=== PATIENT | male | born 1940 | race Caucasian/White ===

== ENCOUNTER → 2017-10-08 09:50 | Outpatient (CLI) | payer MEDICARE, BC ==
[2015-10-31 09:19] VITALS: BMI 30.5
[~2017-10-08 09:50] MED LIST: CHLORTHALIDONE50 MG PO; FLAGYL500 MG PO; GLUCOPHAGE1000 MG PO; HUMULIN R100 U/ML; HYDROCODONE-APA1 TAB PO; KLOR-CON M2020 MEQ PO; LEVAQUIN500 MG PO; LOTREL 10-40 M1 EACH PO; MULTIPLE VITAMI1 TA1 PO; PROSCAR5 MG PO; PROTONIX40 MG PO; TENORMIN100 MG PO; ZYLOPRIM300 MG PO; [UNRECOGNIZED DRUG - CODE] INJ
[2017-10-08 10:23] LABS: ANION GAP 13.6 mmol/L (8-16); CALCIUM 9.1 mg/dL (8.5-10.1); CARBON DIOXIDE 28.3 mmol/L (21.0-32.0); CREATININE - SERUM 1.2 mg/dL (0.6-1.3); POTASSIUM - SERUM 3.9 mmol/L (3.5-5.1)
== END | disposition home or self-care (01) ==
LOC: D.LAB 10-07 10:15 → D.MRI 10-07 10:30 → D.LAB 09:50
PROVIDERS: Family Medicine
DX: R42 Dizziness and giddiness (principal)

== ENCOUNTER → 2018-02-17 11:00 | Outpatient (CLI) | payer MEDICARE, BC ==
[2015-10-31 09:19] VITALS: BMI 30.5
--- NOTE | ~2018-02-17 | EC ---
PATIENT:WILEY KOWALSKI DATE OF SERVICE: 02/17/18 SEX: M MEDICAL RECORD: [id number] DATE OF : 38 LOCATION:D[facility] AGE OF PATIENT: 77 ADMISSION DATE: 02/17/18 REFERRING PHYSICIAN: INTERPRETING PHYSICIAN: DIAMANTE CARLOS MD ECHOCARDIOGRAM REPORT ECHO CHARGES 4 ECHO COMPLETE Date: 02/17 CLINICAL DIAGNOSIS: FATIGUE,AORTIC STENOSIS,ANGINA ECHOCARDIOGRAPHIC MEASUREMENTS (adult normal given) AC root (d.<3.7cm) 3.7 cm LV Septum d (<1.2 cm> 1.9 cm Valve Excursion 1.3 cm LV Septum (systole) 2.1 cm Left Atria (s.<4.0cm> 4.8 cm LVPW d(<1.2cm) 1.7 cm RV (d.<2.3cm) 3.7 cm LVPW (sytole) 2.2 cm LV diastole(<5.6CM) 4.9 cm MV E-F(>70mm/sec) cm LV systole 3.1 cm LVOT Diameter 1.4 cm MV exc.(>10mm) 2.1 cm Est.ejection fraction (50-75%) % DOPPLER: LVIT cm/sec A 76.0 cm/sec E 150 cm/sec LA cm/sec RVSP 56 mmHg LVOT 137 cm/sec AOP1/2T m/s Asc. Ao 284 cm/sec RVOT 103 cm/sec RA cm/sec PA 126 cm/sec AV Gradient Peak 32.19mmHg AV Mean 17.02mmHg AV Area 0.7 cm MV Gradient Peak 8.73 mmHg MV Mean 2.65 mmHg MV Area cm COMMENTS: MARYLU TRACED 1.6CM Flight Controls Engineer: Mirza BABB Stage Manager: Rahul Carlos TAPE# PACS Pericardial Effusion N DATE OF SERVICE: 02/17/2018 PROCEDURE: Transthoracic echocardiogram. FINDINGS: 1. Left ventricle shows evidence of left ventricular hypertrophy. Inflow characteristics, however, normal. Ejection fraction is 60% without any regional wall motion abnormalities. 2. The left atrium is moderate to severely dilated. 3. The mitral valve has mild mitral regurgitation. ECHOCARDIOGRAM REPORT [id number] WILEY KOWALSKI 4. The aortic valve is thickened. There is evidence of mild aortic stenosis with a peak gradient of 30 mmHg. It is a trileaflet structure and has good leaflet motility at the tips. 5. The tricuspid valve has mild tricuspid regurgitation, RVSP of 50 mmHg. 6. The pericardium is normal. 7. The right ventricle and right atrium are mildly dilated. CONCLUSION: The patient has evidence of mild hypertensive heart disease, dilatation of the left atrium, and evidence of mild aortic stenosis. TRANSINT:[id number] Voice Confirmation ID: [id number] DOCUMENT ID: [id number] DIAMANTE CARLOS MD at 0819 CC: [id number] DICTATION DATE: 02/18/18 0859 SUPERVISOR POULTRY HATCHERY: 02/18/18 [address] [facility] CLI 02/17/18 [facility] [address] [place] [address]
== END | disposition home or self-care (01) ==
LOC: D.ECHO 11:00
DX: R06.00 Dyspnea, unspecified (principal); R53.83 Other fatigue; I35.0 Nonrheumatic aortic (valve) stenosis; I20.9 Angina pectoris, unspecified; R06.09 Other forms of dyspnea; I73.9 Peripheral vascular disease, unspecified; I25.10 Atherosclerotic heart disease of native coronary artery without angina pectoris; R09.89 Other specified symptoms and signs involving the circulatory and respiratory systems

== ENCOUNTER → 2018-03-16 19:14 | Outpatient (CLI) | payer MEDICARE, BC ==
[2015-10-31 09:19] VITALS: BMI 30.5
[~2018-03-16 19:14] MED LIST changes: +BAYER CHEWABLE81 MG PO; +COLACE100 MG PO; +CORDARONE200 MG PO; +GLUCOTROL 5 MG T5 MG PO; +HEMOCYTE PLUS C1 CAP PO; +K-DUR20 MEQ PO; +LOTENSIN5 MG PO; +MECLIZINE HCL25 MG PO; +NORVASC5 MG PO; +NOVOLIN N100 U/ML SQ; +NOVOLIN R100 U/ML SQ; +PACERONE200 MG PO; +PERCOCET 5-3251 TAB PO; +TENORMIN50 MG PO
[2018-03-16 21:15] LABS: CHOL - HDL RATIO 5.5 ratio (2.3-4.9); LDL-HDL RATIO 3.4 ratio (1.5-3.5)
== END | disposition home or self-care (01) ==
LOC: D.LAB 19:14
PROVIDERS: Internal Medicine Cardiovascular Disease
DX: E78.5 Hyperlipidemia, unspecified (principal)

== ENCOUNTER 2018-03-26 06:27 | Outpatient (CLI) | payer MEDICARE, BC ==
[~2018-03-26] VITALS: Ht 175.3 cm; Wt 94.5 kg
--- NOTE | ~2018-03-26 | HEMODYNAMI ---
PATIENT:WILEY KOWALSKI MEDICAL RECORD: [id number] : 38 LOCATION:D.[facility] ADMISSION DATE: 03/26/18 Generatedon:03/26/20189:52 Patient name: WILEY KOWALSKI Patient #: [id number] SSN: : 1940 Date of study: 03/26/2018 Page: Of Hemodynamic Procedure Report Patient Data Patient Demographics Procedure consent was obtained First Name: WILEY Gender: Male Last Name: DEX : 1940 [facility] Initial: FRANK Age: 77 year(s) Patient #: [id number] Race: Unknown Additional ID: [id number] Contact details Address: [address] [place] [address] State: [place] City: [facility] Zip code: [address] Past Medical History Allergies Allergen Reaction Date Comments Reported Other allergy 03/26/2018 FLOMAX,TERAZOSIN Admission Admission Data Admission Date: 03/26/2018 Admission Time: 6:27 Admit Source: Other Lab Results Lab Result Date: 03/26/2018 Lab Result Time: 7:12 Biochemistry Name Units Result Min Max BUN mg/dl 18 --(---*)-- 7 18 Creatinine mg/dl 1.3 --(---*)-- 0.6 1.3 CBC Name Units Result Min Max Hematocrit % 35.9 *-(----)-- 42 54 Hemoglobin g/dl 10.6 *-(----)-- 13.5 17.5 Procedure Procedure Types Cath Procedure Diagnostic Procedure Right Heart RHC and LHC w/Coronaries Sedation Charges Moderate Sedation up to 30 minutes Procedure Description Procedure Date Procedure Date: 03/26/2018 Procedure Start Time: 9:13 Procedure End Time: 9:51 Procedure Staff Name Function Christofer Levi MD Performing Physician Dario Rene RT Monitor Katherin Lemon RT Scrub Amaury Faust RN Nurse Procedure Data Cath Procedure Fluoroscopy Diagnostic fluoroscopy Total fluoroscopy Time: 8.3 time: 8.3 min min Diagnostic fluoroscopy Total fluoroscopy dose: dose: 1339 mGy 1339 mGy Contrast Material Contrast Material Type Amount (ml) Isovue 370 57 Entry Location Entry Primary Successful Side Size Upsize Upsize Entry Closure Haider ccessful Closure Location (Fr) 1 (Fr) 2 (Fr) Remarks Device Remarks Radial Right 6 Fr Mechanical artery Short Compression Femoral Right 7 Fr Manual artery Short Compression Estimated blood loss: 5 ml Diagnostic catheters Device Type Used For End Catheter Placement SWAN 7Fr Thermodilution Procedure cather (131F7P) DIAGNOSTIC [place] 110cm 5 Procedure Fr catheter ([id number]) Procedure Complications No complications Procedure Medications Medication Administration Route Dosage Oxygen etCO2 Nasal cannula 2 l/min 0.9% NaCl I.V. 100 ml/hr Heparin Flush Bag added to field 2 bags (1000units/500ml NS) Radial Cocktail added to field 1 syringe (Verapomil 2mg/Nitro 400mcg/Heparin 1500units) Fentanyl I.V. 25 mcg Versed I.V. 1 mg Radial Cocktail I.A. 1 syringe (Verapomil 2mg/Nitro 400mcg/Heparin 1500units) Fentanyl I.V. 25 mcg Versed I.V. 0.5 mg Hemodynamics Rest HGB: 10.6 (g/dl) Heart Rate: 71 (bpm) Oxygen Saturations Time Location Saturations Hgb (g/dl) O2 Content Use (%) (ml/L) 9:18 PCW 79.4 9:19 AO 96.5 9:20 PA 68.5 9:24 RV 70.4 9:25 RA 72.2 Pressure Samples Time Site Value (mmHg) Purpose Heart Use Rate(bpm) 9:19 PCW 23/28(23) Snapshot 65 9:20 PA 49/23(34) Snapshot 66 9:24 RV 56/12,20 Snapshot 65 9:25 RA 21/19(18) Snapshot 65 9:25 RA 20/20(18) Snapshot 74 9:37 LV 171/3,28 EDP 67 9:38 LV 176/2,26 Snapshot 67 9:39 AO 146/65(98) Pullback 70 9:39 LV 175/5,25 Pullback 70 Gradients Valve Time Site 1 Site 2 Mean SEP/DFP Peak To Heart Use (mmHg) (sec/min) Peak Rate (mmHg) (bpm) Aortic 9:39 LV AO 20 16 29 70 175/5,25 146/65(98) Thermodilution Cardiac Output Time Cardiac Output (l/min) Use 9:22 7.05 l/m 9:23 6.65 l/m Calculations Vascular Value Indexed CO SV CO CI Resistance (dyne) values (ml/beat) (l/min) (l/(min*m)) TSVR 1142.34 Thermal 103.79 6.85 SVR 930.66 TPVR 401.09 PVR 134.31 PVR/SVR 0.14 Systolic Diastolic Ejection Regurgitation SW SW I TPVR/TSVR 0.35 Vol. Vol. (%) (%) Source Thermal Left 10 0.05 Right 22.69 Source Thermal Content (ml/l) O2 Difference (ml/l) O2 SA 139.11 SA-MV(AV) 35.03 O2 MV 104.08 PV-PA(VA) O2 PA 98.75 PV-MV(VV) Valve P-P Mean Valve Index Valve Source Name Gradient Area Flow (cm2) Aortic 29 20 2.21 437.98 Thermal 29 20 Snapshots Thermal Samples Pre Cath Intra NCS Post Cath Vital Signs Time Heart Resp SPO2 etCO2 NIBP (mmHg) Rhythm Pain Sedation Rate (ipm) (%) (mmHg) Status Level (bpm) 8:56:42 72 19 99 0 160/82(130) NSR 0 (11) 10(A) , No pain 9:01:01 70 17 99 0 163/79(135) NSR 0 (11) 10(A) , No pain 9:05:19 71 17 100 0 165/85(134) NSR 0 (11) 10(A) , No pain 9:09:41 70 19 99 26.1 156/79(128) NSR 0 (11) 10(A) , No pain 9:14:05 70 18 98 28.3 156/80(126) NSR 0 (11) 10(A) , No pain 9:18:25 65 17 97 26.1 140/74(113) NSR 0 (11) 10(A) , No pain 9:22:39 65 16 97 28.3 144/72(120) NSR 0 (11) 10(A) , No pain 9:26:55 66 17 97 31.3 145/76(119) NSR 0 (11) 10(A) , No pain 9:31:13 65 17 96 32 133/66(117) NSR 0 (11) 10(A) , No pain 9:35:25 66 17 96 31.3 137/71(115) NSR 0 (11) 10(A) , No pain 9:39:05 65 16 96 11.1 137/70(117) NSR 0 (11) 10(A) , No pain 9:43:18 67 16 97 30.5 138/71(117) NSR 0 (11) 10(A) , No pain 9:47:32 63 16 97 31.2 148/72(117) NSR 0 (11) 10(A) , No pain Medications Time Medication Route Dose Verified Delivered Reason Notes Effectiveness by by 8:55:50 Oxygen etCO2 2 l/min Christofer Amaury Per Nasal Amita Faust RN physician cannula 8:55:59 0.9% NaCl I.V. 100 Christofer Amaury Per ml/hr Amita Faust RN physician 8:56:06 Heparin Flush added 2 bags Christofer Amaury used for Bag to Amita Faust RN procedure (1000units/500ml field LINDSEY NS) 8:58:15 Radial Cocktail added 1 Christofer Amaury used for (Verapomil to syringe Amita Faust RN procedure 2mg/Nitro field LINDSEY 400mcg/Heparin 1500units) 9:08:09 Fentanyl I.V. 25 mcg Christofer Amaury for sedation Amita Faust RN, MD 9:08:17 Versed I.V. 1 mg Christofer Amaury for sedation Amita Faust RN, MD 9:12:23 Radial Cocktail I.A. 1 Christofer Christofer for (Verapomil syringe Amita Levi MD vasodilation 2mg/Liam LINDSEY 400mcg/Heparin 1500units) 9:29:43 Fentanyl I.V. 25 mcg Christofer Christofer for sedation Amita Levi MD, MD 9:29:49 Versed I.V. 0.5 mg Christofer Christofer for sedation Amita Levi MD, MD Procedure Log Time Note 8:30:26 Katherin Lemon RT(R) sent for patient. Start room use. 8:37:50 Informed consent obtained and on chart 8:37:53 Admit Source: Other 8:38:24 Diagnostic Cath status Elective 8:38:27 Time tracking: Regular hours (M-F 7:00 - 5:00) 8:38:38 Plan of Care:Hemodynamics will remain stable., Cardiac rhythm will remain stable., Comfort level will be maintained., Respiratory function will remain adequate., Patient/ family verbilizes understanding of procedure., Procedure tolerated without complication., Recovers from procedure without complications.. 8:38:59 H&P Date Dictated: 03/24/2018 Within 30 days and on chart., H&P Addendum completed by physician on day of procedure. (MUST COMPLETE FOR ALL OUTPATIENTS). 8:40:17 Lab Result : Creatinine 1.3 mg/dl 8:40:17 Lab Result : BUN 18 mg/dl 8:40:17 Lab Result : Hematocrit 35.9 % 8:40:17 Lab Result : Hemoglobin 10.6 g/dl 8:45:29 Patient received from Pre/Post Procedure Room to [facility] 2 Alert and oriented. Tansferred to table in Supine position. 8:45:29 Warm blankets applied, and abhinav hugger turned on for patient comfort. 8:45:30 Correct patient and procedure confirmed by team. 8:45:31 ECG and BP/O2 sat monitors applied to patient. 8:45:33 Pre-procedure instructions explained to patient. 8:45:33 Pre-op teaching completed and patient verbalized understanding. 8:55:31 Vital chart was started 8:55:50 Oxygen 2 l/min etCO2 Nasal cannula was administered by Amaury Faust RN; Per physician; 8:55:59 0.9% NaCl 100 ml/hr I.V. was administered by Amaury Faust RN; Per physician; 8:56:06 Heparin Flush Bag (1000units/500ml NS) 2 bags added to field was administered by Amaury Faust RN; used for procedure; 8:58:15 Radial Cocktail (Verapomil 2mg/Nitro 400mcg/Heparin 1500units) 1 syringe added to field was administered by Amaury Faust RN; used for procedure; 9:04:19 Family in waiting room. 9:04:21 Patient NPO since Midnight. 9:04:36 Patient allergic to Other allergyFLOMAX,TERAZOSIN 9:04:37 Is patient on blood thinner?Yes 9:04:40 ACC The patient was administered the following blood thiners within the last 24 hours: ACCPlavix 9:04:41 Patient diabetic? Yes. 9:04:41 If diabetic: On Metformin? Yes 9:05:08 If on Metformin: Last Dose? 03/25/2018 9:05:45 Previous problem with sedation/anesthesia? No ? 9:05:46 Snore? Yes 9:05:46 Sleep apnea? No 9:05:47 Deviated septum? No 9:05:48 Opens mouth fully? Yes 9:05:49 Sticks out tongue? Yes 9:05:51 Airway obstruction? No ? 9:05:53 Dentures? Yes IN TIGHT 9:06:27 Pre procedure: right dorsailis pedis pulse 2+ Normal; easily identifiable; not easily obliterated 9:06:49 Modified Adama's test Ulnar < 7 seconds 9:06:51 Patient pain scale 0/10 ?. 9:06:57 IV patent on arrival in left forearm with 0.9% NaCl at O. 9:06:58 Lab results completed and on chart. 9:07:00 Right Radial & Right Groin area was prepped with chlora-prep and draped in sterile fashion 9:07:01 Alarms reviewed by R. N. 9:07:01 Sharps counted by scrub and verified by R.N. 9:07:04 Use device set Radial Dx or PCI 9:07:05 ACIST Syringe (70248) opened to sterile field. 9:07:05 Medline Cath Pack ([id number]) opened to sterile field. 9:07:06 Bag Decanter (2002S) opened to sterile field. 9:07:07 ACIST Manifold (99667) opened to sterile field. 9:07:08 ACIST Hand Control (40046) opened to sterile field. 9:07:10 SHEATH 6Fr Prelude Radial ([id number]) opened to sterile field. 9:07:10 DIAGNOSTIC WIRE .035 260cm J wire (315024) opened to sterile field. 9:07:11 Tegaderm 4 x 4 (1626W) opened to sterile field. 9:07:11 MBrace Wrist Support ([id number]) opened to sterile field. 9:07:17 SHEATH 7FR Thicket (XLS170) opened to sterile field. 9:07:54 Physician arrived 9:07:54 --------ALL STOP TIME OUT------ 9:07:55 Final Timeout: patient, procedure, and site verified with staff and physician. All members of the team are in agreement. 9:07:57 Right Radial & Right Groin site verified by team. 9:07:59 Physical assessment completed. ASA score P 2 - A patient with mild systemic disease as per Christofer Levi MD. 9:08:01 Sedation plan: IV Moderate Sedation Medication:Versed, Fentanyl 9:08:05 MICROPUNCTURE 4FR Cook (R87388) opened to sterile field. 9:08:09 Fentanyl 25 mcg I.V. was administered by Amaury Faust RN; for sedation; 9:: Versed 1 mg I.V. was administered by Amaury Faust RN; for sedation; 9:08:17 Baseline sample Acquired. 9:08:20 Rhythm: sinus rhythm 9:12:23 Radial Cocktail (Verapomil 2mg/Nitro 400mcg/Heparin 1500units) 1 syringe I.A. was administered by Christofer Levi MD; for vasodilation; 9:12:58 Procedure started. 9:12:58 Full Disclosure recording started 9:13:05 Local anesthetic to right radial artery with Lidocaine 2% by Christofer Levi MD.INITIAL ACCESS ONLY 9:13:11 A 6 Fr Short sheath was inserted into the Right Radial artery 9:13:14 Zero performed for pressure channel P1 9:14:17 Local anesthetic to right femoral artery with Lidocaine 2% by Christofer Levi MD.ADDITIONAL ACCESS 9:14:18 Access obtained with 4Fr micropunture. 9:14:28 A 7 Fr Short sheath was inserted into the Right Femoral artery 9:17:14 A SWAN 7Fr Thermodilution cather (131F7P) was advanced over the wire and used for Procedure. 9:18:08 PCW saturation: 79.4% 9:19:30 AO saturation: 96.5% 9:20:35 PA saturation: 68.5% 9:22:41 Thermodilution performed using a Kovacs 131F7 7.0 Fr 19-22C 10.00 mL. Injectate temperature was 16.64 C, CO: 7.05 L/min, average CO: 6.85 L/min 9:23:22 Thermodilution performed using a Kovacs 131F7 7.0 Fr 19-22C 10.00 mL. Injectate temperature was 16.62 C, CO: 6.65 L/min, average CO: 6.85 L/min 9:24:16 RV saturation: 70.4% 9:25:50 RA saturation: 72.2% 9:26:28 Catheter removed. 9:26:36 A DIAGNOSTIC [place] 110cm 5 Fr catheter (133520) was advanced over the wire and used for Procedure. 9:28:52 LCA angiography performed. 9:29:43 Fentanyl 25 mcg I.V. was administered by Christofer Levi MD; for sedation; 9::49 Versed 0.5 mg I.V. was administered by Christofer Levi MD; for sedation; 9:31:11 RCA angiography performed. 9:32:08 GLIDE WIRE ANGLE 260cm (EO2063) opened to sterile field. 9:32:24 GLIDE WIRE ADVANCED TO ACCESS LV 9:36:33 Catheter exchanged over wire. 9:36:58 GUIDE 6FR MB 2 catheter (LA6MB2) opened to sterile field. 9:37:58 LV gram done using BONE 9:38:03 Injector settings: Ml/sec: 12, Volume: 8, 9:39:14 LV hemodynamics recorded. 9:40:12 EF : 65 % 9:40:17 Catheter removed. 9:40:21 TR BAND Standard (BWQ83IUM) opened to sterile field. 9:41:25 Sheath removed intact; hemostasis achieved with Mechanical Compression to the Right Radial artery. 9:41:32 Sheath removed intact; hemostasis achieved with Manual Compression to the Right Femoral artery. 9:41:36 Procedure ended.(Physican Out) 9:42:09 Fluoroscopy time 08.30 minutes. 9:42:12 Fluoroscopy dose: 1339 mGy 9:42:12 Flurop Dose total: 1339 9:42:17 Contrast amount:Isovue 370 57ml. 9:42:19 Sharps counted by scrub and verified by R.N. 9:42:29 TR band inflated with 12cc of air. 9:42:31 Insertion/operative site no bleeding no hematoma. 9:43:03 Post-op/insertion site Right Femoral vein dressed using a 4 x 4 and Tegaderm. 9:43:35 Post right radial artery:stable, soft, clean and dry 9:43:41 Post left femoral vein:stable, soft, clean and dry 9:43:43 Post Procedure Pulses reassessed and unchanged 9:45:10 Post-procedure physical assessment completed. ASA score P 2 - A patient with mild systemic disease as per Christofer Levi MD. 9:46:32 Post procedure rhythm: sinus rhythm 9:46:36 Estimated blood loss: 5 ml 9:46:38 Post procedure instruction explained to patient.Patient verbalizes understanding. 9:46:38 Patient needs reinforcement of post procedure teaching. 9:48:21 Procedure type changed to Cath procedure, Diagnostic procedure, Right Heart, RHC and LHC w/Coronaries, Sedation Charges, Moderate Sedation up to 30 minutes 9:50:37 Procedure and supply charges have been captured, reviewed, submitted and are correct. 9:50:40 Procedure Complication : No complications 9:50:43 Vital chart was stopped 9:50:44 See physician's report for complete and final results. 9:50:53 Report given to Pre/Post Procedure Room. 9:50:56 Patient transfered to Pre/Post Procedure Room with Stretcher. 9:50:59 Procedure ended. 9:50:59 Full Disclosure recording stopped 9:51:05 End room use (Document Last) Device Usage Item Name Manufacture Quantity Catalog Number Hospital Part Current M inimal Lot# / Charge Number Stock Stock Serial# Code ACIST Syringe Acist 1 23173 907523 028288 424365 2 0 (06052) Medical Systems Inc Medline Cath Cardinal 1 [id number] 237193 64101 991046 5 [facility] ([id number]) Bag Decanter Microtek 1 190046 12311 548488 5 () Medical Inc. ACIST Manifold Acist 1 11041 797330 522126 833566 5 (24611) Medical Systems Inc ACIST Hand Acist 1 96070 416698 589923 662684 5 Control (18341) Medical Systems Inc SHEATH 6Fr Merit 1 [id number] 518429 115574 642827 5 Prelude Radial Medical ([id number]) DIAGNOSTIC WIRE [place] 1 224731 324769 184345 043730 3 0 .035 260cm J wire (004753) Tegaderm 4 x 4 3M 1 1626W 099982 506459 013734 5 (1626W) MBrace Wrist Advanced 1 140-0250-00 022718 45005 822011 5 Support Vascular ([id number]) Dynamics SHEATH 7FR Terumo 1 FZW378 882509 026434 892695 5 Thicket (PEF169) MICROPUNCTURE Cook Medical 1 S21420 619789 790054 508943 5 4FR Cook (E05665) SWAN 7Fr Kovacs 1 131F7P 514014 58719 431130 3 Thermodilution Lifesciences cather (131F7P) DIAGNOSTIC Terumo 1 40-1093 281574 810382 348641 5 [place] 110cm 5 Fr catheter (625300) GLIDE WIRE Terumo 1 YU7573 095902 913716 686717 5 ANGLE 260cm (LG9024) GUIDE 6FR MB 2 Medtronic 1 LA6MB2 885647 74876 404362 1 catheter (LA6MB2) TR BAND Terumo 1 [id number] 048748 894511 785796 4 0 Standard ([id number]) Signature Audit [place] Stage Time Signature Unsigned Intra-Procedure 03/26/2018 Dario Rene 9:52:21 AM RT(R) Signatures Monitor : Dario Rene RT Signature : Date : Time : [facility] [address] [address]
[~2018-03-26 06:27] MED LIST changes: -BAYER CHEWABLE81 MG PO; -COLACE100 MG PO; -CORDARONE200 MG PO; -GLUCOTROL 5 MG T5 MG PO; -HEMOCYTE PLUS C1 CAP PO; -K-DUR20 MEQ PO; -LOTENSIN5 MG PO; -MECLIZINE HCL25 MG PO; -NORVASC5 MG PO; -NOVOLIN N100 U/ML SQ; -NOVOLIN R100 U/ML SQ; -PACERONE200 MG PO; -PERCOCET 5-3251 TAB PO; -TENORMIN50 MG PO
[2018-03-26] MEDS ORDERED: CHLORTHALIDONE50 MG PO (06:44)
[2018-03-26] MEDS ORDERED: NOVOLIN R100 U/ML SQ (06:46)
[2018-03-26] MEDS ORDERED: NOVOLIN N100 U/ML SQ (06:46)
[2018-03-26] MEDS ORDERED: GLUCOTROL 5 MG T5 MG PO (06:47)
[2018-03-26] MEDS ORDERED: MECLIZINE HCL25 MG PO (06:47)
[2018-03-26] MEDS ORDERED: BAYER CHEWABLE81 MG PO (06:48)
[2018-03-26 06:56] VITALS: BP 169/70; Ht 175.3 cm; Wt 94.5 kg
[2018-03-26 07:17] LABS: BASOPHILS 0.5 % (0-2); HEMATOCRIT 35.9 % (42.0-54.0); HEMOGLOBIN 10.6 g/dL (13.5-17.5); IMMATURE GRANULOCYTES 0.2 % (0-5); LYMPHOCYTES 12.3 % (15-50); MCH 20.8 pg (26.0-34.0); MCHC 29.5 g/dL (31.0-37.0); MCV 70.4 fL (80.0-100.0); MEAN PLATELET VOLUME 9.8 fL (7.4-10.4); MONOCYTES 9.4 % (2-11); NEUTROPHILS 73.6 % (40-80); PLATELET COUNT 260 10x3/uL (130-400); RDW 17.5 % (11.5-14.5); WBC 8.2 10x3/uL (4.8-10.8)
[2018-03-26 07:40] LABS: ANION GAP 12.9 mmol/L (8-16); CALCIUM 9.3 mg/dL (8.5-10.1); CARBON DIOXIDE 28.6 mmol/L (21.0-32.0); CREATININE - SERUM 1.3 mg/dL (0.6-1.3); POTASSIUM - SERUM 3.5 mmol/L (3.5-5.1)
== END 2018-03-26 12:15 | disposition home or self-care (01) ==
LOC: D.CATH 06:27
PROVIDERS: Internal Medicine Cardiovascular Disease
DX: I25.10 Atherosclerotic heart disease of native coronary artery without angina pectoris (principal); I35.0 Nonrheumatic aortic (valve) stenosis; I27.20 Pulmonary hypertension, unspecified; Z01.812 Encounter for preprocedural laboratory examination

== ENCOUNTER 2018-04-15 08:00 | Inpatient (IN) | payer MEDICARE, BC ==
[~2018-04-15] VITALS: Ht 175.3 cm; Wt 94.5 kg
--- NOTE | ~2018-04-15 | TEE ---
PATIENT:WILEY KOWALSKI MEDICAL RECORD: [id number] LOCATION:[place] [address] AGE OF PATIENT: 77 ADMISSION DATE: 04/16/18 SEX: M REFERRING PHYSICIAN: INTERPRETING PHYSICIAN: DIAMANTE CARLOS MD TRANSESOPHAGEAL ECHOCARDIOGRAM Date: 04/16/18 GINNY CHARGE Y INDICATIONS: CABG/AVR PREMEDICATIONS: PATIENT'S RESPONSE PROCEDURE DOPPLER MEASUREMENTS: LVIT LA PA RA LVOT RVOT Asc. Ao AV Gradient Peak AV Mean AV Area MV Gradient Peak MV Mean MV Area INTERPRETATION: Doppler: 2-D: EF 60%,AORTIC STENOSIS COLOR FLOW DOPPLER TRACE MR NORMAL SALINE STUDY: MISCELLANOUS: DIAGNOSIS: PLAN: Astro Technician:4 Dr. Carlos School Photographs Detailer: Mirza BABB COMMENTS: SHANNON PATIENT DATE OF SERVICE: PROCEDURE: Intraoperative transesophageal echocardiogram. FINDINGS: 1. The left ventricle appears to be normal structure and function. 2. The mitral valve appears to be structurally normal with no mitral regurgitation pre-CABG. 3. The aortic valve is thickened preaortic valve replacement. TRANSESOPHAGEAL ECHOCARDIOGRAM REPORT [id number] WILEY KOWALSKI 4. The right atrium appears to be normal with a catheter or pacer artifact. 5. Post-coronary artery bypass grafting, the left ventricular function still appears to be very normal. There is mild mitral regurgitation. The aortic valve itself appears to be replaced with normal function. There appears to be a trace aortic valve leakage, otherwise prosthetic valvular function. TRANSINT:[id number] Voice Confirmation ID: [id number] DOCUMENT ID: [id number] at 1702 CC: [id number] DICTATION DATE: 05/04/18812 PROGRAM SPECIALIST: 05/04/18 1158 DIS IN 04/23/18 [facility] [address] [place] [id number]
--- NOTE | ~2018-04-15 | OP ---
PATIENT NAME: WILEY KOWALSKI MEDICAL RECORD: [id number] :38 LOCATION:D.CVI D.CV03 ADMISSION DATE:04/16/18 SURGEON: SABA SHANNON MD DATE OF OPERATION: 04/16/2018 SURGEON: Saba Shannon MD CAPACITY PLANNING ENGINEER: JOSE ALFREDO Bingham OPERATION PERFORMED: 1. Aortic valve replacement (23 mm pericardial aortic bioprosthesis). 2. Coronary artery bypass graft times 1 (left internal mammary artery to LAD). 3. Pulmonary vein radiofrequency ablation. 4. Left atrial appendage occlusion. ANESTHESIA: General endotracheal anesthesia. ESTIMATED BLOOD LOSS: Total cardiopulmonary bypass. SPECIMENS: Aortic valve leaflets. COMPLICATIONS: None. CONDITION: Stable. DISPOSITION: CV ICU. OPERATIVE FINDINGS: 1. Calcified valve leaflets as seen on the transesophageal echo with estimated aortic valve 0.5 cm-squared and postoperatively no perivalvular leak. 2. Good quality left internal mammary artery, LAD 1.75 mm with intramyocardial and moderate to severe disease. 3. Bilateral pulmonary vein isolation. 4. Broad-based left atrial appendage, 45 mm occlusion device placed. INDICATION: Aortic stenosis, coronary artery disease. PROCEDURE IN DETAIL: This is a redictation of a previously dictated operative note #[id number]. The patient was brought to the operative suite. General anesthesia was obtained, the patient was prepped and draped. Median sternotomy incision was made. Subcutaneous tissue was divided with electrocautery. Sternum was divided with a saw. The left hemisternum was elevated. The left pleural cavity was entered. Left internal mammary vein was taken as a pedicle graft. Sternal retractor was placed. Pericardium was opened. Heparin was given. The patient was cannulated, placed on cardiopulmonary bypass. The pulmonary veins were dissected out and pulmonary vein radiofrequency ablation was performed. Left atrial appendage occlusion device was placed after crossclamp and cardioplegia, which was antegrade and retrograde. The aortic valve replacement was performed first, transverse aortotomy. Valve leaflets removed, valve debrided, valve sized to 23 mm. The valve was carefully lowered in place. Suture was tied. Aortotomy was closed. The coronary artery bypass graft was performed in standard technique. The patient was placed in steep Trendelenburg position. The left ventricular apex was de-aired. The aortic root vent and cardioplegia site was used for deairing and the transesophageal echocardiography confirmed no air. The patient's crossclamp was removed and OPERATIVE REPORT [id number] WILEY KOWALSKI weaned from cardiopulmonary bypass and was stable. The vent site was closed. Protamine was given. The patient was decannulated. The cannula sites were oversewn. With the patient stable and the graft lying appropriately, the atrial and ventricular pacing wires were placed. Drains were placed. Pericardial fat was loosely reapproximated. Left chest was evacuated and irrigated. The internal mammary artery harvest site was made hemostatic. Sternal wires were placed. Fascia was closed. Subcutaneous tissue was closed. Skin was closed. Dermabond was placed. The needle and sponge counts were reported as correct and the patient was taken to ICU in stable condition. TRANSINT:[id number] Voice Confirmation ID: [id number] DOCUMENT ID: [id number] SABA SHANNON MD at 1000 CC: [id number] DICTATION DATE: 04/17/18 165 CLERICAL STOCK INSPECTOR: 04/17/18 1825 ADM IN [facility] [address] [place] [address]
--- NOTE | ~2018-04-15 | HP ---
PATIENT: WILEY KOWALSKI MEDICAL RECORD: [id number] ACCOUNT: [id number] LOCATION:[facility] : 39 ADMISSION DATE: 04/15/18 HISTORY AND PHYSICAL EXAMINATION NameWILEY KOWALSKI (77yo, M) ID# [id number]. Date/Time03/31/2018 10:10LQIHY35/194[facility] Dept.NP_[facility] ClinicProviderSABA SHANNON MDInsuranceMed Primary: [place] ([place] Insurance # : [id number] Referring Provider Name : KAITLIN LINTON Employer Name : RETIRED Med Secondary: [place] Insurance # : [id number] Policy/Group # : [id number] Referring Provider Name : KAITLIN LINTON Employer Name : RETIRED Prescription: DSTPSDIR - Member is eligible. Chief Complaint Coronary artery disease, Aortic insufficiency Patient's Care Team Referring Provider (): KAITLIN LINTON: [address] [place] [phone], , Patient's Pharmacies [facility] (ERX): [address] [place] [address] [place] [address], , [facility]33 (ERX): [address] [place] [address], , Vitals BP:162/64 sitting L arm 03/31/2018 11:22 am 160/66 sitting R arm 03/31/2018 11:23 amBP Cuff Size:adult 03/31/2018 11:22 am adult 03/31/2018 11:23 amHR:60,reg 03/31/2018 11:23 amHt:5 ft 9 in 03/31/2018 11:22 amWt:208 lbs 03/31/2018 11:23 amNotes:had rheumatic fever at age [age]. Has recently had left chest pressure while walking up hill, had to stop and rest because of fatigue. 03/31/2018 11:25 amBMI:30.7 03/31/2018 11:23 amAllergies Reviewed Allergies FLOMAX: - swellingLAC-HYDRINMedications Reviewed Medications allopurinol 300 mg ejdoiq97/13/[facility] JumpStart Wirelessamlodipine 10 mg-benazepril 40 mg zhpxcmi07/30/18 [facility] JumpStart Wirelessatenolol 100 mg aelpbr74/25/18 [facility] JumpStart Wirelesschlorthalidone 50 mg huzebv03/13/18 [facility] Nex[employer] Technology SystemsDOK 100 mg njygvfm46/15/18 [facility] JumpStart WirelessglipiZIDE 5 mg srdaml12/14/18 [facility] JumpStart WirelessHYDROcodone 7.5 mg-acetaminophen 325 mg zqhotr55/27/17 [facility] JumpStart WirelessKlor-Con M20 mEq tablet,extended vaydctl07/11/18 [facility] JumpStart Wirelessmeclizine 25 mg /03/17 [facility] JumpStart WirelessmetFORMIN 1,000 mg /27/18 [facility] JumpStart WirelessNovoLIN N NPH U-100 Insulin isophane 100 unit/mL subcutaneous susp03/30/18 [facility] JumpStart WirelessNovoLIN R Regular U-100 Insulin 100 unit/mL injection hijvqkky50/20/17 [facility] JumpStart Wirelesspantoprazole 40 mg tablet,delayed gvabfrn06/21/18 [facility] JumpStart WirelesstraMADol 50 mg tablet start filledKathy WilsonProblems Reviewed Problems Coronary arteriosclerosis - Onset: 03/27/2018 Aortic valve stenosis - Onset: 03/27/2018 Umbilical hernia HISTORY AND PHYSICAL [id number] WILEY KOWALSKI Benign prostatic hypertrophy with outflow obstruction Acquired trigger finger Family History Reviewed Family History Father- Diabetes mellitus - Malignant neoplastic diseaseMother- Heart diseaseSocial History Reviewed Social History Cardiology Family history of heart disease?: Y Smoking Status: Former smoker (Notes: quit 1967) High Cholesterol: N High blood pressure: Y Exercise level: Occasional Diabetes: Y Alcohol intake: None Occupation: Other Marital status: Is blood transfusion acceptable in an emergency?: Y Surgical History Reviewed Surgical History Other - RT SHOULDER SCOPE Umbilical hernia repair (surg) - 06/23/2015 Other - 2010 - LT KNEE SCOPE Other - 2003 - RT TKA prostate Past Medical History Reviewed Past Medical History Diabetes: Y - INSULIN High Blood Pressure: Y Shortness of Breath: Y Notes: ARTHRITIS, GOUT, fatigue Documents for Discussion N/A Screening None recorded. HPI Fatigue Reported by patient. Quality: continuous Severity: change in sleep patterns Duration: symptoms lasting over 2 weeks Timing: sudden Context: more trouble since diagnosis of heart issues Modifying Factors: new stressors in life Associated Symptoms: no drug/alcohol withdrawal; no depression; no anxiety; no snoring; periods of not breathing (apnea) have not been observed; no recent change in weight; suddenly falling asleep during the day 77-year-old male with significant exertional angina and dyspnea, early fatigue, denies palpitations syncope or near syncope. Negative stress test, moderate aortic stenosis, severe proximal LAD stenosis. Good left ventricular function. left atrium 4.8 cm. EKG sinus bradycardia 59 History of rheumatic fever 9 years old, history of murmur when he entered the [place]. HISTORY AND PHYSICAL [id number] WILEY KOWALSKI No previous history of aortic stenosis. Denies previous echocardiogram. Bilateral calf claudication, stops walking due to dyspnea before the legs stop him ROS Additionally reports: as reviewed in the chart with the patient ROS as noted in the HPI Physical Exam Patient is a 77-year-old male. Constitutional: General Appearance well nourished and developed and healthy-appearing. Level of Distress NAD. Ambulation ambulating normally. Cardiovascular: Apical Impulse not displaced. Heart Auscultation RRR and murmur. Neck Vessels no JVD. Arterial Pulses femoral 2+ bilateral. Edema no edema or varicosities. Lungs: Repiratory Effort no dyspnea. Percussion no hyperresonance or dullness or flatness. Auscultation no wheezing, rhonchi, or rales / crackles and breathing sounds normal, good air movement, and CTA except as noted. Abdomen: Bowl Sounds normal. Inspection and Palpation no tenderness, guarding, masses, or rebound tenderness and soft and non-distended. Liver non-tender and no hepatomegaly. Spleen non-tender and no splenomegaly. Ears, Nose, Throat: Hearing grossly normal hearing. Lips, Teeth, and Gums normal dentition. Oropharynx: moist mucous membranes. Musculoskeletal System: Gait And Stance normal gait and stance. Digits and Nails normal nails and no cyanosis. Joints, Bones, and Muscles normal strength and movement of all extremities. Neurologic: Cranial Nerves grossly intact. Sensation grossly intact. Lymph Nodes: Lymph Nodes no cervical LAD or supraclavicular LAD. Eyes: Lids and Conjunctivae no discharge or pallor and non-injected. Pupils PERRLA. Cornea grossly intact. EOM EOMI. Lens clear. Sclerae non-icteric. Neck: Neck no masses, enlarged lymph nodes, or carotid bruits and supple and trachea midline. Thyroid no enlargement or nodules and non-tender. Skin: Inspection and Palpation no rash, lesions, or ulcers. Assessment / Plan 1. Coronary arteriosclerosis I25.10: Atherosclerotic heart disease of [place] coronary artery without angina pectoris 2. Aortic valve stenosis I35.0: Nonrheumatic aortic (valve) stenosis AORTIC VALVE STENOSIS: CARE INSTRUCTIONS 3. Aortic stenosis, non-rheumatic I35.0: Nonrheumatic aortic (valve) stenosis Discussion Notes we discussed the rationale for surgery, risks, benefits, and alternatives, for HISTORY AND PHYSICAL [id number] WILEY KOWALSKI aortic valve replacement and coronary artery bypass graft. Discussed expected recovery. He gives consent. SABA SHANNON MD at 1006 CC: [id number] DICTATION DATE: 03/31/18 1055 BOAT CANVAS MAKER AND INSTALLER: MANNY 04/03/18 1146 PRE IN [facility] [address] [place] [address]
--- NOTE | ~2018-04-15 | TEE ---
PATIENT:WILEY KOWALSKI MEDICAL RECORD: [id number] LOCATION:[place] [address] AGE OF PATIENT: 77 ADMISSION DATE: 04/16/18 SEX: M REFERRING PHYSICIAN: INTERPRETING PHYSICIAN: DIAMANTE CARLOS MD TRANSESOPHAGEAL ECHOCARDIOGRAM Date: 04/16/18 GINNY CHARGE Y INDICATIONS: CABG/AVR PREMEDICATIONS: PATIENT'S RESPONSE PROCEDURE DOPPLER MEASUREMENTS: LVIT LA PA RA LVOT RVOT Asc. Ao AV Gradient Peak AV Mean AV Area MV Gradient Peak MV Mean MV Area INTERPRETATION: Doppler: 2-D: EF 60%,AORTIC STENOSIS COLOR FLOW DOPPLER TRACE MR NORMAL SALINE STUDY: MISCELLANOUS: DIAGNOSIS: PLAN: Manager Of School:4 Dr. Carlos Insurance Marketing Rep: 2 ROYAL BABB COMMENTS: SHANNON PATIENT DATE OF SERVICE: PROCEDURE: Intraoperative transesophageal echocardiogram. FINDINGS: The patient had ejection fraction of 60%. Left atrium is mildly dilated. Mitral valve looks normal. The patient has severe aortic valve stenosis, status post replacement. The aortic valve appears to be functioning properly. There is no evidence of valvular dysfunction. There is trace paravalvular leak. TRANSESOPHAGEAL ECHOCARDIOGRAM REPORT [id number] WILEY KOWALSKI AILIN TRANSINT:[id number] Voice Confirmation ID: [id number] DOCUMENT ID: [id number] at 1435 CC: [id number] DICTATION DATE: 04/22/18927 TERRAZZO INSTALLER: 04/22/18 1400 DIS IN 04/23/18 [address] [place] [id number]
[~2018-04-15 08:00] MED LIST changes: +BAYER CHEWABLE81 MG PO; +GLUCOTROL 5 MG T5 MG PO; +MECLIZINE HCL25 MG PO; +NOVOLIN N100 U/ML SQ; +NOVOLIN R100 U/ML SQ
[2018-04-15 09:11] LABS: BASOPHILS 0.9 % (0-2); EOSINOPHILS 4.4 % (0-7); HEMATOCRIT 34.6 % (42.0-54.0); HEMOGLOBIN 10.3 g/dL (13.5-17.5); IMMATURE GRANULOCYTES 0.4 % (0-5); LYMPHOCYTES 10.9 % (15-50); MCH 20.9 pg (26.0-34.0); MCHC 29.8 g/dL (31.0-37.0); MEAN PLATELET VOLUME 9.1 fL (7.4-10.4); MONOCYTES 9.3 % (2-11); NEUTROPHILS 74.1 % (40-80); PLATELET COUNT 240 10x3/uL (130-400); RBC 4.94 10x6/uL (4.20-6.10); RDW 17.7 % (11.5-14.5); WBC 8.1 10x3/uL (4.8-10.8)
[2018-04-15 09:34] LABS: ALBUMIN 3.4 g/dL (3.4-5.0); ANION GAP 10.1 mmol/L (8-16); BILIRUBIN - TOTAL 0.49 mg/dL (0.2-1.3); CALCIUM 8.7 mg/dL (8.5-10.1); CARBON DIOXIDE 28.6 mmol/L (21.0-32.0); CREATININE - SERUM 1.4 mg/dL (0.6-1.3); PHOSPHOROUS 3.7 mg/dL (2.5-4.9); POTASSIUM - SERUM 3.7 mmol/L (3.5-5.1); PROTEIN - SERUM 7.3 g/dL (6.4-8.2); T4 THYROXIN - FREE 1.03 ng/dL (0.76-1.46); THYROID STIMULATING HORMONE 3.79 uIU/mL (0.36-3.74); URIC ACID 6.8 mg/dL (2.6-7.2)
[2018-04-15 09:40] LABS: APPEARANCE CLEAR (CLEAR); BILIRUBIN NEGATIVE (NEGATIVE); COLOR YELLOW (YELLOW); GLUCOSE NEGATIVE (NEGATIVE); KETONE NEGATIVE (NEGATIVE); NITRITE NEGATIVE (NEGATIVE); PROTEIN NEGATIVE (NEGATIVE); UROBILINOGEN NORMAL (NORMAL)
[2018-04-15 10:06] LABS: APTT 30.3 SECONDS (22.8-39.4); INR 1.02 (0.85-1.17)
[2018-04-16] VITALS (43 sets, daily range): BP systolic 113–163; BP diastolic 5–75; BMI 31.9
[2018-04-16 13:00] LABS: HEMATOCRIT 31.7 % (42.0-54.0); HEMOGLOBIN 9.7 g/dL (13.5-17.5); MCH 22.7 pg (26.0-34.0); MCHC 30.6 g/dL (31.0-37.0); MCV 74.1 fL (80.0-100.0); MEAN PLATELET VOLUME 9.2 fL (7.4-10.4); RBC 4.28 10x6/uL (4.20-6.10); RDW 20.6 % (11.5-14.5)
[2018-04-16 13:12] LABS: ANION GAP 13.6 mmol/L (8-16); CALCIUM 7.4 mg/dL (8.5-10.1); CARBON DIOXIDE 24.3 mmol/L (21.0-32.0); CREATININE - SERUM 1.4 mg/dL (0.6-1.3); POTASSIUM - SERUM 3.9 mmol/L (3.5-5.1)
[2018-04-16 13:18] LABS: APTT 36.9 SECONDS (22.8-39.4); INR 1.62 (0.85-1.17); PROTIME 18.7 SECONDS (11.6-15.0)
[2018-04-17] VITALS (55 sets, daily range): BP systolic 118–149; BP diastolic 48–70; Ht 175.3 cm; Wt 94.5 kg
[2018-04-17 06:19] LABS: HEMATOCRIT 28.5 % (42.0-54.0); HEMOGLOBIN 8.6 g/dL (13.5-17.5); MCH 22.1 pg (26.0-34.0); MCHC 30.2 g/dL (31.0-37.0); MCV 73.3 fL (80.0-100.0); MEAN PLATELET VOLUME 9.6 fL (7.4-10.4); RBC 3.89 10x6/uL (4.20-6.10); RDW 19.8 % (11.5-14.5); WBC 15.9 10x3/uL (4.8-10.8)
[2018-04-17 07:01] LABS: ANION GAP 12.4 mmol/L (8-16); BILIRUBIN - TOTAL 1.05 mg/dL (0.2-1.3); CALCIUM 7.7 mg/dL (8.5-10.1); CARBON DIOXIDE 26.4 mmol/L (21.0-32.0); POTASSIUM - SERUM 3.8 mmol/L (3.5-5.1)
[2018-04-17 07:04] LABS: ALBUMIN 2.5 g/dL (3.4-5.0); CREATININE - SERUM 1.9 mg/dL (0.6-1.3); PROTEIN - SERUM 5.3 g/dL (6.4-8.2)
[2018-04-17 07:37] LABS: INR 1.35 (0.85-1.17); PROTIME 16.2 SECONDS (11.6-15.0)
[2018-04-18] VITALS (24 sets, daily range): BP systolic 134–174; BP diastolic 52–70
[2018-04-18 06:16] LABS: HEMATOCRIT 29.2 % (42.0-54.0); HEMOGLOBIN 8.9 g/dL (13.5-17.5); MCH 22.4 pg (26.0-34.0); MCHC 30.5 g/dL (31.0-37.0); MCV 73.4 fL (80.0-100.0); MEAN PLATELET VOLUME 9.5 fL (7.4-10.4); RBC 3.98 10x6/uL (4.20-6.10); RDW 20.4 % (11.5-14.5); WBC 19.5 10x3/uL (4.8-10.8)
[2018-04-18 06:38] LABS: ALBUMIN 2.5 g/dL (3.4-5.0); BILIRUBIN - TOTAL 0.81 mg/dL (0.2-1.3); CALCIUM 7.9 mg/dL (8.5-10.1); CREATININE - SERUM 1.5 mg/dL (0.6-1.3); PROTEIN - SERUM 5.7 g/dL (6.4-8.2)
[2018-04-18 12:31] LABS: APPEARANCE CLEAR (CLEAR); BILIRUBIN NEGATIVE (NEGATIVE); COLOR YELLOW (YELLOW); GLUCOSE NEGATIVE (NEGATIVE); KETONE NEGATIVE (NEGATIVE); NITRITE NEGATIVE (NEGATIVE); PROTEIN 1+ mg/dL (NEGATIVE); UROBILINOGEN NORMAL (NORMAL)
[2018-04-18 12:32] LABS: BACTERIA FEW /hpf (NONE SEEN); EPITHELIAL CELLS 0-5 /hpf (0-5); RED CELLS - URINE 0-5 /hpf (0-5); WHITE CELLS - URINE 0-5 /hpf (0-5)
[2018-04-19] VITALS (23 sets, daily range): BP systolic 125–159; BP diastolic 48–65
[2018-04-19 05:54] LABS: HEMATOCRIT 28.3 % (42.0-54.0); HEMOGLOBIN 8.7 g/dL (13.5-17.5); MCH 22.7 pg (26.0-34.0); MCHC 30.7 g/dL (31.0-37.0); MCV 73.9 fL (80.0-100.0); MEAN PLATELET VOLUME 10.1 fL (7.4-10.4); RBC 3.83 10x6/uL (4.20-6.10); RDW 21.3 % (11.5-14.5); WBC 17.3 10x3/uL (4.8-10.8)
[2018-04-19 06:28] LABS: ALBUMIN 2.3 g/dL (3.4-5.0); ANION GAP 12.2 mmol/L (8-16); BILIRUBIN - TOTAL 0.95 mg/dL (0.2-1.3); CALCIUM 7.8 mg/dL (8.5-10.1); CARBON DIOXIDE 27.1 mmol/L (21.0-32.0); CREATININE - SERUM 1.4 mg/dL (0.6-1.3); POTASSIUM - SERUM 3.3 mmol/L (3.5-5.1); PROTEIN - SERUM 5.8 g/dL (6.4-8.2)
[2018-04-20] VITALS (23 sets, daily range): BP systolic 125–155; BP diastolic 42–92
[2018-04-20 06:35] LABS: HEMATOCRIT 28.4 % (42.0-54.0); HEMOGLOBIN 8.5 g/dL (13.5-17.5); MCH 22.4 pg (26.0-34.0); MCHC 29.9 g/dL (31.0-37.0); MCV 74.9 fL (80.0-100.0); MEAN PLATELET VOLUME 10.3 fL (7.4-10.4); RBC 3.79 10x6/uL (4.20-6.10); RDW 21.7 % (11.5-14.5)
[2018-04-20 06:39] LABS: WBC 12.3 10x3/uL (4.8-10.8)
[2018-04-20 07:22] LABS: ALBUMIN 2.1 g/dL (3.4-5.0); ANION GAP 10.5 mmol/L (8-16); BILIRUBIN - TOTAL 0.83 mg/dL (0.2-1.3); CALCIUM 7.9 mg/dL (8.5-10.1); CARBON DIOXIDE 28.6 mmol/L (21.0-32.0); CREATININE - SERUM 1.4 mg/dL (0.6-1.3); POTASSIUM - SERUM 3.1 mmol/L (3.5-5.1); PROTEIN - SERUM 5.7 g/dL (6.4-8.2)
[2018-04-21] VITALS (24 sets, daily range): BP systolic 130–155; BP diastolic 40–66
[2018-04-21 06:31] LABS: HEMATOCRIT 30.8 % (42.0-54.0); HEMOGLOBIN 9.1 g/dL (13.5-17.5); MCH 22.3 pg (26.0-34.0); MCHC 29.5 g/dL (31.0-37.0); MCV 75.5 fL (80.0-100.0); MEAN PLATELET VOLUME 10.4 fL (7.4-10.4); RBC 4.08 10x6/uL (4.20-6.10); RDW 22.3 % (11.5-14.5)
[2018-04-21 06:57] LABS: ALBUMIN 2.1 g/dL (3.4-5.0); ANION GAP 11.6 mmol/L (8-16); BILIRUBIN - TOTAL 0.85 mg/dL (0.2-1.3); CALCIUM 8.1 mg/dL (8.5-10.1); CARBON DIOXIDE 28.8 mmol/L (21.0-32.0); CREATININE - SERUM 1.3 mg/dL (0.6-1.3); POTASSIUM - SERUM 3.4 mmol/L (3.5-5.1); PROTEIN - SERUM 5.9 g/dL (6.4-8.2)
[2018-04-22] VITALS (24 sets, daily range): BP systolic 107–159; BP diastolic 41–67
[2018-04-22 08:31] LABS: BASOPHILS 0.2 % (0-2); EOSINOPHILS 1.7 % (0-7); HEMATOCRIT 32.1 % (42.0-54.0); HEMOGLOBIN 9.6 g/dL (13.5-17.5); IMMATURE GRANULOCYTES 0.7 % (0-5); LYMPHOCYTES 4.7 % (15-50); MCH 22.6 pg (26.0-34.0); MCHC 29.9 g/dL (31.0-37.0); MCV 75.7 fL (80.0-100.0); MEAN PLATELET VOLUME 9.9 fL (7.4-10.4); MONOCYTES 8.5 % (2-11); NEUTROPHILS 84.2 % (40-80); PLATELET COUNT 204 10x3/uL (130-400); RBC 4.24 10x6/uL (4.20-6.10); RDW 22.5 % (11.5-14.5); WBC 11.2 10x3/uL (4.8-10.8)
[2018-04-23] VITALS (16 sets, daily range): BP systolic 122–157; BP diastolic 36–59
[2018-04-23 06:24] LABS: HEMATOCRIT 30.7 % (42.0-54.0); HEMOGLOBIN 9.1 g/dL (13.5-17.5); MCH 22.4 pg (26.0-34.0); MCHC 29.6 g/dL (31.0-37.0); MCV 75.6 fL (80.0-100.0); MEAN PLATELET VOLUME 10.1 fL (7.4-10.4); RBC 4.06 10x6/uL (4.20-6.10); RDW 22.5 % (11.5-14.5)
[2018-04-23 06:27] LABS: WBC 14.1 10x3/uL (4.8-10.8)
[2018-04-23 06:43] LABS: ANION GAP 12.2 mmol/L (8-16); CALCIUM 8.1 mg/dL (8.5-10.1); CARBON DIOXIDE 28.6 mmol/L (21.0-32.0); CREATININE - SERUM 1.2 mg/dL (0.6-1.3); POTASSIUM - SERUM 3.8 mmol/L (3.5-5.1)
[2018-04-23] MEDS ORDERED: HEMOCYTE PLUS C1 CAP PO (14:10)
[2018-04-23] MEDS ORDERED: CORDARONE200 MG PO (14:11)
[2018-04-23] MEDS ORDERED: NORVASC5 MG PO (14:11)
[2018-04-23] MEDS ORDERED: TENORMIN50 MG PO (14:15)
[2018-04-23] MEDS ORDERED: LOTENSIN5 MG PO (14:15)
[2018-04-23] MEDS ORDERED: K-DUR20 MEQ PO (14:24)
[2018-04-23] MEDS ORDERED: COLACE100 MG PO (14:26)
[2018-04-23] MEDS ORDERED: PERCOCET 5-3251 TAB PO (14:31)
== END 2018-04-23 17:03 | disposition home or self-care (01) | DRG 221 ==
LOC: D.SDCHOLD 08:00 → D.CVICU 04-16 05:26 → D.SDCHOLD 04-16 05:26 → D.CVICU 04-16 11:24
PROVIDERS: Family Medicine; Internal Medicine Cardiovascular Disease; Thoracic Surgery (Cardiothoracic Vascular Surgery)
PROC: B24BZZ4 Ultrasonography of Heart with Aorta, Transesophageal (ICD-10-PCS; 2018-04-16)
PROC: 5A1221Z Performance of Cardiac Output, Continuous (ICD-10-PCS; 2018-04-16)
PROC: 02RF0KZ Replacement of Aortic Valve with Nonautologous Tissue Substitute, Open Approach (ICD-10-PCS; principal; 2018-04-16 07:30)
PROC: 02100Z9 Bypass Coronary Artery, One Artery from Left Internal Mammary, Open Approach (ICD-10-PCS; 2018-04-16 07:30)
DX: I25.10 Atherosclerotic heart disease of native coronary artery without angina pectoris (principal); E11.9 Type 2 diabetes mellitus without complications; I10 Essential (primary) hypertension; I35.0 Nonrheumatic aortic (valve) stenosis; R09.02 Hypoxemia; R06.82 Tachypnea, not elsewhere classified; R50.82 Postprocedural fever; R41.0 Disorientation, unspecified

== ENCOUNTER → 2018-05-04 11:23 | Outpatient (CLI) | payer MEDICARE, BC ==
[2018-04-17 08:22] VITALS: BMI 32.7
[~2018-05-04 11:23] MED LIST changes: +AUGMENTIN 875-11 TAB PO; +COLACE100 MG PO; +CORDARONE200 MG PO; +COUMADIN5 MG PO; +FUROSEMIDE40 MG PO; +HEMOCYTE PLUS C1 CAP PO; +K-DUR20 MEQ PO; +LASIX40 MG PO; +LOTENSIN5 MG PO; +NORVASC5 MG PO; +PACERONE200 MG PO; +PERCOCET 5-3251 TAB PO; +TENORMIN50 MG PO; +TESSALON PERLE100 MG PO
[2018-05-04 12:14] LABS: HEMATOCRIT 32.4 % (42.0-54.0); HEMOGLOBIN 9.5 g/dL (13.5-17.5); MCH 22.2 pg (26.0-34.0); MCHC 29.3 g/dL (31.0-37.0); MCV 75.9 fL (80.0-100.0); MEAN PLATELET VOLUME 9.2 fL (7.4-10.4); RBC 4.27 10x6/uL (4.20-6.10); RDW 20.9 % (11.5-14.5); WBC 9.7 10x3/uL (4.8-10.8)
[2018-05-04 12:29] LABS: ALBUMIN 2.7 g/dL (3.4-5.0); ANION GAP 8.3 mmol/L (8-16); BILIRUBIN - TOTAL 1.08 mg/dL (0.2-1.3); CALCIUM 8.4 mg/dL (8.5-10.1); CARBON DIOXIDE 28.8 mmol/L (21.0-32.0); CREATININE - SERUM 1.5 mg/dL (0.6-1.3); POTASSIUM - SERUM 4.1 mmol/L (3.5-5.1); PROTEIN - SERUM 5.6 g/dL (6.4-8.2)
== END | disposition home or self-care (01) ==
LOC: D.LAB 11:23
PROVIDERS: Thoracic Surgery (Cardiothoracic Vascular Surgery)
DX: J91.8 Pleural effusion in other conditions classified elsewhere (principal); D64.9 Anemia, unspecified

== ENCOUNTER 2018-05-07 04:49 | Inpatient (IN) | payer MEDICARE, BC ==
[~2018-05-07] VITALS: Ht 175.3 cm; Wt 92.8 kg
[2018-05-07] VITALS (23 sets, daily range): BP systolic 102–141; BP diastolic 36–89; BMI 28.5
--- NOTE | ~2018-05-07 | HEMODYNAMI ---
PATIENT:WILEY KOWALSKI MEDICAL RECORD: [id number] : 38 LOCATION:[facility] D.231 ADMISSION DATE: 05/07/18 Generatedon:05/08/201811:34 Patient name: WILEY KOWALSKI Patient #: [id number] SSN: : 1940 Date of study: 05/08/2018 Page: Of Hemodynamic Procedure Report Patient Data Patient Demographics Procedure consent was obtained First Name: WILEY Gender: Male Last Name: DEX : 1940 [facility] Initial: FRANK Age: 77 year(s) Patient #: [id number] Race: Unknown Additional ID: [id number] Contact details Address: [address] [place] [address] State: [place] City: [facility] Zip code: [address] Past Medical History Allergies Allergen Reaction Date Comments Reported Other allergy 03/26/2018 FLOMAX,TERAZOSIN Admission Admission Data Admission Date: 05/07/2018 Admission Time: 6:13 Room #: D.2311 Height (in.): 69 BSA: 2.08 (m2) Height (cm.): 175.26 BMI: 29.98 (kg/m2) Weight (lbs.): 203 Weight (kg.): 92.08 Procedure Procedure Types Cath Procedure Peripheral Cath Diagnostic Procedure Cath Peripheral Abd/Extremity Visceral/Mesenteric Mesenteric Arteriogram (Abd Artery) Procedure Description Procedure Date Procedure Date: 05/08/2018 Procedure Start Time: 10:45 Procedure Staff Name Function Dragan Silvestre RT Brewery Worker Faiza Ha RT Brewery Worker Melissa Collado RN Nurse Angélica Joya RT Scrub Farooq Martinez MD Performing Physician Procedure Data Cath Procedure Fluoroscopy Diagnostic fluoroscopy Total fluoroscopy Time: 7 time: 7 min min Diagnostic fluoroscopy Total fluoroscopy dose: dose: 1038 mGy 1038 mGy Contrast Material Contrast Material Type Amount (ml) Isovue 300 80 Entry Location Entry Primary Successful Side Size Upsize Upsize Entry Closure Succes sful Closure Location (Fr) 1 (Fr) 2 (Fr) Remarks Device Remarks Femoral Right 5 Fr artery Diagnostic catheters Device Type Used For End Catheter Placement LSAT Freedom CHG-B 5FR 65CM catheter ([id number]) Procedure Medications Medication Administration Route Dosage Heparin Flush Bag added to field 3 bags (1000units/500ml NS) Lidocaine 1% added to field 20 Oxygen etCO2 Nasal cannula 3 l/min Fentanyl I.V. 50 mcg Versed I.V. 1 mg Hemodynamics Rest BSA: 2.08 (m2) O2 Consumption: Estimated: 239.8 (ml/min) O2 Consumption indexed: Estimated:115.29 (ml/min/m) Heart Rate: 72 (bpm) Snapshots Pre Cath Intra NCS Post Cath Vital Signs Time Heart Resp SPO2 etCO2 NIBP (mmHg) Rhythm Pain Sedation Rate (ipm) (%) (mmHg) Status Level (bpm) 10:03:21 21 20.3 145/56(108) NSR 0 (11) 10(A) , No pain 10:07:51 74 13 16.5 151/59(63) NSR 0 (11) 10(A) , No pain 10:12:14 80 12 97 18.1 151/59(106) NSR 0 (11) 10(A) , No pain 10:16:40 70 20 97 23.3 146/60(104) NSR 0 (11) 10(A) , No pain 10:21:06 70 24 97 19.5 146/56(109) NSR 0 (11) 10(A) , No pain 10:25:32 71 19 97 16.5 142/56(106) NSR 0 (11) 10(A) , No pain 10:29:56 72 22 98 26.3 143/58(111) NSR 0 (11) 10(A) , No pain 10:34:21 73 19 98 23.3 146/57(106) NSR 0 (11) 10(A) , No pain 10:38:43 74 49 97 13.5 143/59(105) NSR 0 (11) 10(A) , No pain 10:43:07 74 37 98 11.3 150/59(115) NSR 0 (11) 10(A) , No pain 10:47:29 74 29 97 10.5 135/59(102) NSR 0 (11) 10(A) , No pain 10:51:51 72 15 97 20.3 130/51(99) NSR 0 (11) 10(A) , No pain 10:56:12 75 15 98 0 132/52(100) NSR 0 (11) 10(A) , No pain 11:00:34 74 22 97 12 131/53(91) NSR 0 (11) 10(A) , No pain 11:04:54 74 27 97 15 127/56(98) NSR 0 (11) 10(A) , No pain 11:09:14 74 19 98 16.5 137/55(101) NSR 0 (11) 10(A) , No pain 11:13:36 73 18 98 15.8 133/55(96) NSR 0 (11) 10(A) , No pain 11:17:56 74 22 97 20.3 136/58(105) NSR 0 (11) 10(A) , No pain 11:22:19 74 26 97 27.8 143/62(108) NSR 0 (11) 10(A) , No pain 11:26:45 74 20 96 28.6 141/55(107) NSR 0 (11) 10(A) , No pain 11:31:05 72 20 97 21 142/61(102) NSR 0 (11) 10(A) , No pain Medications Time Medication Route Dose Verified Delivered Reason Notes Effe ctiveness by by 10:17:37 Heparin Flush added 3 Farooq Trivedi used for Bag to bags Martinez Martinez procedure (1000units/500ml field MD [place] NS) 10:17:53 Lidocaine 1% added 20ml Farooq Trivedi used for to vial Martinez Martinez procedure field MD LIND[place] 10:21:57 Oxygen etCO2 3 Farooq Torres used for Nasal l/min Martinezkenny Collado district service manager cannula 10:42:26 Fentanyl I.V. 50 Farooq Torres for mcg Martinez Tobias PALMA sedation 10:42:42 Versed I.V. 1 mg Farooq Torres for Martinez Tobias PALMA sedation Procedure Log Time Note 9:04:26 Patient Height : 69 inches 9:04:29 Patient Weight : 203 lbs 9:05:04 Use device set IR Diagnostic 9:58:27 Melissa Collado RN sent for patient. Start room use. 9:58:34 Time tracking: Regular hours (M-F 7:00 - 5:00) 9:58:39 Plan of Care:Hemodynamics will remain stable., Cardiac rhythm will remain stable., Comfort level will be maintained., Respiratory function will remain adequate., Patient/ family verbilizes understanding of procedure., Procedure tolerated without complication., Recovers from procedure without complications.. 9:58:49 Patient received from ICU to IR Alert and oriented. Tansferred to table in Supine position. 9:58:53 Correct patient and procedure confirmed by team. 9:58:55 Signed procedure consent form obtained from patient. 9:58:56 ECG and BP/O2 sat monitors applied to patient. 9:58:57 Full Disclosure recording started 9:58:58 - 9:58:58 - 9:59:01 H&P Date Dictated: 05/08/2018 Within 30 days and on chart.. 9:59:02 Pre-procedure instructions explained to patient. 9:59:02 Pre-op teaching completed and patient verbalized understanding. 9:59:10 Family unavailable. 9:59:12 Patient NPO since Midnight. 9:59:24 Is the patient allergic to Iodine/contrast media? No. 9:59:26 Is patient on blood thinner?No 9:59:28 Patient diabetic? Yes. 9:59:30 If diabetic: On Metformin? Yes 9:59:37 If on Metformin: Last Dose? 05/06/2018 9:59:38 - 9:59:39 ----Pre-sedation anethsthesia assessment.---- 9:59:43 Previous problem with sedation/anesthesia? No ? 9:59:49 Snore? Yes 9:59:50 Sleep apnea? No 9:59:52 Deviated septum? No 9:59:53 Opens mouth fully? Yes 9:59:55 Sticks out tongue? Yes 9:59:57 Airway obstruction? No ? 10:00:01 Dentures? No ? 10:00:06 Sharps counted by scrub and verified by RSesarN. 10:00:06 Alarms reviewed by Nickolas Rodriguez. 10:00:10 Right groin area was prepped with chlora-prep and draped in sterile fashion 10:00:27 IV patent on arrival in right antecubital with 0.9% NaCl at [facility]. 10:01:56 Pre procedure: right dorsailis pedis pulse Doppler 10:02:00 Pre procedure: right posterior tibial pulse Doppler 10:02:04 Vital chart was started 10::53 Baseline sample Acquired. 10:17:37 Heparin Flush Bag (1000units/500ml NS) 3 bags added to field was administered by Farooq Martinez MD; used for procedure; ::53 Lidocaine 1% 20ml vial added to field was administered by Farooq Martinez MD; used for procedure; 10::57 Oxygen 3 l/min etCO2 Nasal cannula was administered by Melissa Collado RN ; used for procedure; :: Fentanyl 50 mcg I.V. was administered by Melissa Collado RN; for sedation ; :42: Physician arrived 10::27 --------ALL STOP TIME OUT------ :: Final Timeout: patient, procedure, and site verified with staff and physician. All members of the team are in agreement. 10:42:33 Right groin site verified by team. 10:42:37 Sedation plan: IV Moderate Sedation Medication:Versed, Fentanyl 10::42 Versed 1 mg I.V. was administered by Melissa Collado RN; for sedation; 10:42:51 ACIST Syringe (98708) opened to sterile field. 10:42:51 ACIST Hand Control (35152) opened to sterile field. 10:42:52 ACIST Manifold (43741) opened to sterile field. 10:42:52 Bag Decanter (2002S) opened to sterile field. 10:42:52 Sterile Angiographic Pack opened to sterile field. 10:42:53 Tegaderm 4 x 4 (1626W) opened to sterile field. 10:42:54 TUBING Contrast Injection High Pressure (WPZ724X) opened to sterile field. 10:45:08 Procedure started. 10:45:13 Local anesthetic to right femoral artery with Lidocaine 1% by Farooq Martinez MD.INITIAL ACCESS ONLY 10:45:17 TRANSEND STEERABLE wire ([id number]) opened to sterile field. 10:45:19 SHEATH 5FR [place] (SML960) opened to sterile field. 10:45:23 PERCUTANEOUS ENTRY 19GA needle opened to sterile field. 10:45:26 A LSAT Freedom CHG-B 5FR 65CM catheter (V52776) was advanced over the wire and used for . 10:45:28 DOC .035 wire (W93610) opened to sterile field. 10:45:45 A 5 Fr sheath was inserted into the Right Femoral artery 10:48:15 TORQUE DEVICE PLASTIC .038 ( TD01) opened to sterile field. 10:48:56 GLIDE WIRE .038 180cm ANGLED (DG6819) opened to sterile field. 10:49:37 GLIDE CATHETER 5FR COBRA 65cm (CG502) opened to sterile field. 10:54:18 RENEGADE HI-FAREED microcatheter ([id number]) opened to sterile field. 11:04:26 COIL Micronester 4mm (E30915) opened to sterile field. 11:06:12 COIL Micronester 4mm (N80624) opened to sterile field. 11:07:28 COIL Micronester 4mm (H71422) opened to sterile field. 11:08:30 COIL Micronester 4mm (O53017) opened to sterile field. 11:09:49 COIL Micronester 4mm (Z44383) opened to sterile field. 11:10:25 COIL Micronester 4mm (V67458) opened to sterile field. 11:15:52 COIL Micronester 4mm (I36932) opened to sterile field. 11:19:27 EXOSEAL 5Fr (EX500) opened to sterile field. 11:19:37 Procedure ended.(Physican Out) 11:23:45 Fluoroscopy time 07.00 minutes. 11:23:50 Fluoroscopy dose: 1038 mGy 11:23:50 Flurop Dose total: 1038 11:23:56 Sharps counted by scrub and verified by R.N. 11:23:57 Insertion/operative site no bleeding no hematoma. 11:24:01 Post-op/insertion site Right Femoral artery dressed using a 4 x 4 and Tegaderm. 11:24:04 Post right femoral artery:stable 11:24:09 Post Procedure Pulses reassessed and unchanged 11:24:11 Post procedure instruction explained to patient.Patient verbalizes understanding. 11:24:12 Procedure and supply charges have been captured, reviewed, submitted an d are correct. 11:29:05 Contrast amount:Isovue 300 80ml. 11:34:28 Report given to ICU. 11:34:33 Patient transfered to ICU with Bed. 11:34:54 Vital chart was stopped Device Usage Item Name Manufacture Quantity Catalog Hospital Part Current Minima l Lot# / Number Charge Number Stock Stock Serial# Code ACIST Syringe Acist 1 54613 331778 655039 042482 20 (89726) Medical Systems Inc ACIST Hand Acist 1 92088 029667 537060 392759 5 Control Medical (48884) Systems Inc ACIST Acist 1 78088 846558 271663 743358 5 Manifold Medical (61533) Systems Inc Bag Decanter Microtek 1 2001S 874020 02717 496547 5 (2001S) Medical Inc. Sterile Cardinal 1 [id number] 933238 598428 5 Angiographic Health Pack Tegaderm 4 x 3M 1 1626W 153915 287353 924524 5 4 (1626W) TUBING Merit 1 [id number] 694318 221728 580776 5 Contrast Medical Injection High Pressure (DJX563F) TRANSEND [place] 1 [id number] 134051 582218 5 [id number] STEERABLE Scientific wire ([id number]) SHEATH 5FR Terumo 1 KDN979 151209 581814 164002 40 [place] (RMS101) PERCUTANEOUS Cook Medical 1 Q23804 504810 687182 5 2287698 ENTRY 19GA needle Cook CHG-B Cook Medical 1 J20857 911225 815564 918193 5 5FR 65CM catheter (L10767) DOC .035 wire Cook Medical 1 H27174 808934 669819 5 (Y52640) TORQUE DEVICE [place] 1 TD01 270524 049825 195378 5 PLASTIC .038 Scientific ( TD01) GLIDE WIRE Terumo 1 OF5667 280849 325328 5 .038 180cm ANGLED (CM6658) GLIDE Terumo 1 CG502 643256 204587 5 CATHETER 5FR COBRA 65cm (CG502) RENEGADE [place] 1 [id number] 004067 188284 5 [id number] HI-FAREED Scientific microcatheter ([id number]) COIL Cook [facility] 7 H64910 203056 729118 1 [id number] Micronester 4024030 4mm (P40795) 1312236 9337116 3802155 2967865 8545776 EXOSEAL 5Fr Cardinal 1 EX500 625863 726097 895255 10 5642579 (EX500) Health Signature Audit [place] Stage Time Signature Unsigned Intra-Procedure 05/08/2018 Dragan 11:34:49 AM [place] RT (R) (CV) [place] [address] [place] [address]
--- NOTE | ~2018-05-07 | MORECARE ---
CASE MANAGEMENT DISCHARGE SUMMARY PATIENT: WILEY KOWALSKI UNIT: [id number] ADM DATE: 05/07/18 AGE: 77 : 39 SEX: M ROOM/BED: D.2311 AUTHOR: CASE, STORE KEEPER PHYSICIAN: REFERRING PHYSICIAN: KAITLIN LINTON DO DATE OF SERVICE: 05/07/18 Discharge Plan Patient Name: WILEY KOWALSKI [facility] [facility] 1940 Planned Disposition: Home Anticipated Discharge Date: Discharge Date: Expected LOS: Initial Reviewer: [email or web address] Initial Review Date: 05/11/2018 Generated: 05/11/18 11:51 am DCPIA - Discharge Planning Initial Assessment Updated by [email or web address]: Meche Momin on 05/11/18 10:49 am * Is the patient Alert and Oriented? Yes * How many steps to enterexit or inside your home? * PCP Dr. Linton * Pharmacy [facility] * Preadmission Environment Home with Family * ADLs Independent * Equipment Walker * List name and contact numbers for known caregivers / representatives who currently or will assist patient after discharge: TIFFANIE KENT [phone] * Verbal permission to speak to the caregivers and representatives has been obtained from the patient. Yes * Community resources currently utilized None * Additional services required to return to the preadmission environment? No * Can the patient safely return to the preadmission environment? Yes * Has this patient been hospitalized within the prior 30 days at any hospital? Yes Patient Name: WILEY KOWALSKI Page [phone] All edits/amendments must be made on the electronic document DICTATION DATE: 05/11/18 1051 [place]ION[place] COORDINATOR: 05/11/18 1051 RPT#: [id number] DC DATE: STATUS: ADM IN [facility] [address] [place] [address] END OF REPORT
[~2018-05-07 04:49] MED LIST changes: -AUGMENTIN 875-11 TAB PO; -COUMADIN5 MG PO; -FUROSEMIDE40 MG PO; -LASIX40 MG PO; -PACERONE200 MG PO; -TESSALON PERLE100 MG PO
[2018-05-07] MEDS ORDERED: TENORMIN100 MG PO (04:56)
[2018-05-07 05:27] LABS: BASOPHILS 0.2 % (0-2); EOSINOPHILS 1.2 % (0-7); HEMATOCRIT 20.5 % (42.0-54.0); IMMATURE GRANULOCYTES 0.6 % (0-5); LYMPHOCYTES 6.6 % (15-50); MCH 21.9 pg (26.0-34.0); MCHC 28.8 g/dL (31.0-37.0); MCV 76.2 fL (80.0-100.0); MEAN PLATELET VOLUME 9.2 fL (7.4-10.4); MONOCYTES 6.9 % (2-11); NEUTROPHILS 84.5 % (40-80); RBC 2.69 10x6/uL (4.20-6.10); RDW 21.1 % (11.5-14.5); WBC 12.1 10x3/uL (4.8-10.8)
[2018-05-07 05:34] LABS: HEMOGLOBIN 6.1 g/dL (13.5-17.5); PLATELET COUNT 303 10x3/uL (130-400)
[2018-05-07 05:37] LABS: APTT 24.6 SECONDS (22.8-39.4); INR 1.5 (0.85-1.17); PROTIME 17.6 SECONDS (11.6-15.0)
[2018-05-07 05:44] LABS: ALBUMIN 1.9 g/dL (3.4-5.0); ANION GAP 11.6 mmol/L (8-16); BILIRUBIN - TOTAL 0.58 mg/dL (0.2-1.3); CALCIUM 7.4 mg/dL (8.5-10.1); CARBON DIOXIDE 25.7 mmol/L (21.0-32.0); CREATININE - SERUM 1.7 mg/dL (0.6-1.3); POTASSIUM - SERUM 4.3 mmol/L (3.5-5.1); PROTEIN - SERUM 4.1 g/dL (6.4-8.2)
[2018-05-07] MEDS ORDERED: PACERONE200 MG PO (10:23)
[2018-05-07] MEDS ORDERED: NORVASC5 MG PO (10:24)
[2018-05-07 12:56] LABS: BASOPHILS 0.4 % (0-2); EOSINOPHILS 0.2 % (0-7); IMMATURE GRANULOCYTES 0.6 % (0-5); LYMPHOCYTES 7.6 % (15-50); MCH 24.8 pg (26.0-34.0); MCHC 31.3 g/dL (31.0-37.0); MEAN PLATELET VOLUME 9.2 fL (7.4-10.4); MONOCYTES 6.8 % (2-11); NEUTROPHILS 84.4 % (40-80); PLATELET COUNT 255 10x3/uL (130-400); RDW 18.9 % (11.5-14.5); WBC 13.9 10x3/uL (4.8-10.8)
[2018-05-07 13:12] LABS: HEMATOCRIT 27.5 % (42.0-54.0); HEMOGLOBIN 8.6 g/dL (13.5-17.5); MCV 79.3 fL (80.0-100.0); RBC 3.47 10x6/uL (4.20-6.10)
[2018-05-07 13:58] LABS: % SATURATION 8 % (15-55); IRON 15 ug/dl (35-150); TOTAL IRON BIND CAPACITY 173 ug/dl (260-445); UNSAT IRON BIND CAPACITY 158 ug/dl (150-375)
[2018-05-07 19:06] LABS: BASOPHILS 0.2 % (0-2); EOSINOPHILS 0.5 % (0-7); IMMATURE GRANULOCYTES 0.5 % (0-5); LYMPHOCYTES 9.9 % (15-50); MCV 78.2 fL (80.0-100.0); MEAN PLATELET VOLUME 9.2 fL (7.4-10.4); MONOCYTES 7.3 % (2-11); NEUTROPHILS 81.6 % (40-80); PLATELET COUNT 222 10x3/uL (130-400); RDW 18.9 % (11.5-14.5)
[2018-05-07 19:11] LABS: RBC 2.52 10x6/uL (4.20-6.10)
[2018-05-07 19:14] LABS: HEMATOCRIT 19.7 % (42.0-54.0); HEMOGLOBIN 6.3 g/dL (13.5-17.5)
[2018-05-08] VITALS (25 sets, daily range): BP systolic 102–157; BP diastolic 42–61; Ht 175.3 cm; Wt 92.8 kg
[2018-05-08 03:57] LABS: INR 1.44 (0.85-1.17); PROTIME 17.1 SECONDS (11.6-15.0)
[2018-05-08 04:15] LABS: ALBUMIN 1.5 g/dL (3.4-5.0); BILIRUBIN - TOTAL 0.98 mg/dL (0.2-1.3); CARBON DIOXIDE 25.7 mmol/L (21.0-32.0); CREATININE - SERUM 1.7 mg/dL (0.6-1.3); PROTEIN - SERUM 3.5 g/dL (6.4-8.2)
[2018-05-08 04:16] LABS: ANION GAP 10.3 mmol/L (8-16)
[2018-05-08 04:17] LABS: CALCIUM 6.9 mg/dL (8.5-10.1)
[2018-05-08 05:29] LABS: BASOPHILS 0.3 % (0-2); EOSINOPHILS 0.6 % (0-7); HEMATOCRIT 21.1 % (42.0-54.0); IMMATURE GRANULOCYTES 2.2 % (0-5); LYMPHOCYTES 8.4 % (15-50); MCH 26.9 pg (26.0-34.0); MCHC 33.2 g/dL (31.0-37.0); MONOCYTES 7.3 % (2-11); NEUTROPHILS 81.2 % (40-80); RDW 17.6 % (11.5-14.5)
[2018-05-08 05:30] LABS: MCV 81.2 fL (80.0-100.0); PLATELET COUNT 164 10x3/uL (130-400); WBC 13.8 10x3/uL (4.8-10.8)
[2018-05-08 19:19] LABS: HEMATOCRIT 26.8 % (42.0-54.0)
[2018-05-09] VITALS (20 sets, daily range): BP systolic 143–173; BP diastolic 53–80
[2018-05-09 04:39] LABS: BASOPHILS 0.1 % (0-2); EOSINOPHILS 1.5 % (0-7); HEMATOCRIT 26.6 % (42.0-54.0); HEMOGLOBIN 8.8 g/dL (13.5-17.5); IMMATURE GRANULOCYTES 0.3 % (0-5); LYMPHOCYTES 3.2 % (15-50); MCH 28.1 pg (26.0-34.0); MCHC 33.1 g/dL (31.0-37.0); MEAN PLATELET VOLUME 9.3 fL (7.4-10.4); MONOCYTES 7.5 % (2-11); NEUTROPHILS 87.4 % (40-80); PLATELET COUNT 144 10x3/uL (130-400); RDW 16.3 % (11.5-14.5); WBC 17.1 10x3/uL (4.8-10.8)
[2018-05-09 05:02] LABS: RBC 3.13 10x6/uL (4.20-6.10)
[2018-05-09 05:10] LABS: BILIRUBIN - TOTAL 1.42 mg/dL (0.2-1.3); CALCIUM 7.5 mg/dL (8.5-10.1); CARBON DIOXIDE 26.2 mmol/L (21.0-32.0); CREATININE - SERUM 1.4 mg/dL (0.6-1.3)
[2018-05-09 05:18] LABS: POTASSIUM - SERUM 4.2 mmol/L (3.5-5.1); PROTEIN - SERUM 4.4 g/dL (6.4-8.2)
[2018-05-09 11:10] LABS: CEA 2.7 ng/mL (0.0-4.7)
[2018-05-09 12:04] LABS: HEMOGLOBIN 8.1 g/dL (13.5-17.5)
[2018-05-09 21:03] LABS: HEMATOCRIT 24.8 % (42.0-54.0); HEMOGLOBIN 8.1 g/dL (13.5-17.5)
[2018-05-10] VITALS (23 sets, daily range): BP systolic 127–167; BP diastolic 56–84
[2018-05-10 04:33] LABS: BASOPHILS 0.2 % (0-2); HEMATOCRIT 28.3 % (42.0-54.0); HEMOGLOBIN 9.2 g/dL (13.5-17.5); IMMATURE GRANULOCYTES 0.5 % (0-5); MCH 28.8 pg (26.0-34.0); MCHC 32.5 g/dL (31.0-37.0); MEAN PLATELET VOLUME 9.4 fL (7.4-10.4); MONOCYTES 14.6 % (2-11); NEUTROPHILS 71.7 % (40-80); RDW 16.3 % (11.5-14.5)
[2018-05-10 04:35] LABS: MCV 88.4 fL (80.0-100.0); PLATELET COUNT 101 10x3/uL (130-400); WBC 5.8 10x3/uL (4.8-10.8)
[2018-05-10 04:48] LABS: ALBUMIN 1.9 g/dL (3.4-5.0); ALKALINE PHOSPHATASE 74 U/L (46-116); ALT (SGPT) 15 U/L (10-68); CALCIUM 7.4 mg/dL (8.5-10.1); CARBON DIOXIDE 27.9 mmol/L (21.0-32.0); CHLORIDE - SERUM 112 mmol/L (98-107); GLUCOSE 210 mg/dL (74-106); PROTEIN - SERUM 4.3 g/dL (6.4-8.2); SODIUM 144 mmol/L (136-145)
[2018-05-10 04:49] LABS: CALC OSMOLALITY 296 mosm/kg (275-300); POTASSIUM - SERUM 3.5 mmol/L (3.5-5.1); UREA NITROGEN 23 mg/dL (7-18); eGFR NON AFRICAN AMERICAN 77 mL/min (90-120)
[2018-05-10 12:51] LABS: BASOPHILS 0.2 % (0-2); EOSINOPHILS 7.1 % (0-7); HEMATOCRIT 30.6 % (42.0-54.0); HEMOGLOBIN 9.7 g/dL (13.5-17.5); IMMATURE GRANULOCYTES 0.2 % (0-5); LYMPHOCYTES 5.9 % (15-50); MCH 28.5 pg (26.0-34.0); MCHC 31.7 g/dL (31.0-37.0); MEAN PLATELET VOLUME 9.9 fL (7.4-10.4); MONOCYTES 14.6 % (2-11); PLATELET COUNT 106 10x3/uL (130-400); RDW 16.9 % (11.5-14.5); WBC 5.2 10x3/uL (4.8-10.8)
[2018-05-10 13:10] LABS: ALBUMIN 2.1 g/dL (3.4-5.0); ALKALINE PHOSPHATASE 78 U/L (46-116); ALT (SGPT) 16 U/L (10-68); BILIRUBIN - TOTAL 1.11 mg/dL (0.2-1.3); CALC OSMOLALITY 297 mosm/kg (275-300); CALCIUM 7.4 mg/dL (8.5-10.1); CARBON DIOXIDE 27.2 mmol/L (21.0-32.0); CHLORIDE - SERUM 111 mmol/L (98-107); GLUCOSE 218 mg/dL (74-106); POTASSIUM - SERUM 3.3 mmol/L (3.5-5.1); PROTEIN - SERUM 4.7 g/dL (6.4-8.2); SODIUM 145 mmol/L (136-145); UREA NITROGEN 19 mg/dL (7-18); eGFR NON AFRICAN AMERICAN 77 mL/min (90-120)
[2018-05-10 21:17] LABS: BASOPHILS 0.2 % (0-2); EOSINOPHILS 7.8 % (0-7); HEMATOCRIT 27.9 % (42.0-54.0); IMMATURE GRANULOCYTES 0.5 % (0-5); LYMPHOCYTES 10.1 % (15-50); MCHC 32.3 g/dL (31.0-37.0); MONOCYTES 7.8 % (2-11); NEUTROPHILS 73.6 % (40-80); PLATELET COUNT 106 10x3/uL (130-400); RDW 17.5 % (11.5-14.5); WBC 6.1 10x3/uL (4.8-10.8)
[2018-05-10 21:24] LABS: ALKALINE PHOSPHATASE 67 U/L (46-116); ALT (SGPT) 17 U/L (10-68); BILIRUBIN - TOTAL 0.92 mg/dL (0.2-1.3); CALC OSMOLALITY 290 mosm/kg (275-300); CALCIUM 7.3 mg/dL (8.5-10.1); CARBON DIOXIDE 29.4 mmol/L (21.0-32.0); CHLORIDE - SERUM 111 mmol/L (98-107); POTASSIUM - SERUM 3.2 mmol/L (3.5-5.1); PROTEIN - SERUM 4.4 g/dL (6.4-8.2); SODIUM 143 mmol/L (136-145); UREA NITROGEN 17 mg/dL (7-18); eGFR NON AFRICAN AMERICAN 77 mL/min (90-120)
[2018-05-10 21:28] LABS: GLUCOSE 162 mg/dL (74-106)
[2018-05-11] VITALS (22 sets, daily range): BP systolic 140–177; BP diastolic 58–81
[2018-05-11 05:32] LABS: BASOPHILS 0.2 % (0-2); EOSINOPHILS 9.3 % (0-7); HEMATOCRIT 25.6 % (42.0-54.0); HEMOGLOBIN 8.2 g/dL (13.5-17.5); IMMATURE GRANULOCYTES 0.6 % (0-5); MCH 28.9 pg (26.0-34.0); MCV 90.1 fL (80.0-100.0); NEUTROPHILS 67.9 % (40-80); PLATELET COUNT 98 10x3/uL (130-400); RBC 2.84 10x6/uL (4.20-6.10); RDW 17.3 % (11.5-14.5); WBC 5.2 10x3/uL (4.8-10.8)
[2018-05-11 06:07] LABS: ALBUMIN 1.8 g/dL (3.4-5.0); ALKALINE PHOSPHATASE 63 U/L (46-116); ALT (SGPT) 15 U/L (10-68); CARBON DIOXIDE 27.1 mmol/L (21.0-32.0); CHLORIDE - SERUM 114 mmol/L (98-107); CREATININE - SERUM 0.8 mg/dL (0.6-1.3); PROTEIN - SERUM 3.9 g/dL (6.4-8.2); SODIUM 147 mmol/L (136-145); UREA NITROGEN 14 mg/dL (7-18); eGFR NON AFRICAN AMERICAN > 90 mL/min (90-120)
[2018-05-11 06:27] LABS: CALC OSMOLALITY 292 mosm/kg (275-300); GLUCOSE 94 mg/dL (74-106)
[2018-05-11 06:29] LABS: CALCIUM 6.9 mg/dL (8.5-10.1); POTASSIUM - SERUM 2.8 mmol/L (3.5-5.1)
[2018-05-11 12:50] LABS: MAGNESIUM - SERUM 1.8 mg/dL (1.8-2.4); PHOSPHOROUS 2.3 mg/dL (2.5-4.9)
[2018-05-11 20:58] LABS: BASOPHILS 0.1 % (0-2); EOSINOPHILS 5.8 % (0-7); HEMATOCRIT 30.4 % (42.0-54.0); IMMATURE GRANULOCYTES 0.5 % (0-5); LYMPHOCYTES 6.8 % (15-50); MCH 28.9 pg (26.0-34.0); MCHC 32.6 g/dL (31.0-37.0); MCV 88.9 fL (80.0-100.0); MEAN PLATELET VOLUME 9.7 fL (7.4-10.4); MONOCYTES 12.6 % (2-11); NEUTROPHILS 74.2 % (40-80); PLATELET COUNT 87 10x3/uL (130-400); RDW 17.5 % (11.5-14.5)
[2018-05-11 21:00] LABS: HEMOGLOBIN 9.9 g/dL (13.5-17.5); RBC 3.42 10x6/uL (4.20-6.10); WBC 7.5 10x3/uL (4.8-10.8)
[2018-05-11 21:28] LABS: ALKALINE PHOSPHATASE 71 U/L (46-116); ALT (SGPT) 16 U/L (10-68); BILIRUBIN - TOTAL 0.97 mg/dL (0.2-1.3); CALCIUM 7.8 mg/dL (8.5-10.1); CARBON DIOXIDE 27.2 mmol/L (21.0-32.0); CHLORIDE - SERUM 111 mmol/L (98-107); CREATININE - SERUM 0.9 mg/dL (0.6-1.3); PROTEIN - SERUM 4.4 g/dL (6.4-8.2); SODIUM 144 mmol/L (136-145); UREA NITROGEN 11 mg/dL (7-18); eGFR NON AFRICAN AMERICAN 87 mL/min (90-120)
[2018-05-11 21:30] LABS: CALC OSMOLALITY 282 mosm/kg (275-300); GLUCOSE 53 mg/dL (74-106); POTASSIUM - SERUM 3.4 mmol/L (3.5-5.1)
[2018-05-12] VITALS (15 sets, daily range): BP systolic 122–181; BP diastolic 58–84
[2018-05-12 06:21] LABS: BASOPHILS 0.3 % (0-2); EOSINOPHILS 6.7 % (0-7); HEMOGLOBIN 10.3 g/dL (13.5-17.5); IMMATURE GRANULOCYTES 0.9 % (0-5); LYMPHOCYTES 9.5 % (15-50); MCH 28.8 pg (26.0-34.0); MCHC 32.2 g/dL (31.0-37.0); MCV 89.4 fL (80.0-100.0); MEAN PLATELET VOLUME 10.1 fL (7.4-10.4); MONOCYTES 10.4 % (2-11); NEUTROPHILS 72.2 % (40-80); PLATELET COUNT 88 10x3/uL (130-400); RBC 3.58 10x6/uL (4.20-6.10); RDW 18.1 % (11.5-14.5); WBC 7.1 10x3/uL (4.8-10.8)
[2018-05-12 06:44] LABS: ALBUMIN 2.1 g/dL (3.4-5.0); ALKALINE PHOSPHATASE 70 U/L (46-116); ALT (SGPT) 17 U/L (10-68); BILIRUBIN - TOTAL 1.18 mg/dL (0.2-1.3); CALC OSMOLALITY 286 mosm/kg (275-300); CALCIUM 7.8 mg/dL (8.5-10.1); CARBON DIOXIDE 26.2 mmol/L (21.0-32.0); CHLORIDE - SERUM 111 mmol/L (98-107); CREATININE - SERUM 0.9 mg/dL (0.6-1.3); GLUCOSE 75 mg/dL (74-106); POTASSIUM - SERUM 3.3 mmol/L (3.5-5.1); PROTEIN - SERUM 4.6 g/dL (6.4-8.2); SODIUM 145 mmol/L (136-145); UREA NITROGEN 10 mg/dL (7-18); eGFR NON AFRICAN AMERICAN 87 mL/min (90-120)
[2018-05-12 07:37] LABS: PLATELET ESTIMATE DECREASED
[2018-05-12 18:41] LABS: HEMATOCRIT 33.2 % (42.0-54.0); HEMOGLOBIN 10.8 g/dL (13.5-17.5)
[2018-05-13 04:00] VITALS: BP 159/59
[2018-05-13 05:20] LABS: BASOPHILS 0.1 % (0-2); EOSINOPHILS 6.1 % (0-7); HEMATOCRIT 32.3 % (42.0-54.0); HEMOGLOBIN 10.4 g/dL (13.5-17.5); IMMATURE GRANULOCYTES 1.2 % (0-5); LYMPHOCYTES 7.9 % (15-50); MCH 28.9 pg (26.0-34.0); MCHC 32.2 g/dL (31.0-37.0); MCV 89.7 fL (80.0-100.0); MEAN PLATELET VOLUME 9.8 fL (7.4-10.4); NEUTROPHILS 74.7 % (40-80); PLATELET COUNT 103 10x3/uL (130-400); RDW 17.9 % (11.5-14.5); WBC 8.1 10x3/uL (4.8-10.8)
[2018-05-13 05:56] LABS: ALBUMIN 2.1 g/dL (3.4-5.0); ALKALINE PHOSPHATASE 72 U/L (46-116); ALT (SGPT) 19 U/L (10-68); BILIRUBIN - TOTAL 1.24 mg/dL (0.2-1.3); CALC OSMOLALITY 281 mosm/kg (275-300); CALCIUM 7.5 mg/dL (8.5-10.1); CHLORIDE - SERUM 108 mmol/L (98-107); POTASSIUM - SERUM 3.3 mmol/L (3.5-5.1); PROTEIN - SERUM 4.6 g/dL (6.4-8.2); SODIUM 143 mmol/L (136-145); UREA NITROGEN 9 mg/dL (7-18); eGFR NON AFRICAN AMERICAN 77 mL/min (90-120)
[2018-05-13 06:03] LABS: GLUCOSE 69 mg/dL (74-106)
[2018-05-13 09:16] VITALS: BP 157/67
[2018-05-13 12:22] VITALS: BP 155/73
[2018-05-13 16:30] VITALS: BP 154/58
[2018-05-13 20:00] VITALS: BP 172/69
[2018-05-14 06:11] VITALS: BP 167/69
[2018-05-14 08:52] VITALS: BP 163/69
[2018-05-14 12:00] VITALS: BP 155/63
[2018-05-14 16:47] VITALS: BP 155/66
== END 2018-05-14 20:29 | disposition home or self-care (01) | DRG 981 ==
LOC: D.ER 04:49 → D.ICU 06:13 → D.EDHOLD 06:13 → D.ICU 08:43 → D.M2 05-12 17:56
PROVIDERS: Family Medicine; Internal Medicine Gastroenterology; Internal Medicine Hematology & Oncology; Surgery
PROC: 0DB98ZX Excision of Duodenum, Via Natural or Artificial Opening Endoscopic, Diagnostic (ICD-10-PCS; principal; 2018-05-07 16:00)
PROC: 04V33DZ Restriction of Hepatic Artery with Intraluminal Device, Percutaneous Approach (ICD-10-PCS; 2018-05-08)
PROC: 05HY33Z Insertion of Infusion Device into Upper Vein, Percutaneous Approach (ICD-10-PCS; 2018-05-08)
DX: C17.0 Malignant neoplasm of duodenum (principal); K26.4 Chronic or unspecified duodenal ulcer with hemorrhage; D62 Acute posthemorrhagic anemia; I25.10 Atherosclerotic heart disease of native coronary artery without angina pectoris; E11.9 Type 2 diabetes mellitus without complications; I10 Essential (primary) hypertension; I48.0 Paroxysmal atrial fibrillation; I35.0 Nonrheumatic aortic (valve) stenosis; D49.0 Neoplasm of unspecified behavior of digestive system; R59.0 Localized enlarged lymph nodes

== ENCOUNTER 2018-05-15 22:23 | Inpatient (IN) | payer MEDICARE, BC ==
[~2018-05-15] VITALS: Ht 175.3 cm; Wt 91.6 kg
--- NOTE | ~2018-05-15 | CN ---
PATIENT NAME:WILEY KOWALSKI MEDICAL RECORD: [id number] : 38 LOCATION:D.MS Ochoa2215 ADMIT DATE: 05/16/18 ACCOUNT: [id number] CONSULTING PHYSICIAN: CHANG HAM REFERRING PHYSICIAN: MAYRA NUÑEZ DO DATE OF CONSULTATION: 05/16/2018 HISTORY OF PRESENT ILLNESS: This is a 77-year-old man who had a coronary artery bypass surgery for 1 vessel. The patient has been noted to have a left pleural effusion. Lasix was given without significant improvement. The patient presented to the Emergency Room with increasing shortness of breath and lower extremity edema. CT scan of the lung showed pulmonary edema to the right lower lobe, distal and proximal artery. The patient was hemodynamically stable. The patient has also duodenal ulcer with adenocarcinoma. The patient has also had duodenal ulcer bleed due to adenocarcinoma last week. He has been scheduled to see a dentist before surgery. The patient has orthopnea. There is no fever or chills. There is no chest pain. No syncope. PAST MEDICAL HISTORY: Remarkable for diabetes, peripheral neuropathy, hypertension, coronary artery disease. He has had gastrointestinal bleed and duodenal mass with adenocarcinoma. Has a benign prostatic hypertrophy and also had nasal congestion. Paroxysmal atrial fibrillation. ALLERGIES: INCLUDE FLOMAX WELL HYTRIN. MEDICATIONS: On admission include Protonix 40 mg b.i.d., potassium chloride 20 mEq t.i.d., Colace 100 mg b.i.d., oxycodone/Percocet 5 mg q. 6 hours as needed, Humulin insulin and Novolin N 14 units b.i.d., atenolol 50 mg daily, amiodarone 200 mg b.i.d., amlodipine 5 mg daily, Zyloprim 200 mg daily. FAMILY HISTORY: Remarkable for cardiovascular disease, diabetes, and cancer. SOCIAL HISTORY: The patient is with children. Does not smoke, use alcohol or recreational drugs. REVIEW OF SYSTEMS: CONSTITUTIONAL: The patient denies any fever or chills. No weight loss. SHEENT: The patient complained of nasal drainage. CENTRAL NERVOUS SYSTEM: There is no headache. There is no sore throat. CARDIOPULMONARY: The patient has orthopnea. There is no chest pain. GASTROINTESTINAL: There is no nausea, vomiting, and abdominal pain. GENITOURINARY: There is no frequency or dysuria. PHYSICAL EXAMINATION: GENERAL: Physical exam reveals an elderly man, sitting up in chair because of shortness of breath. VITAL SIGNS: Temperature 99.7, heart rate of 70, respiratory rate of 16, blood pressure 136/63, and saturation 93%. SHEENT: Unremarkable. There is mild redness in the nares. NECK: Supple, no adenopathy. Trachea is midline. PULMONARY: Clear. There are no rales, wheezes or crackles. CARDIAC: Exam shows no jugular venous distention, no murmur or gallops. ABDOMEN: Benign, without any tenderness. EXTREMITIES: No clubbing or cyanosis. There is 3+ pitting edema bilaterally. CONSULT REPORT [id number] WILEY KOWALSKI LABORATORY DATA: Showed arterial blood gases, pH 7.45, pCO2 of 39, pO2 of 74 on 3 liters. White count 8.2, hemoglobin is 10.8. INR is 1.14. D-dimer is 2.56. Chemistry is unremarkable. BNP is 3726, troponin I is 0.019. CT angiogram showed a moderate right lower lobe pulmonary embolus in the proximal and distal right lower lobe and right main stem. Chest x-ray showed persisting moderate left pleural effusion with adjacent atelectasis and infiltrate. The patient is hemodynamically medically stable. There is no need for thrombolysis because of a gastrointestinal bleed and gastrointestinal mass, anticoagulation cannot be done at this time. The patient has no DVT and therefore further testing would be helpful. It is unclear whether the blood clot came from. ASSESSMENT AND PLAN: 1. Coronary artery disease. 2. Congestive heart failure. The patient is also on Lasix. Increase Lasix to 60 mg t.i.d. 3. Rhinitis. We used saline nasal spray. 4. Left pleural effusion. The patient may need a thoracentesis with CT. 5. Dyspnea, improved patient's respiratory status, but the timing is not an emergency, this could be done in the next couple of days. 6. Diabetes mellitus, controlled with a sliding scale. 7. Paroxysmal atrial fibrillation, no anticoagulation at this time because of bleeding. PLAN: 1. Thoracentesis in the next 48-72 hours and not urgent. 2. Lasix 60 mg t.i.d. 3. Bronchodilators. 4. Controlled atrial fibrillation and no anticoagulation at this time because of bleeding. 5. SCD for DVT prophylaxis. Thanks for Dr. Segovia for the consultation. Time spent 60 minutes. TRANSINT:[id number] Voice Confirmation ID: [id number] DOCUMENT ID: [id number] CONSULT REPORT [id number] WILEY KOWALSKI AUGUSTINE K at 2009 CC: [id number] DICTATION DATE: 05/16/181834 TEXTILE SCREEN MAKER: 05/17/18 0547 ADM IN [place] [id number] [place] [address]
--- NOTE | ~2018-05-15 | PN ---
PATIENT:WILEY KOWALSKI MEDICAL RECORD: [id number] LOCATION:D.MS Rodriguez ADMISSION DATE: 05/16/18 PROGRESS NOTE DATE OF SERVICE: 05/17/2018 This is a 77-year-old man who had a coronary artery bypass surgery about a month ago. The patient developed left pleural effusion two weeks prior to admission and Lasix was given. The patient was noted swelling of both feet. Also, had increasing shortness of breath since Emergency Room. CT angiogram showed right lower lobe pulmonary embolism. The patient had a gastrointestinal bleed, possible adenocarcinoma of the duodenum because of the anticoagulation, it was ruled out. The patient had thoracentesis today and had an inferior vena cava placement. The patient feels much better than yesterday. He still has swollen feet and is more comfortable sitting up without orthopnea, there is no fever or chills. PHYSICAL EXAMINATION: GENERAL: A well-developed, well-nourished elderly man who is in no acute distress. VITAL SIGNS: Temperature 97.5, heart rate of 68, respiratory rate of 15, blood pressure 174/63. SHEENT: Unremarkable. NECK: There is no adenopathy. There is no tenderness. CHEST: Exam shows some mild rales at the bases. CARDIAC: Exam shows mild jugular venous distention. There are no murmurs or gallops. ABDOMEN: Benign, without any tenderness. There is no mass. There is no distention. EXTREMITIES: Show 3+ pitting edema bilaterally. There is no cyanosis, no clubbing. LABORATORY DATA: White count 6.7, hemoglobin 10.6, platelet count is 160. Chemistry is remarkable for potassium of 3.7, sodium is 145, creatinine is 1.1. Chest x-ray showed improved aeration at the lung base, status post thoracentesis, evidence of pneumothorax. Central venous vasculature is unchanged. ASSESSMENT: 1. Acute pulmonary embolism, status post inferior vena cava placement, it is retrievable. 2. Left pleural effusion, post coronary artery bypass graft improved with thoracentesis. 3. Congestive heart failure. 4. Hypertension. PLAN: 1. Potassium supplement. 2. Continue Lasix. 3. Bronchodilators. 4. Restrict fluids. TRANSINT:[id number] Voice Confirmation ID: [id number] DOCUMENT ID: [id number] PROGRESS NOTE [id number] WILEY KOWALSKI CHANG PHILIP at 1307 CC: [id number] DICTATION DATE: 05/17/182005 UPHOLSTERER APPRENTICE: 05/18/18 0823 DIS IN 05/24/18 [place] [id number] [place] [id number]
--- NOTE | ~2018-05-15 | OP ---
PATIENT NAME: WILEY KOWALSKI MEDICAL RECORD: [id number] :39 LOCATION:D.MS Ochoa2215 ADMISSION DATE:05/16/18 SURGEON: GUNNER PLAZA MD DATE OF OPERATION: 05/21/2018 PREOPERATIVE DIAGNOSES: 1. Duodenal adenocarcinoma. 2. Pulmonary embolus. 3. Paroxysmal atrial fibrillation. 4. Coronary artery disease. 5. Diabetes mellitus. 6. Hypertension. POSTOPERATIVE DIAGNOSES: 1. Duodenal adenocarcinoma. 2. Pulmonary embolus. 3. Paroxysmal atrial fibrillation. 4. Coronary artery disease. 5. Diabetes mellitus. 6. Hypertension. PROCEDURE: Left subclavian vein port placement with fluoroscopic interpretation. SURGEON: Gunner Plaza MD REPORT OF PROCEDURE: The patient's left chest was prepped and draped in sterile fashion and needle was used to cannulate the left subclavian vein and a guidewire was advanced with ease. Fluoro was used to note that the wire was in good position in the venous system. A skin incision was then made in the left superior lateral chest and a subcutaneous pouch was made over the pectoral fascia. The catheter was tunneled between this pouch and the wire exit site. The port was then sutured to the pectoral fascia using interrupted 2-0 Prolenes times 2. The catheter was cut with a beveled tip at 23-cm. The dilator trocar device was placed over the wire and the wire and dilator were removed. The catheter tip was advanced through the trocar and the trocar was removed. The catheter tip was noted to be resting in good position at the right atrial superior vena caval junction. The catheter aspirated nonpulsatile dark blood and flushed easily with heparinized saline. The subcutaneous tissues were reapproximated with interrupted 3-0 Vicryl and the skin was closed with running subcutaneous 5-0 Monocryl. We then accessed the port and flushed it one last time with heparinized saline. COMPLICATIONS: None. CONDITION: Stable. ANESTHESIA: General endotracheal. BLOOD LOSS: Minimal. TRANSINT:[id number] Voice Confirmation ID: [id number] DOCUMENT ID: [id number] OPERATIVE REPORT [id number] KOWALSKI,PAUL GUNNER FABIAN MD at 1110 CC: MINI HALL [id number] DICTATION DATE: 05/21/18 1312 DIGITAL MEASUREMENT ADVISOR: 05/21/18 1331 DIS IN 05/24/18 [facility] [address] [address]
--- NOTE | ~2018-05-15 | HEMODYNAMI ---
PATIENT:WILEY KOWALSKI MEDICAL RECORD: [id number] : 39 LOCATION:GabrielaAZ Raymond.2215 ADMISSION DATE: 05/16/18 Generatedon:05/17/201812:39 Patient name: WILEY KOWALSKI Patient #: [id number] SSN: : 1940 Date of study: 05/17/2018 Page: Of Hemodynamic Procedure Report Patient Data Patient Demographics Procedure consent was obtained First Name: WILEY Gender: Male Last Name: DEX : 1940 [facility] Initial: FRANK Age: 77 year(s) Patient #: [id number] Race: Unknown Additional ID: [id number] Contact details Address: [address] [place] [address] State: [place] City: [facility] Zip code: [address] Past Medical History Allergies Allergen Reaction Date Comments Reported Other allergy 03/26/2018 FLOMAX,TERAZOSIN Admission Admission Data Admission Date: 05/16/2018 Admission Time: 5:01 Room #: D.2215 Height (in.): 69 BSA: 2.07 (m2) Height (cm.): 175.26 BMI: 29.83 (kg/m2) Weight (lbs.): 202 Weight (kg.): 91.63 Procedure Procedure Types Cath Procedure Peripheral Cath Diagnostic Procedure Cath Peripheral Venography IVC/SVC Inferior Venacava Filter Procedure Description Procedure Date Procedure Date: 05/17/2018 Procedure Start Time: 12:18 Procedure Staff Name Function Sher Srivastava MD Performing Physician Faiza Ha RT Sales Agent Protective Service Kaye Metzger RN Nurse Dragan Silvestre RT Scrub Procedure Data Cath Procedure Fluoroscopy Diagnostic fluoroscopy Total fluoroscopy Time: 1.3 time: 1.3 min min Diagnostic fluoroscopy Total fluoroscopy dose: 190 dose: 190 mGy mGy Contrast Material Contrast Material Type Amount (ml) Isovue 300 35 Diagnostic catheters Device Type Used For End Catheter Placement Cook PIGTAIL CALIBRATED 5FR 100CM catheter ([id number]) Procedure Medications Medication Administration Route Dosage Oxygen etCO2 Nasal cannula 3 l/min Lidocaine 1% added to field 20 Heparin Flush Bag added to field 3 bags (1000units/500ml NS) Fentanyl I.V. 50 mcg Versed I.V. 2 mg Hemodynamics Rest BSA: 2.07 (m2) O2 Consumption: Estimated: 281.52 (ml/min) O2 Consumption indexed : Estimated:136 (ml/min/m) Pre Cath Intra NCS Post Cath Vital Signs Time Heart Resp SPO2 etCO2 NIBP (mmHg) Rhythm Pain Sedation Rate (ipm) (%) (mmHg) Status Level (bpm) 12:03:40 65 5 93 27.8 159/54(127) NSR 0 (11) 9(A) , No pain 12:08:16 65 21 91 29.3 160/66(132) NSR 0 (11) 9(A) , No pain 12:12:55 65 20 92 33.1 157/60(132) NSR 0 (11) 9(A) , No pain 12:17:23 62 18 92 31.6 151/62(120) NSR 0 (11) 9(A) , No pain 12:21:54 61 17 93 29.3 155/62(126) NSR 0 (11) 8(A) , No pain 12:26:26 63 18 91 32.3 154/62(119) NSR 0 (11) 8(A) , No pain 12:30:56 62 17 94 21 145/58(117) NSR 0 (11) 8(A) , No pain 12:35:25 64 21 93 31.6 155/63(118) NSR 0 (11) 8(A) , No pain Medications Time Medication Route Dose Verified Delivered Reason Notes Effec tiveness by by 12:09:00 Oxygen etCO2 3 Sher Restrepo Per Nasal l/min Yassine Srivastava RN protocol cannula 12:09:18 Lidocaine 1% added 20ml Sher Olivarez Per to vial Carola Srivastava MD protocol field 12:09:34 Heparin Flush added 3 Sher Olivarez Per Bag to bags Carola Srivastava MD protocol (1000units/500ml field LINDSEY NS) 12:17:50 Fentanyl I.V. 50 Sher Restrepo for Sedat ed @ mcg Yassine Srivastava RN sedation 12:21:47 12:18:04 Versed I.V. 2 mg Sher Restrepo for Sedat ed @ Yassine Srivastava RN sedation 12:21:50 Procedure Log Time Note 11:49:14 Patient Height : 69 inches 11:49:17 Patient Weight : 202 lbs 11:49:43 Use device set IR Diagnostic 11:49:45 Tegaderm 4 x 4 (1626W) opened to sterile field. 11:49:46 Sterile Angiographic Pack opened to sterile field. 11:49:47 Bag Decanter (2002S) opened to sterile field. 11:49:47 ACIST Manifold (32653) opened to sterile field. 11:49:48 ACIST Hand Control (26038) opened to sterile field. 11:49:50 ACIST Syringe (89485) opened to sterile field. 11:52:33 Time tracking: Call back (After hours or weekends) 11:52:41 Plan of Care:Hemodynamics will remain stable., Cardiac rhythm will remain stable., Comfort level will be maintained., Respiratory function will remain adequate., Patient/ family verbilizes understanding of procedure., Procedure tolerated without complication., Recovers from procedure without complications.. 11:52:51 Patient received from Med/Surg to IR Alert and oriented. Tansferred to table in Supine position. 11:52:54 Correct patient and procedure confirmed by team. 11:52:56 Signed procedure consent form obtained from patient. 11:53:03 H&P Date Dictated: 05/17/2018 Within 30 days and on chart.. 11:53:10 - 11:53:11 Pre-procedure instructions explained to patient. 11:53:12 Pre-op teaching completed and patient verbalized understanding. 11:53:16 Family unavailable. 11:53:19 Patient NPO since Midnight. 11:53:48 - 11:53:57 DOC .035 wire (V78723) opened to sterile field. 11:54:05 TUBING Contrast Injection High Pressure (HIN757H) opened to sterile field. 11:54:48 Micropuncture VSI 4FR kit opened to sterile field. 12:02:02 ECG and BP/O2 sat monitors applied to patient. 12:02:02 Vital chart was started 12:03:07 Full Disclosure recording started 12:03:18 Is patient on blood thinner?No 12:03:21 Patient diabetic? Yes. 12:03:23 If diabetic: On Metformin? Yes 12:03:28 - 12:03:31 ----Pre-sedation anethsthesia assessment.---- 12:03:36 Previous problem with sedation/anesthesia? No ? 12:03:43 Snore? No 12:03:59 Sleep apnea? No 12:04:03 Deviated septum? No 12:04:05 Opens mouth fully? Yes 12:04:07 Sticks out tongue? Yes 12:04:15 Airway obstruction? No but has cad 12:04:21 Dentures? No ? 12:04:23 - 12:04:34 IV patent on arrival in right hand with D5/.45%NaCl at O. 12:04:50 Right neck area was prepped with chlora-prep and draped in sterile fashion 12:04:56 - 12:05:12 allergies, hytrin and flomax 12:09:00 Oxygen 3 l/min etCO2 Nasal cannula was administered by Kaye Metzger RN; Per protocol; 12::18 Lidocaine 1% 20ml vial added to field was administered by Sher Srivastava MD; Per protocol; 12:09:34 Heparin Flush Bag (1000units/500ml NS) 3 bags added to field was administered by Sher Srivastava MD; Per protocol; 12:17:06 A TVShow Time PIGTAIL CALIBRATED 5FR 100CM catheter ([id number]) was advanced over the wire and used for . 12:17:12 Physician arrived 12:17:13 --------ALL STOP TIME OUT------ 12:17:15 Final Timeout: patient, procedure, and site verified with staff and physician. All members of the team are in agreement. 12:17:50 Fentanyl 50 mcg I.V. was administered by Kaye Metzger RN; for sedation; 12:18:04 Versed 2 mg I.V. was administered by Kaye Metzger RN; for sedation; 12:18:05 Procedure started. 12:18:14 Local anesthetic to right IJ vein with Lidocaine 1% by Sher Srivastava MD.INITIAL ACCESS ONLY 12:18:57 Venous access obtained using ultrasound guidance. 12:21:11 FILTER Towns Jugular Vena Cava (SC944R) opened to sterile field. 12:21:47 Effectiveness of Fentanyl delivered @ 12:17:50 is: Sedated 12:21:50 Effectiveness of Versed delivered @ 12:18:04 is: Sedated 12:22:20 SHEATH 5FR Cameron (XKP673) opened to sterile field. 12:24:48 AMPLATZ Super stiff 180cm wire ([id number]) opened to sterile field. 12:37:00 Contrast amount:Isovue 300 35ml. 12:37:02 Procedure ended.(Physican Out) 12:37:36 Fluoroscopy time 01.30 minutes. 12:37:41 Fluoroscopy dose: 190 mGy 12:37:41 Flurop Dose total: 190 12:37:47 Procedure and supply charges have been captured, reviewed, submitted an d are correct. 12:39:05 Vital chart was stopped Device Usage Item Name Manufacture Quantity Catalog Hospital Part Current Minima l Lot# / Number Charge Number Stock Stock Serial# Code Tegaderm 4 x 3M 1 1626W 288143 177191 [id number] 5 4 (1626W) Sterile Cardinal 1 [id number] 058469 889212 5 Angiographic Health Pack Bag Decanter Microtek 1 2001S 385530 67790 220361 5 (2001S) Medical Inc. ACIST Acist 1 16176 821576 340845 256668 5 Manifold Medical (48672) Systems Inc ACIST Hand Acist 1 84180 071346 802014 959534 5 Control Medical (68930) Systems Inc ACIST Syringe Acist 1 68247 643737 211494 471563 20 (60320) Medical Systems Inc DOC .035 wire Cook Medical 1 I41957 366579 955002 5 (I19846) TUBING Merit 1 RTU056A 878120 736943 531516 5 Contrast Medical Injection High Pressure (WBV610G) Micropuncture VSI VASCULAR 1 7266V 861537 933621 5 VSI 4FR kit SOLUTIONS Cook PIGTAIL Cook Medical 1 X29500 499501 294972 485748 5 CALIBRATED 5FR 100CM catheter (B05157) FILTER Geovanna Bard 1 ZO234X 863405 366703 327717 5 [id number] Jugular Vena Cava (OY810J) SHEATH 5FR Terumo 1 ZZB723 660659 393272 053785 40 Cameron (NZB747) AMPLATZ Super [place] 1 [id number] 704606 473584 5 stiff 180cm Scientific wire ([id number]) Signature Audit [place]rens Stage Time Signature Unsigned Intra-Procedure 05/17/2018 Faiza Ha 12:39:01 PM RT(R) [facility] [address] [place] [address]
[~2018-05-15 22:23] MED LIST changes: +PACERONE200 MG PO
[2018-05-15 23:05] LABS: BASOPHILS 0.1 % (0-2); EOSINOPHILS 3.6 % (0-7); HEMATOCRIT 34.2 % (42.0-54.0); HEMOGLOBIN 10.8 g/dL (13.5-17.5); IMMATURE GRANULOCYTES 1.8 % (0-5); LYMPHOCYTES 6.6 % (15-50); MCHC 31.6 g/dL (31.0-37.0); MCV 91.7 fL (80.0-100.0); MONOCYTES 11.8 % (2-11); NEUTROPHILS 76.1 % (40-80); RBC 3.73 10x6/uL (4.20-6.10); WBC 8.2 10x3/uL (4.8-10.8)
[2018-05-15 23:06] LABS: PLATELET COUNT 142 10x3/uL (130-400)
[2018-05-15 23:21] LABS: APTT 31.4 SECONDS (22.8-39.4); INR 1.14 (0.85-1.17); PROTIME 14.1 SECONDS (11.6-15.0)
[2018-05-15 23:22] LABS: ALBUMIN 2.4 g/dL (3.4-5.0); ALKALINE PHOSPHATASE 101 U/L (46-116); ALT (SGPT) 19 U/L (10-68); BILIRUBIN - TOTAL 1.24 mg/dL (0.2-1.3); CALC OSMOLALITY 286 mosm/kg (275-300); CALCIUM 7.8 mg/dL (8.5-10.1); CARBON DIOXIDE 31.6 mmol/L (21.0-32.0); CHLORIDE - SERUM 106 mmol/L (98-107); POTASSIUM - SERUM 3.8 mmol/L (3.5-5.1); PROTEIN - SERUM 5.3 g/dL (6.4-8.2); SODIUM 142 mmol/L (136-145); UREA NITROGEN 11 mg/dL (7-18); eGFR NON AFRICAN AMERICAN 77 mL/min (90-120)
[2018-05-15 23:23] LABS: D-DIMER-QUANTITATIVE 2.56 ug/mLFEU (0.20-0.54); GLUCOSE 186 mg/dL (74-106)
[2018-05-15 23:33] LABS: CKMB 2.8 U/L (0.0-3.6); CREATINE KINASE 67 UL (21-232); PRO BNP 3726 pg/mL (0-450); TROPONIN-I 0.019 ng/mL (0.000-0.060)
[2018-05-16 02:57] VITALS: BP 159/62
[2018-05-16 05:30] VITALS: BP 167/71
[2018-05-16 09:19] VITALS: BP 171/63
[2018-05-16 09:35] VITALS: BMI 29.8
[2018-05-16 10:44] VITALS: Ht 175.3 cm; Wt 91.6 kg
[2018-05-16 12:16] VITALS: BP 173/70
[2018-05-16 16:16] VITALS: BP 166/63
[2018-05-16 20:00] VITALS: BP 166/60
[2018-05-17] VITALS (11 sets, daily range): BP systolic 105–174; BP diastolic 54–92
[2018-05-17 05:10] LABS: BASOPHILS 0.3 % (0-2); EOSINOPHILS 4.2 % (0-7); HEMATOCRIT 33.9 % (42.0-54.0); HEMOGLOBIN 10.6 g/dL (13.5-17.5); IMMATURE GRANULOCYTES 1.5 % (0-5); LYMPHOCYTES 7.4 % (15-50); MCH 28.8 pg (26.0-34.0); MCHC 31.3 g/dL (31.0-37.0); MCV 92.1 fL (80.0-100.0); MEAN PLATELET VOLUME 10.2 fL (7.4-10.4); MONOCYTES 11.4 % (2-11); NEUTROPHILS 75.2 % (40-80); PLATELET COUNT 160 10x3/uL (130-400); RBC 3.68 10x6/uL (4.20-6.10); RDW 16.8 % (11.5-14.5); WBC 6.7 10x3/uL (4.8-10.8)
[2018-05-17 07:00] LABS: ALBUMIN 2.2 g/dL (3.4-5.0); ANION GAP 7.1 mmol/L (8-16); BILIRUBIN - TOTAL 1.06 mg/dL (0.2-1.3); CALCIUM 7.7 mg/dL (8.5-10.1); CARBON DIOXIDE 34.6 mmol/L (21.0-32.0); CREATININE - SERUM 1.1 mg/dL (0.6-1.3); MAGNESIUM - SERUM 1.6 mg/dL (1.8-2.4); PHOSPHOROUS 3.1 mg/dL (2.5-4.9); POTASSIUM - SERUM 3.7 mmol/L (3.5-5.1); PROTEIN - SERUM 4.7 g/dL (6.4-8.2); THYROID STIMULATING HORMONE 5.65 uIU/mL (0.36-3.74)
[2018-05-17 10:10] LABS: INR 1.14 (0.85-1.17); PROTIME 14.2 SECONDS (11.6-15.0)
[2018-05-18 04:32] VITALS: BP 130/85
[2018-05-18 04:35] LABS: BASOPHILS 0.3 % (0-2); HEMATOCRIT 35.5 % (42.0-54.0); HEMOGLOBIN 11.2 g/dL (13.5-17.5); IMMATURE GRANULOCYTES 1.1 % (0-5); LYMPHOCYTES 9.1 % (15-50); MCH 29.2 pg (26.0-34.0); MCHC 31.5 g/dL (31.0-37.0); MCV 92.7 fL (80.0-100.0); MEAN PLATELET VOLUME 10.6 fL (7.4-10.4); MONOCYTES 8.8 % (2-11); NEUTROPHILS 77.7 % (40-80); PLATELET COUNT 185 10x3/uL (130-400); RBC 3.83 10x6/uL (4.20-6.10); RDW 16.9 % (11.5-14.5); WBC 7.4 10x3/uL (4.8-10.8)
[2018-05-18 05:08] LABS: ALBUMIN 2.2 g/dL (3.4-5.0); ANION GAP 6.3 mmol/L (8-16); BILIRUBIN - TOTAL 0.99 mg/dL (0.2-1.3); CALCIUM 8.1 mg/dL (8.5-10.1); CARBON DIOXIDE 35.6 mmol/L (21.0-32.0); CREATININE - SERUM 1.1 mg/dL (0.6-1.3); MAGNESIUM - SERUM 1.6 mg/dL (1.8-2.4); PHOSPHOROUS 3.5 mg/dL (2.5-4.9); POTASSIUM - SERUM 3.9 mmol/L (3.5-5.1); PROTEIN - SERUM 5.2 g/dL (6.4-8.2)
[2018-05-18 08:43] VITALS: BP 145/50
[2018-05-18 12:33] LABS: HEMATOCRIT 35.2 % (42.0-54.0); HEMOGLOBIN 11.2 g/dL (13.5-17.5); MCH 29.3 pg (26.0-34.0); MCHC 31.8 g/dL (31.0-37.0); MCV 92.1 fL (80.0-100.0); RBC 3.82 10x6/uL (4.20-6.10); RDW 16.7 % (11.5-14.5)
[2018-05-18 13:09] LABS: INR 1.11 (0.85-1.17); PROTIME 13.9 SECONDS (11.6-15.0)
[2018-05-18 13:16] VITALS: BP 113/70; BP 140/56
[2018-05-18 18:06] VITALS: BP 151/56
[2018-05-18 20:00] VITALS: BP 147/52
[2018-05-18 21:24] LABS: HEMATOCRIT 35.2 % (42.0-54.0)
[2018-05-19 05:03] LABS: BASOPHILS 0.1 % (0-2); HEMATOCRIT 37.3 % (42.0-54.0); HEMOGLOBIN 11.6 g/dL (13.5-17.5); IMMATURE GRANULOCYTES 1.1 % (0-5); LYMPHOCYTES 8.7 % (15-50); MCH 28.9 pg (26.0-34.0); MCHC 31.1 g/dL (31.0-37.0); MONOCYTES 8.8 % (2-11); NEUTROPHILS 78.3 % (40-80); PLATELET COUNT 215 10x3/uL (130-400); RBC 4.01 10x6/uL (4.20-6.10); RDW 16.3 % (11.5-14.5); WBC 7.3 10x3/uL (4.8-10.8)
[2018-05-19 05:51] LABS: ALBUMIN 2.4 g/dL (3.4-5.0); ANION GAP 9.5 mmol/L (8-16); BILIRUBIN - TOTAL 1.09 mg/dL (0.2-1.3); CALCIUM 8.1 mg/dL (8.5-10.1); CARBON DIOXIDE 36.2 mmol/L (21.0-32.0); CREATININE - SERUM 1.3 mg/dL (0.6-1.3); POTASSIUM - SERUM 3.7 mmol/L (3.5-5.1); PROTEIN - SERUM 5.7 g/dL (6.4-8.2)
[2018-05-19 06:59] VITALS: BP 160/48
[2018-05-19 09:24] VITALS: BP 144/53
[2018-05-19 12:27] VITALS: BP 152/95
[2018-05-19 15:22] LABS: PROTEIN - BODY FLUID 1.5 G/DL
[2018-05-19 16:58] VITALS: BP 142/46
[2018-05-19 17:47] LABS: EOS BF 1 %; MACROPHAGES BF 35 %; MESOTHELIALS BF 3 %; NEUT - BF 12 %
[2018-05-19 21:36] VITALS: BP 140/53
[2018-05-19 22:15] LABS: ACID FAST SMEAR Negative (()); AFB SPECIMEN PROCESSING Concentration (())
[2018-05-20 04:53] LABS: HEMATOCRIT 37.4 % (42.0-54.0); HEMOGLOBIN 11.7 g/dL (13.5-17.5); MCH 28.9 pg (26.0-34.0); MCHC 31.3 g/dL (31.0-37.0); MCV 92.3 fL (80.0-100.0); MEAN PLATELET VOLUME 10.5 fL (7.4-10.4); RBC 4.05 10x6/uL (4.20-6.10); RDW 16.2 % (11.5-14.5); WBC 10.6 10x3/uL (4.8-10.8)
[2018-05-20 05:10] LABS: INR 1.13 (0.85-1.17); PROTIME 14.1 SECONDS (11.6-15.0)
[2018-05-20 05:13] LABS: APTT 50.4 SECONDS (22.8-39.4)
[2018-05-20 05:15] LABS: ANION GAP 8.8 mmol/L (8-16); CALCIUM 8.2 mg/dL (8.5-10.1); CARBON DIOXIDE 34.9 mmol/L (21.0-32.0); CREATININE - SERUM 1.3 mg/dL (0.6-1.3); MAGNESIUM - SERUM 1.5 mg/dL (1.8-2.4); PHOSPHOROUS 3.4 mg/dL (2.5-4.9); POTASSIUM - SERUM 3.7 mmol/L (3.5-5.1)
[2018-05-20 08:40] VITALS: BP 152/54
[2018-05-20 12:19] VITALS: BP 154/52
[2018-05-20 14:30] LABS: FUNGUS STAIN Final report (())
[2018-05-20 14:30] LABS: ACID FAST SMEAR Negative (()); AFB SPECIMEN PROCESSING Not Indicated (()); FUNGUS STAIN Final report (())
[2018-05-20 16:37] VITALS: BP 133/47
[2018-05-20 21:12] VITALS: BP 144/62
[2018-05-21] VITALS (10 sets, daily range): BP systolic 108–162; BP diastolic 44–88
[2018-05-21 04:55] LABS: HEMATOCRIT 36.5 % (42.0-54.0); HEMOGLOBIN 11.5 g/dL (13.5-17.5); MCH 28.9 pg (26.0-34.0); MCHC 31.5 g/dL (31.0-37.0); MCV 91.7 fL (80.0-100.0); RBC 3.98 10x6/uL (4.20-6.10); RDW 16.1 % (11.5-14.5); WBC 8.9 10x3/uL (4.8-10.8)
[2018-05-21 06:16] LABS: ALBUMIN 2.5 g/dL (3.4-5.0); ANION GAP 9.8 mmol/L (8-16); BILIRUBIN - TOTAL 0.94 mg/dL (0.2-1.3); CALCIUM 8.3 mg/dL (8.5-10.1); CARBON DIOXIDE 35.2 mmol/L (21.0-32.0); CREATININE - SERUM 1.3 mg/dL (0.6-1.3); PROTEIN - SERUM 5.4 g/dL (6.4-8.2)
[2018-05-21 14:55] LABS: BASOPHILS 0.2 % (0-2); HEMATOCRIT 36.8 % (42.0-54.0); HEMOGLOBIN 11.4 g/dL (13.5-17.5); IMMATURE GRANULOCYTES 0.7 % (0-5); LYMPHOCYTES 6.6 % (15-50); MCH 28.7 pg (26.0-34.0); MCV 92.7 fL (80.0-100.0); MEAN PLATELET VOLUME 10.5 fL (7.4-10.4); MONOCYTES 6.7 % (2-11); NEUTROPHILS 84.8 % (40-80); PLATELET COUNT 217 10x3/uL (130-400); RBC 3.97 10x6/uL (4.20-6.10); RDW 16.1 % (11.5-14.5); WBC 9.4 10x3/uL (4.8-10.8)
[2018-05-21 15:11] LABS: INR 1.33 (0.85-1.17)
[2018-05-21 15:13] LABS: APTT 32.4 SECONDS (22.8-39.4)
[2018-05-21 15:22] LABS: ANION GAP 9.3 mmol/L (8-16); CALCIUM 8.4 mg/dL (8.5-10.1); CARBON DIOXIDE 33.7 mmol/L (21.0-32.0); CREATININE - SERUM 1.5 mg/dL (0.6-1.3)
[2018-05-22] VITALS: BP 146/46
[2018-05-22 04:00] VITALS: BP 157/55
[2018-05-22 04:22] LABS: HEMATOCRIT 35.6 % (42.0-54.0); HEMOGLOBIN 11.1 g/dL (13.5-17.5); MCH 28.7 pg (26.0-34.0); MCHC 31.2 g/dL (31.0-37.0); MEAN PLATELET VOLUME 10.1 fL (7.4-10.4); RBC 3.87 10x6/uL (4.20-6.10); WBC 8.3 10x3/uL (4.8-10.8)
[2018-05-22 08:30] VITALS: BP 149/40
[2018-05-22 16:32] VITALS: BP 151/53
[2018-05-22 20:00] VITALS: BP 128/59
[2018-05-23] VITALS: BP 141/47
[2018-05-23 00:05] LABS: INR 2.13 (0.85-1.17); PROTIME 23.3 SECONDS (11.6-15.0)
[2018-05-23 00:35] LABS: HEMATOCRIT 37.9 % (42.0-54.0); HEMOGLOBIN 11.7 g/dL (13.5-17.5); MCH 28.7 pg (26.0-34.0); MCHC 30.9 g/dL (31.0-37.0); MCV 93.1 fL (80.0-100.0); MEAN PLATELET VOLUME 10.7 fL (7.4-10.4); RBC 4.07 10x6/uL (4.20-6.10); RDW 15.9 % (11.5-14.5); WBC 9.3 10x3/uL (4.8-10.8)
[2018-05-23 04:00] VITALS: BP 148/57
[2018-05-23 05:04] LABS: BASOPHILS 0.3 % (0-2); EOSINOPHILS 1.3 % (0-7); HEMATOCRIT 35.6 % (42.0-54.0); HEMOGLOBIN 11.1 g/dL (13.5-17.5); IMMATURE GRANULOCYTES 0.5 % (0-5); LYMPHOCYTES 6.4 % (15-50); MCH 28.4 pg (26.0-34.0); MCHC 31.2 g/dL (31.0-37.0); MEAN PLATELET VOLUME 10.2 fL (7.4-10.4); MONOCYTES 8.4 % (2-11); NEUTROPHILS 83.1 % (40-80); PLATELET COUNT 218 10x3/uL (130-400); RBC 3.91 10x6/uL (4.20-6.10); RDW 15.9 % (11.5-14.5); WBC 9.6 10x3/uL (4.8-10.8)
[2018-05-23 05:21] LABS: INR 2.06 (0.85-1.17); PROTIME 22.6 SECONDS (11.6-15.0)
[2018-05-23 05:24] LABS: ALBUMIN 2.5 g/dL (3.4-5.0); ANION GAP 7.2 mmol/L (8-16); BILIRUBIN - TOTAL 0.84 mg/dL (0.2-1.3); CALCIUM 8.4 mg/dL (8.5-10.1); CARBON DIOXIDE 32.5 mmol/L (21.0-32.0); CREATININE - SERUM 1.4 mg/dL (0.6-1.3); POTASSIUM - SERUM 3.7 mmol/L (3.5-5.1); PROTEIN - SERUM 5.8 g/dL (6.4-8.2)
[2018-05-23 09:24] VITALS: BP 153/53
[2018-05-23 12:59] VITALS: BP 149/49
[2018-05-23 20:20] VITALS: BP 146/50
[2018-05-24 00:15] VITALS: BP 129/47
[2018-05-24 03:47] LABS: BASOPHILS 0.3 % (0-2); EOSINOPHILS 2.3 % (0-7); HEMATOCRIT 36.1 % (42.0-54.0); HEMOGLOBIN 11.4 g/dL (13.5-17.5); IMMATURE GRANULOCYTES 0.3 % (0-5); LYMPHOCYTES 8.2 % (15-50); MCH 28.9 pg (26.0-34.0); MCHC 31.6 g/dL (31.0-37.0); MCV 91.4 fL (80.0-100.0); MEAN PLATELET VOLUME 10.5 fL (7.4-10.4); MONOCYTES 7.2 % (2-11); NEUTROPHILS 81.7 % (40-80); PLATELET COUNT 224 10x3/uL (130-400); RBC 3.95 10x6/uL (4.20-6.10); RDW 15.9 % (11.5-14.5)
[2018-05-24 03:57] LABS: INR 2.18 (0.85-1.17); PROTIME 23.6 SECONDS (11.6-15.0)
[2018-05-24 04:14] VITALS: BP 153/48
[2018-05-24 04:28] LABS: ALBUMIN 2.4 g/dL (3.4-5.0); ANION GAP 10.1 mmol/L (8-16); BILIRUBIN - TOTAL 0.92 mg/dL (0.2-1.3); CALCIUM 8.1 mg/dL (8.5-10.1); CARBON DIOXIDE 32.6 mmol/L (21.0-32.0); CREATININE - SERUM 1.4 mg/dL (0.6-1.3); POTASSIUM - SERUM 3.7 mmol/L (3.5-5.1); PROTEIN - SERUM 5.8 g/dL (6.4-8.2)
[2018-05-24 08:41] VITALS: BP 162/57
[2018-05-24] MEDS ORDERED: COUMADIN5 MG PO (10:10)
[2018-05-24] MEDS ORDERED: FUROSEMIDE40 MG PO (10:12)
[2018-05-24 11:58] VITALS: BP 148/51
[2018-06-15 11:15] LABS: FUNGUS MYCOLOGY CULTURE Final report (())
[2018-06-15 19:09] LABS: FUNGUS MYCOLOGY CULTURE Final report (())
== END 2018-05-24 13:56 | disposition home health service (06) | DRG 166 ==
LOC: D.ER 22:23 → D.MS 05-16 05:01 → D.EDHOLD 05-16 05:01 → D.MS 05-16 06:52
PROVIDERS: Anesthesiology; Family Medicine; General Practice; Internal Medicine; Internal Medicine Hematology & Oncology; Internal Medicine Pulmonary Disease
PROC: 06H03DZ Insertion of Intraluminal Device into Inferior Vena Cava, Percutaneous Approach (ICD-10-PCS; 2018-05-17)
PROC: 0W9B3ZZ Drainage of Left Pleural Cavity, Percutaneous Approach (ICD-10-PCS; principal; 2018-05-17 09:50)
PROC: 0JH63WZ Insertion of Totally Implantable Vascular Access Device into Chest Subcutaneous Tissue and Fascia, Percutaneous Approach (ICD-10-PCS; 2018-05-21)
PROC: 02HV33Z Insertion of Infusion Device into Superior Vena Cava, Percutaneous Approach (ICD-10-PCS; 2018-05-21)
PROC: B5181ZA Fluoroscopy of Superior Vena Cava using Low Osmolar Contrast, Guidance (ICD-10-PCS; 2018-05-21)
DX: I26.99 Other pulmonary embolism without acute cor pulmonale (principal); J96.01 Acute respiratory failure with hypoxia; I50.33 Acute on chronic diastolic (congestive) heart failure; J90 Pleural effusion, not elsewhere classified; C17.0 Malignant neoplasm of duodenum; J98.11 Atelectasis; D62 Acute posthemorrhagic anemia; I11.0 Hypertensive heart disease with heart failure; I25.10 Atherosclerotic heart disease of native coronary artery without angina pectoris; K26.9 Duodenal ulcer, unspecified as acute or chronic, without hemorrhage or perforation; I48.0 Paroxysmal atrial fibrillation; E11.42 Type 2 diabetes mellitus with diabetic polyneuropathy; Z95.1 Presence of aortocoronary bypass graft; I27.20 Pulmonary hypertension, unspecified; E83.42 Hypomagnesemia; N40.0 Benign prostatic hyperplasia without lower urinary tract symptoms; I07.1 Rheumatic tricuspid insufficiency

== ENCOUNTER → 2018-06-09 13:54 | Outpatient (CLI) | payer MEDICARE, BC ==
[2018-05-16 10:44] VITALS: BMI 29.8
[~2018-06-09 13:54] MED LIST changes: +AUGMENTIN 875-11 TAB PO; +COUMADIN5 MG PO; +FUROSEMIDE40 MG PO; +LASIX40 MG PO; +TESSALON PERLE100 MG PO
== END | disposition home or self-care (01) ==
LOC: D.RAD 13:54
DX: J44.9 Chronic obstructive pulmonary disease, unspecified (principal)

== ENCOUNTER 2018-06-21 17:20 | Inpatient (IN) | payer MEDICARE, BC ==
[~2018-06-21] VITALS: Ht 175.3 cm; Wt 80.9 kg
--- NOTE | ~2018-06-21 | CN ---
PATIENT NAME:WILEY HERNANDEZ MEDICAL RECORD: [id number] : 38 LOCATION:D. D.2107 ADMIT DATE: 06/21/18 ACCOUNT: [id number] CONSULTING PHYSICIAN: KIYA STEWARD MD REFERRING PHYSICIAN: KAITLIN LINTON DO DATE OF CONSULTATION: 06/22/2018 CONSULT REQUESTING PHYSICIAN: Dr. Farooq Linton. REASON FOR CONSULTATION: Pneumonia, shortness of breath. HISTORY OF PRESENT ILLNESS: Mr. Hernandez is a 77-year-old gentleman who has a history of colon cancer. A couple of weeks ago, he was admitted with DVT and PE. According to the patient, he was feeling very weak after the chemotherapy. Also, he has some shortness of breath. He had a fever of 102 yesterday. The patient came into the ER, found out the patient had pneumonia. He is coughing without much sputum production. REVIEW OF SYSTEMS: As in history of present illness. PAST MEDICAL HISTORY: 1. CA of colon. 2. Coronary artery disease. 3. Hypertension. 4. History of rheumatic fever and murmur as a child. 5. History of GI bleed. PAST SURGICAL HISTORY: 1. He has a history of CABG. 2. Herniorrhaphy. 3. Bilateral knee replacement. 4. Cataract surgery. 5. Knee surgery. ALLERGIES: HE IS ALLERGIC TO FLOMAX AND HYTRIN. MEDICATIONS: [employer] is reviewed. PERSONAL AND SOCIAL HISTORY: The patient is a nonsmoker, nondrinker. He smoked for 1 or 2 years in the past. FAMILY HISTORY: Significant for cardiovascular disease and cancer. PHYSICAL EXAMINATION: GENERAL: Now, the patient is lying comfortably, but he is not in acute distress. VITAL SIGNS: The blood pressure is 157/58, pulse is 75, respiration is 20, temperature 98.8, SpO2 is 91% on 3 liters nasal cannula. HEENT: Conjunctivae are pink. Sclerae are not icteric. NECK: Supple, no JVD. CHEST: There are bilateral crackles, wheeze on forceful expiration. HEART: Rhythm regular, normal sound, no murmur. ABDOMEN: Soft, bowel sounds present. No hepatosplenomegaly. RECTAL: Deferred. EXTREMITIES: No cyanosis, no clubbing, no pedal edema. CONSULT REPORT [id number] WILEY HERNANDEZ SKIN: Warm, normal turgor. CENTRAL NERVOUS SYSTEM: The patient is awake and alert. There is no obvious cranial nerve abnormality. The gait was not tested. CHEST RADIOGRAPH: There are bilateral infiltrate. OTHER LABORATORY DATA: CBC: WBC is 7.9, hemoglobin 9.7, hematocrit 29.8, the platelet count is 125. Chemistry: Sodium is 136, potassium 3.4. IMPRESSION: 1. Qbamf-hr-vzveyqc hypoxic respiratory failure. 2. Bilateral pneumonia, most likely hospital-acquired pneumonia with recent hospitalization. 3. Hypokalemia. 4. History of pulmonary embolism and deep venous thrombosis. 5. History of carcinoma of colon. 6. Coronary artery disease. 7. History of gastrointestinal bleed. RECOMMENDATIONS: 1. Continue Zosyn. I will add Levaquin. I will discontinue Rocephin. 2. Check proBNP. 3. Supplemental oxygen and will follow up labs and chest radiograph. Dr. Linton, thank you for involving me in the care of Mr. Hernandez. TRANSINT:[id number] Voice Confirmation ID: [id number] DOCUMENT ID: [id number] KIYA STEWARD MD CC: [id number] DICTATION DATE: 06/22/181716 CONCRETE MIXER LOADER TRUCK MOUNTED: 06/22/182126 ADM IN [facility] [address] [place] [id number]
[~2018-06-21 17:20] MED LIST changes: -AUGMENTIN 875-11 TAB PO; -LASIX40 MG PO; -TESSALON PERLE100 MG PO
[2018-06-21 18:04] LABS: BASOPHILS 0.1 % (0-2); EOSINOPHILS 0.9 % (0-7); HEMATOCRIT 30.4 % (42.0-54.0); IMMATURE GRANULOCYTES 0.3 % (0-5); LYMPHOCYTES 5.1 % (15-50); MCH 28.6 pg (26.0-34.0); MCHC 32.9 g/dL (31.0-37.0); MCV 86.9 fL (80.0-100.0); MEAN PLATELET VOLUME 9.6 fL (7.4-10.4); MONOCYTES 10.1 % (2-11); NEUTROPHILS 83.5 % (40-80); RDW 15.6 % (11.5-14.5); WBC 7.9 10x3/uL (4.8-10.8)
[2018-06-21 18:07] LABS: PLATELET COUNT 118 10x3/uL (130-400)
[2018-06-21 18:25] LABS: ALBUMIN 2.6 g/dL (3.4-5.0); BILIRUBIN - TOTAL 1.65 mg/dL (0.2-1.3); CALCIUM 7.6 mg/dL (8.5-10.1); CARBON DIOXIDE 24.6 mmol/L (21.0-32.0); CREATININE - SERUM 1.6 mg/dL (0.6-1.3); POTASSIUM - SERUM 3.6 mmol/L (3.5-5.1); PROTEIN - SERUM 6.1 g/dL (6.4-8.2)
[2018-06-21 18:32] VITALS: BP 182/70
[2018-06-21 20:00] VITALS: BP 186/70
[2018-06-21 21:12] VITALS: BP 173/65
[2018-06-21 22:09] VITALS: BP 203/79
[2018-06-21 23:12] VITALS: BP 166/62; BMI 27.7
[2018-06-21 23:17] VITALS: BP 166/62
[2018-06-21] MEDS ORDERED: K-DUR20 MEQ PO (23:31)
[2018-06-21] MEDS ORDERED: LASIX40 MG PO (23:32)
[2018-06-21] MEDS ORDERED: TESSALON PERLE100 MG PO (23:34)
[2018-06-22 05:11] LABS: BASOPHILS 0.1 % (0-2); EOSINOPHILS 0.4 % (0-7); HEMATOCRIT 29.8 % (42.0-54.0); HEMOGLOBIN 9.7 g/dL (13.5-17.5); IMMATURE GRANULOCYTES 0.4 % (0-5); LYMPHOCYTES 2.5 % (15-50); MCH 28.3 pg (26.0-34.0); MCHC 32.6 g/dL (31.0-37.0); MCV 86.9 fL (80.0-100.0); MEAN PLATELET VOLUME 10.3 fL (7.4-10.4); MONOCYTES 7.6 % (2-11); PLATELET COUNT 125 10x3/uL (130-400); RBC 3.43 10x6/uL (4.20-6.10); RDW 16.1 % (11.5-14.5); WBC 7.9 10x3/uL (4.8-10.8)
[2018-06-22 05:54] LABS: ALBUMIN 2.3 g/dL (3.4-5.0); ANION GAP 15.3 mmol/L (8-16); BILIRUBIN - TOTAL 1.67 mg/dL (0.2-1.3); CALCIUM 7.3 mg/dL (8.5-10.1); CARBON DIOXIDE 23.1 mmol/L (21.0-32.0); CREATININE - SERUM 1.4 mg/dL (0.6-1.3); POTASSIUM - SERUM 3.4 mmol/L (3.5-5.1); PROTEIN - SERUM 5.8 g/dL (6.4-8.2)
[2018-06-22 06:25] VITALS: BP 157/58
[2018-06-22 08:55] VITALS: BP 203/75
[2018-06-22 12:48] VITALS: BP 152/66
[2018-06-22 12:52] VITALS: Ht 175.3 cm; Wt 80.9 kg
[2018-06-22 15:53] VITALS: BP 150/42
[2018-06-22 19:20] LABS: INR 2.81 (0.85-1.17); PROTIME 28.9 SECONDS (11.6-15.0)
[2018-06-22 21:20] VITALS: BP 144/46
[2018-06-23 05:51] VITALS: BP 145/53
[2018-06-23 06:00] LABS: BASOPHILS 0.2 % (0-2); EOSINOPHILS 0.9 % (0-7); HEMATOCRIT 29.6 % (42.0-54.0); HEMOGLOBIN 9.5 g/dL (13.5-17.5); IMMATURE GRANULOCYTES 0.2 % (0-5); LYMPHOCYTES 4.9 % (15-50); MCH 28.3 pg (26.0-34.0); MCHC 32.1 g/dL (31.0-37.0); MCV 88.1 fL (80.0-100.0); MEAN PLATELET VOLUME 10.6 fL (7.4-10.4); MONOCYTES 8.6 % (2-11); NEUTROPHILS 85.2 % (40-80); PLATELET COUNT 130 10x3/uL (130-400); RBC 3.36 10x6/uL (4.20-6.10)
[2018-06-23 06:15] LABS: WBC 5.5 10x3/uL (4.8-10.8)
[2018-06-23 06:28] LABS: ALBUMIN 2.4 g/dL (3.4-5.0); ANION GAP 14.7 mmol/L (8-16); BILIRUBIN - TOTAL 1.63 mg/dL (0.2-1.3); CARBON DIOXIDE 24.8 mmol/L (21.0-32.0); CREATININE - SERUM 1.3 mg/dL (0.6-1.3); MAGNESIUM - SERUM 1.4 mg/dL (1.8-2.4); POTASSIUM - SERUM 3.5 mmol/L (3.5-5.1); PROTEIN - SERUM 6.2 g/dL (6.4-8.2)
[2018-06-23 08:07] VITALS: BP 167/62
[2018-06-23 09:26] LABS: INR 2.86 (0.85-1.17); PROTIME 29.3 SECONDS (11.6-15.0)
[2018-06-23 11:02] VITALS: BP 153/53
[2018-06-23 15:56] VITALS: BP 167/57
[2018-06-23 20:00] VITALS: BP 163/58
[2018-06-24 04:56] LABS: BASOPHILS 0.3 % (0-2); EOSINOPHILS 1.5 % (0-7); HEMATOCRIT 32.6 % (42.0-54.0); HEMOGLOBIN 10.6 g/dL (13.5-17.5); IMMATURE GRANULOCYTES 0.2 % (0-5); LYMPHOCYTES 8.3 % (15-50); MCH 28.3 pg (26.0-34.0); MCHC 32.5 g/dL (31.0-37.0); MCV 86.9 fL (80.0-100.0); MEAN PLATELET VOLUME 10.4 fL (7.4-10.4); MONOCYTES 8.7 % (2-11); RBC 3.75 10x6/uL (4.20-6.10); RDW 16.1 % (11.5-14.5); WBC 6.5 10x3/uL (4.8-10.8)
[2018-06-24 04:57] LABS: PLATELET COUNT 157 10x3/uL (130-400)
[2018-06-24 05:15] LABS: INR 3.3 (0.85-1.17); PROTIME 32.8 SECONDS (11.6-15.0)
[2018-06-24 05:31] LABS: ALBUMIN 2.5 g/dL (3.4-5.0); BILIRUBIN - TOTAL 1.67 mg/dL (0.2-1.3); CALCIUM 8.4 mg/dL (8.5-10.1); CARBON DIOXIDE 27.2 mmol/L (21.0-32.0); CREATININE - SERUM 1.5 mg/dL (0.6-1.3); POTASSIUM - SERUM 3.2 mmol/L (3.5-5.1); PROTEIN - SERUM 6.7 g/dL (6.4-8.2)
[2018-06-24 07:57] VITALS: BP 174/61
[2018-06-24 11:18] VITALS: BP 168/60
[2018-06-24 15:48] VITALS: BP 153/51
[2018-06-25 04:00] VITALS: BP 149/80
[2018-06-25 04:57] LABS: BASOPHILS 0.2 % (0-2); EOSINOPHILS 2.5 % (0-7); HEMATOCRIT 30.6 % (42.0-54.0); HEMOGLOBIN 9.9 g/dL (13.5-17.5); IMMATURE GRANULOCYTES 0.2 % (0-5); LYMPHOCYTES 8.6 % (15-50); MCH 28.2 pg (26.0-34.0); MCHC 32.4 g/dL (31.0-37.0); MCV 87.2 fL (80.0-100.0); MEAN PLATELET VOLUME 10.1 fL (7.4-10.4); MONOCYTES 10.5 % (2-11); PLATELET COUNT 149 10x3/uL (130-400); RBC 3.51 10x6/uL (4.20-6.10); RDW 16.3 % (11.5-14.5)
[2018-06-25 05:05] LABS: WBC 4.7 10x3/uL (4.8-10.8)
[2018-06-25 05:07] LABS: INR 3.3 (0.85-1.17); PROTIME 32.8 SECONDS (11.6-15.0)
[2018-06-25 05:30] LABS: ANION GAP 13.7 mmol/L (8-16); CALCIUM 8.5 mg/dL (8.5-10.1); CARBON DIOXIDE 24.6 mmol/L (21.0-32.0); CREATININE - SERUM 1.5 mg/dL (0.6-1.3); MAGNESIUM - SERUM 1.5 mg/dL (1.8-2.4); POTASSIUM - SERUM 3.3 mmol/L (3.5-5.1)
[2018-06-25 08:05] VITALS: BP 158/51
[2018-06-25] MEDS ORDERED: AUGMENTIN 875-11 TAB PO (12:12)
[2018-06-25 12:30] VITALS: BP 152/56
== END 2018-06-25 15:18 | disposition home or self-care (01) | DRG 193 ==
LOC: D.ER 17:20 → D.EDHOLD 21:47 → D.M2 21:47
PROVIDERS: Family Medicine; Internal Medicine Hematology & Oncology; Internal Medicine Pulmonary Disease
DX: J18.9 Pneumonia, unspecified organism (principal); J96.21 Acute and chronic respiratory failure with hypoxia; C17.0 Malignant neoplasm of duodenum; I25.10 Atherosclerotic heart disease of native coronary artery without angina pectoris; E87.6 Hypokalemia; Z79.01 Long term (current) use of anticoagulants; D64.81 Anemia due to antineoplastic chemotherapy; I11.0 Hypertensive heart disease with heart failure; I50.9 Heart failure, unspecified; Z86.718 Personal history of other venous thrombosis and embolism; Z86.711 Personal history of pulmonary embolism

== ENCOUNTER 2018-06-26 14:22 | Inpatient (IN) | payer MEDICARE, BC ==
[~2018-06-26] VITALS: Ht 175.3 cm; Wt 80.2 kg
--- NOTE | ~2018-06-26 | EC ---
PATIENT:WILEY KOWALSKI DATE OF SERVICE: 06/26/18 SEX: M MEDICAL RECORD: [id number] DATE OF : 39 LOCATION:D.MS Rodríguez AGE OF PATIENT: 77 ADMISSION DATE: 06/26/18 REFERRING PHYSICIAN: INTERPRETING PHYSICIAN: KADEN BELLO MD ECHOCARDIOGRAM REPORT ECHO CHARGES 4 ECHO COMPLETE Date: 06/27/18 CLINICAL DIAGNOSIS: CHF ECHOCARDIOGRAPHIC MEASUREMENTS (adult normal given) AC root (d.<3.7cm) 2.1 cm LV Septum d (<1.2 cm> 1.0 cm Valve Excursion 1.0 cm LV Septum (systole) 1.0 cm Left Atria (s.<4.0cm> 5.2 cm LVPW d(<1.2cm) 1.5 cm RV (d.<2.3cm) 2.8 cm LVPW (sytole) 1.6 cm LV diastole(<5.6CM) 5.5 cm MV E-F(>70mm/sec) cm LV systole 4.6 cm LVOT Diameter 1.8 cm MV exc.(>10mm) cm Est.ejection fraction (50-75%) % DOPPLER: LVIT cm/sec A 35 cm/sec E 125 cm/sec LA cm/sec RVSP 24.3 mmHg LVOT 179 cm/sec AOP1/2T m/s Asc. Ao 221 cm/sec RVOT 101 cm/sec RA cm/sec PA 95 cm/sec AV Gradient Peak 19.5 mmHg AV Mean 9.0 mmHg AV Area 2.2 cm MV Gradient Peak 8.4 mmHg MV Mean 3.7 mmHg MV Area cm COMMENTS: Loan Secretary: [facility] Community Service Worker: 1 Dr. Bello TAPE# PACS Pericardial Effusion N DATE OF SERVICE: 06/27/2018 FINDINGS: 1. Left ventricle chamber size is within normal limits. Left ventricular systolic function is normal. Overall ejection fraction estimated at 60%. 2. The left atrium is mildly dilated at 4.02 cm. Right atrium and right ventricular chamber sizes are as well mildly dilated. 3. Valvular structures have normal structure and motion. 4. Doppler interrogation reveals only trace tricuspid regurgitation. No other valvular insufficiency or stenosis. Pulmonary systolic pressure is estimated at ECHOCARDIOGRAM REPORT [id number] WILEY KOWALSKI 24 mmHg. 5. No evidence of pericardial effusion or left ventricular thrombus. TRANSINT:[id number] Voice Confirmation ID: [id number] DOCUMENT ID: [id number] KADEN BELLO MD at 1823 CC: [id number] DICTATION DATE: 06/27/18 1059 MAKE UP ARTIST: 06/27/18 1135 ADM IN [facility] [address] [place] [address]
--- NOTE | ~2018-06-26 | CN ---
PATIENT NAME:WILEY HERNANDEZ MEDICAL RECORD: [id number] : 38 LOCATION:D.MS [facility]32 ADMIT DATE: 06/26/18 ACCOUNT: [id number] CONSULTING PHYSICIAN: KIYA STEWARD MD REFERRING PHYSICIAN: KAITLIN LINTON DO DATE OF CONSULTATION: 06/27/2018 CONSULT REQUESTING PHYSICIAN: Dr. Linton. REASON FOR CONSULTATION: Bilateral pneumonia, pulmonary edema. HISTORY OF PRESENT ILLNESS: Mr. Hernandez is a 77-year-old gentleman who was initially admitted on 06/22/2018. While in the hospital, he developed pulmonary edema and worsening shortness of breath along with pneumonia. The patient was diuresed yesterday, he felt better and the patient was discharged home. On arrival to the home, the patient has worsening shortness of breath with mild exertion. He was coughing without significant sputum production. There were orthopnea, PND. There is no yellow or green color sputum production. The patient came into the ER. Evaluation found out the patient with bilateral pleural effusion, infiltrate and edema. REVIEW OF SYSTEMS: As in history of present illness. PAST MEDICAL HISTORY: 1. History of CA of the colon. 2. Coronary artery disease. 3. Hypertension. 4. History of pulmonary embolism. 5. History of deep venous thrombosis. 6. History of gastrointestinal bleed in the past. PAST SURGICAL HISTORY: 1. Status post CABG. 2. Herniorrhaphy. 3. Bilateral knee replacement. 4. Cataract surgery. ALLERGIES: HE IS ALLERGIC TO FLOMAX AND HYTRIN. MEDICATIONS: On [employer] is reviewed. PERSONAL AND SOCIAL HISTORY: The patient is a nonsmoker, nondrinker. FAMILY HISTORY: Noncontributory. PHYSICAL EXAMINATION: GENERAL: Now, the patient is lying comfortably in bed. He is not in acute distress. VITAL SIGNS: The blood pressure is 157/44, pulse is 62, respiration is 18, temperature is 98, SpO2 is 94% on 3 liters nasal cannula. HEENT: Conjunctivae are pink. Sclerae are not icteric. NECK: The neck is supple, no JVD. CHEST: The chest excursion is minimal on both sides with bilateral crackles. No wheezing. HEART: Rhythm regular, normal sound, no murmur. CONSULT REPORT [id number] WILEY HERNANDEZ ABDOMEN: The abdomen is soft, bowel sounds present. No hepatosplenomegaly. RECTAL: Deferred. EXTREMITIES: No cyanosis, no clubbing. There is 1+ pedal edema. SKIN: The skin is warm, normal turgor. CENTRAL NERVOUS SYSTEM: The patient is awake and alert. There are no obvious cranial nerve abnormality. The gait is normal. CHEST RADIOGRAPH: There is pulmonary edema. There is bibasilar infiltrate. There are bilateral pleural effusions. OTHER LABORATORY DATA: CBC: WBC 4.9, hemoglobin 10.2, hematocrit 32.2, the platelet count is 198. Chemistry: Sodium 143, potassium 3.3, BUN is 18, creatinine 1.3. IMPRESSION: 1. Acute hypoxic respiratory failure. 2. Pulmonary edema. 3. Congestive heart failure with chronic diastolic dysfunction with EF of 60% on 06/26/2018. 4. Pneumonia, bilateral, most likely hospital-acquired pneumonia with recent hospitalization. 5. Bilateral pleural effusion secondary to congestive heart failure. 6. Hypokalemia. RECOMMENDATION: 1. Start on vancomycin, Levaquin and cefepime to cover for hospital-acquired pneumonia. 2. Continue Lasix. 3. Supplemental oxygen. 4. Electrolyte replacement. 5. Follow up labs and chest radiograph. Cardiology has been consulted. Dr. Linton, thank you for involving me in the care of Mr. Hernandez. TRANSINT:[id number] Voice Confirmation ID: [id number] DOCUMENT ID: [id number] KIYA STEWARD MD at 1301 CC: [id number] DICTATION DATE: 06/27/18 1535 REHAB DEPARTMENT MANAGER: 06/27/18 1606 DIS IN 07/03/18 [place] [id number]
--- NOTE | ~2018-06-26 | CN ---
PATIENT NAME:WILEY KOWALSKI MEDICAL RECORD: [id number] : 38 LOCATION:D.MS [facility]2232 ADMIT DATE: 06/26/18 ACCOUNT: [id number] CONSULTING PHYSICIAN: KADEN COA MD REFERRING PHYSICIAN: KAITLIN LINTON DO DATE OF CONSULTATION: 06/27/2018 DIAGNOSES: 1. Shortness of breath. 2. Pneumonia. 3. History of deep venous thrombosis and pulmonary embolism. 4. Coronary artery disease. 5. Status post coronary bypass graft surgery. 6. Aortic valve replacement for aortic stenosis. 7. Hypertension. 8. Coumadin anticoagulation. 9. Paroxysmal atrial fibrillation, controlled, in sinus rhythm, on Cordarone. HISTORY OF PRESENT ILLNESS: This is a gentleman, who presents with increasing shortness of breath. He had complicated few months. He presented with anginal symptomatology and shortness of breath in April. He was found to have significant aortic stenosis as well as coronary artery disease. He underwent coronary bypass graft surgery, single vessel, ARGUELLES to LAD and aortic valve replacement. He then developed hospital-acquired pneumonia. He as well developed DVT and pulmonary embolus. He has had episodes of shortness of breath since. His ejection fraction is normal at 60%. Last echo showed normal function of the valve as well. He re-presents with shortness of breath. He has been treated for pneumonia. PHYSICAL EXAMINATION: GENERAL APPEARANCE: Well-nourished, well-developed, appears stated age. Level of distress, comfortable. PSYCHIATRIC: Mental status, alert, normal affect. Orientation, oriented to time, place and person. EYES: Lids and conjunctiva, noninjected. No discharge, no pallor. ENT: Lips, teeth, gums, normal dentition. Oropharynx, no cyanosis, no pallor. NECK: Carotid arteries, bilateral normal upstroke, no bruits, no thrills. JUGULAR VEINS: No jugular venous pressure or distention. CERVICAL LYMPH NODES: Nontender, nonenlarged. THYROID: Not enlarged. Nontender. No nodules. LUNGS: Respiratory effort, unlabored. CHEST: Normal curvature. No thoracic deformity. No chest wall tenderness. Percussion, resonant. Auscultation, clear. No wheezes, no rales, no rhonchi. CARDIOVASCULAR: Precordial exam, nondisplaced. No heaves or pericardial thrills. Rate and rhythm, regular. Heart sounds, normal S1, normal S2. No S3, no gallop, no rub. Systolic murmur, not heard. Diastolic murmur, not heard. EXTREMITIES: No cyanosis, no edema. Peripheral pulses, full and equal in all extremities, except as noted. No bruits appreciated. ABDOMEN: Soft, nondistended. Normal aorta. No bruit. Nontender. No masses. Liver, nontender, no hepatomegaly. Spleen, nontender, no splenomegaly. MUSCULOSKELETAL: No joint tenderness. No joint swelling. No erythema. NEUROLOGICAL: Normal gait, normal strength, normal tone. SKIN: Warm and dry. OVERALL IMPRESSION: Shortness of breath. This most likely is not congestive CONSULT REPORT [id number] WILEY KOWALSKI heart failure. We will repeat the echocardiogram at this time to make sure the ejection fraction remains normal and the valve remains functional. Most likely this is continued lung disease from the pneumonia and PE and noncardiac as primary cause. Other than echo, no other cardiac workup or treatment is necessary. TRANSINT:[id number] Voice Confirmation ID: [id number] DOCUMENT ID: [id number] KADEN CAO MD at 1823 CC: [id number] DICTATION DATE: 06/27/18 1025 CUSTOMER MARKETING ASSISTANT: 06/27/18 1050 ADM IN [place] [address] [place] [address]
[~2018-06-26 14:22] MED LIST changes: +AUGMENTIN 875-11 TAB PO; +LASIX40 MG PO; +TESSALON PERLE100 MG PO
[2018-06-26 15:02] LABS: BASOPHILS 0.3 % (0-2); EOSINOPHILS 3.9 % (0-7); HEMATOCRIT 34.8 % (42.0-54.0); HEMOGLOBIN 11.2 g/dL (13.5-17.5); IMMATURE GRANULOCYTES 0.6 % (0-5); LYMPHOCYTES 9.9 % (15-50); MCH 28.2 pg (26.0-34.0); MCHC 32.2 g/dL (31.0-37.0); MCV 87.7 fL (80.0-100.0); MEAN PLATELET VOLUME 10.5 fL (7.4-10.4); MONOCYTES 4.8 % (2-11); NEUTROPHILS 80.5 % (40-80); RBC 3.97 10x6/uL (4.20-6.10); RDW 16.5 % (11.5-14.5)
[2018-06-26 15:14] LABS: PLATELET COUNT 213 10x3/uL (130-400); WBC 7.8 10x3/uL (4.8-10.8)
[2018-06-26 15:15] LABS: INR 2.74 (0.85-1.17); PROTIME 28.3 SECONDS (11.6-15.0)
[2018-06-26 15:20] LABS: ALBUMIN 2.7 g/dL (3.4-5.0); BILIRUBIN - TOTAL 1.21 mg/dL (0.2-1.3); CALCIUM 8.6 mg/dL (8.5-10.1); CARBON DIOXIDE 25.3 mmol/L (21.0-32.0); CREATININE - SERUM 1.4 mg/dL (0.6-1.3); POTASSIUM - SERUM 3.3 mmol/L (3.5-5.1); PROTEIN - SERUM 6.7 g/dL (6.4-8.2)
[2018-06-26 18:53] VITALS: BP 145/70
[2018-06-26 22:31] VITALS: BP 151/44
[2018-06-26 23:10] VITALS: BP 157/44; BMI 26.4
[2018-06-27 04:00] VITALS: BP 163/51
[2018-06-27 04:44] LABS: BASOPHILS 0.2 % (0-2); EOSINOPHILS 7.1 % (0-7); HEMATOCRIT 32.2 % (42.0-54.0); HEMOGLOBIN 10.2 g/dL (13.5-17.5); IMMATURE GRANULOCYTES 0.8 % (0-5); LYMPHOCYTES 7.8 % (15-50); MCH 27.6 pg (26.0-34.0); MCHC 31.7 g/dL (31.0-37.0); MCV 87.3 fL (80.0-100.0); MEAN PLATELET VOLUME 9.7 fL (7.4-10.4); MONOCYTES 13.9 % (2-11); NEUTROPHILS 70.2 % (40-80); PLATELET COUNT 198 10x3/uL (130-400); RBC 3.69 10x6/uL (4.20-6.10); RDW 16.6 % (11.5-14.5)
[2018-06-27 04:53] LABS: INR 3.01 (0.85-1.17); PROTIME 30.5 SECONDS (11.6-15.0)
[2018-06-27 04:57] LABS: WBC 4.9 10x3/uL (4.8-10.8)
[2018-06-27 05:08] LABS: ALBUMIN 2.3 g/dL (3.4-5.0); ANION GAP 11.4 mmol/L (8-16); BILIRUBIN - TOTAL 0.89 mg/dL (0.2-1.3); CALCIUM 8.3 mg/dL (8.5-10.1); CARBON DIOXIDE 28.9 mmol/L (21.0-32.0); CREATININE - SERUM 1.3 mg/dL (0.6-1.3); MAGNESIUM - SERUM 1.5 mg/dL (1.8-2.4); POTASSIUM - SERUM 3.3 mmol/L (3.5-5.1); PROTEIN - SERUM 5.9 g/dL (6.4-8.2)
[2018-06-27 09:13] VITALS: BP 180/54
[2018-06-27 15:11] VITALS: Ht 175.3 cm; Wt 80.2 kg
[2018-06-27 15:49] LABS: MAGNESIUM - SERUM 1.5 mg/dL (1.8-2.4)
[2018-06-27 17:18] VITALS: BP 114/51
[2018-06-27 20:00] VITALS: BP 159/53
[2018-06-27 20:22] LABS: APPEARANCE CLEAR (CLEAR); BILIRUBIN NEGATIVE (NEGATIVE); COLOR DK YELLOW (YELLOW); GLUCOSE 50 mg/dL (NEGATIVE); KETONE NEGATIVE (NEGATIVE); NITRITE NEGATIVE (NEGATIVE); PROTEIN 2+ mg/dL (NEGATIVE); UROBILINOGEN NORMAL (NORMAL)
[2018-06-27 20:24] LABS: BACTERIA FEW /hpf (NONE SEEN); RED CELLS - URINE 0-5 /hpf (0-5); WHITE CELLS - URINE 0-5 /hpf (0-5)
[2018-06-28 04:00] VITALS: BP 152/43
[2018-06-28 06:21] LABS: BASOPHILS 0.2 % (0-2); EOSINOPHILS 8.5 % (0-7); HEMATOCRIT 33.1 % (42.0-54.0); HEMOGLOBIN 10.5 g/dL (13.5-17.5); IMMATURE GRANULOCYTES 1.6 % (0-5); LYMPHOCYTES 8.7 % (15-50); MCH 27.9 pg (26.0-34.0); MCHC 31.7 g/dL (31.0-37.0); MCV 87.8 fL (80.0-100.0); MONOCYTES 19.2 % (2-11); NEUTROPHILS 61.8 % (40-80); PLATELET COUNT 216 10x3/uL (130-400); RBC 3.77 10x6/uL (4.20-6.10); RDW 16.7 % (11.5-14.5); WBC 4.5 10x3/uL (4.8-10.8)
[2018-06-28 06:36] LABS: INR 2.97 (0.85-1.17); PROTIME 30.2 SECONDS (11.6-15.0)
[2018-06-28 06:58] LABS: ANION GAP 7.9 mmol/L (8-16); CALCIUM 8.2 mg/dL (8.5-10.1); CREATININE - SERUM 1.2 mg/dL (0.6-1.3); MAGNESIUM - SERUM 1.4 mg/dL (1.8-2.4); POTASSIUM - SERUM 3.9 mmol/L (3.5-5.1)
[2018-06-28 09:10] VITALS: BP 157/48
[2018-06-28 20:23] VITALS: BP 146/65
[2018-06-29 04:00] VITALS: BP 142/82
[2018-06-29 04:13] LABS: BASOPHILS 0.2 % (0-2); EOSINOPHILS 8.9 % (0-7); HEMATOCRIT 33.1 % (42.0-54.0); HEMOGLOBIN 10.5 g/dL (13.5-17.5); IMMATURE GRANULOCYTES 2.2 % (0-5); LYMPHOCYTES 11.5 % (15-50); MCH 27.8 pg (26.0-34.0); MCHC 31.7 g/dL (31.0-37.0); MCV 87.6 fL (80.0-100.0); MEAN PLATELET VOLUME 9.7 fL (7.4-10.4); MONOCYTES 21.8 % (2-11); NEUTROPHILS 55.4 % (40-80); PLATELET COUNT 229 10x3/uL (130-400); RBC 3.78 10x6/uL (4.20-6.10); RDW 16.6 % (11.5-14.5); WBC 4.2 10x3/uL (4.8-10.8)
[2018-06-29 04:19] LABS: INR 2.95 (0.85-1.17)
[2018-06-29 04:34] LABS: ANION GAP 11.2 mmol/L (8-16); CALCIUM 8.4 mg/dL (8.5-10.1); CARBON DIOXIDE 28.7 mmol/L (21.0-32.0); CREATININE - SERUM 1.1 mg/dL (0.6-1.3); MAGNESIUM - SERUM 1.5 mg/dL (1.8-2.4); POTASSIUM - SERUM 3.9 mmol/L (3.5-5.1)
[2018-06-29 08:08] VITALS: BP 157/46
[2018-06-29 13:40] VITALS: BP 146/61
[2018-06-29 16:41] VITALS: BP 165/53
[2018-06-29 20:00] VITALS: BP 162/51
[2018-06-30 04:50] LABS: HEMATOCRIT 32.3 % (42.0-54.0); HEMOGLOBIN 10.3 g/dL (13.5-17.5); MCH 27.8 pg (26.0-34.0); MCHC 31.9 g/dL (31.0-37.0); MCV 87.3 fL (80.0-100.0); MEAN PLATELET VOLUME 9.9 fL (7.4-10.4); PLATELET COUNT 221 10x3/uL (130-400); RDW 16.5 % (11.5-14.5); WBC 4.3 10x3/uL (4.8-10.8)
[2018-06-30 04:58] VITALS: BP 147/53
[2018-06-30 05:18] LABS: ALBUMIN 2.3 g/dL (3.4-5.0); ANION GAP 11.6 mmol/L (8-16); BILIRUBIN - TOTAL 0.69 mg/dL (0.2-1.3); CALCIUM 8.4 mg/dL (8.5-10.1); CARBON DIOXIDE 28.7 mmol/L (21.0-32.0); CREATININE - SERUM 1.3 mg/dL (0.6-1.3); PHOSPHOROUS 3.2 mg/dL (2.5-4.9); POTASSIUM - SERUM 4.3 mmol/L (3.5-5.1); PROTEIN - SERUM 5.6 g/dL (6.4-8.2)
[2018-06-30 05:23] LABS: BASOPHILS 1 % (0-2); EOSINOPHILS 6 % (0-7); LYMPHOCYTES 13 % (15-50); MONOCYTES 18 % (2-11); NEUTROPHILS 59 % (40-80); PLATELET ESTIMATE NORMAL
[2018-06-30 05:26] LABS: MAGNESIUM - SERUM 2.1 mg/dL (1.8-2.4)
[2018-06-30 09:13] VITALS: BP 152/55
[2018-06-30 12:28] VITALS: BP 153/52
[2018-06-30 16:06] VITALS: BP 145/47
[2018-06-30 19:27] VITALS: BP 150/48
[2018-07-01 04:00] VITALS: BP 154/55
[2018-07-01 05:21] LABS: BASOPHILS 0.5 % (0-2); EOSINOPHILS 4.3 % (0-7); HEMATOCRIT 31.6 % (42.0-54.0); HEMOGLOBIN 10.1 g/dL (13.5-17.5); IMMATURE GRANULOCYTES 6.8 % (0-5); LYMPHOCYTES 15.7 % (15-50); MCH 27.7 pg (26.0-34.0); MCV 86.6 fL (80.0-100.0); MEAN PLATELET VOLUME 9.9 fL (7.4-10.4); MONOCYTES 20.5 % (2-11); NEUTROPHILS 52.2 % (40-80); PLATELET COUNT 216 10x3/uL (130-400); RBC 3.65 10x6/uL (4.20-6.10); RDW 16.2 % (11.5-14.5); WBC 4.1 10x3/uL (4.8-10.8)
[2018-07-01 05:34] LABS: ANION GAP 8.8 mmol/L (8-16); CARBON DIOXIDE 31.2 mmol/L (21.0-32.0); CREATININE - SERUM 1.2 mg/dL (0.6-1.3); MAGNESIUM - SERUM 1.7 mg/dL (1.8-2.4); PHOSPHOROUS 3.4 mg/dL (2.5-4.9)
[2018-07-01 09:13] VITALS: BP 160/53
[2018-07-01 11:40] VITALS: BP 163/97
[2018-07-01 16:45] VITALS: BP 141/48
[2018-07-02 04:00] VITALS: BP 152/50
[2018-07-02 05:49] LABS: INR 3.64 (0.85-1.17); PROTIME 35.4 SECONDS (11.6-15.0)
[2018-07-02 05:55] LABS: BASOPHILS 0.7 % (0-2); EOSINOPHILS 3.9 % (0-7); HEMOGLOBIN 10.5 g/dL (13.5-17.5); IMMATURE GRANULOCYTES 7.4 % (0-5); LYMPHOCYTES 15.7 % (15-50); MCH 27.6 pg (26.0-34.0); MCHC 31.8 g/dL (31.0-37.0); MCV 86.8 fL (80.0-100.0); MEAN PLATELET VOLUME 9.7 fL (7.4-10.4); MONOCYTES 19.7 % (2-11); NEUTROPHILS 52.6 % (40-80); PLATELET COUNT 207 10x3/uL (130-400); RDW 16.1 % (11.5-14.5); WBC 4.3 10x3/uL (4.8-10.8)
[2018-07-02 06:19] LABS: ANION GAP 9.8 mmol/L (8-16); CALCIUM 8.5 mg/dL (8.5-10.1); CARBON DIOXIDE 30.1 mmol/L (21.0-32.0); CREATININE - SERUM 1.4 mg/dL (0.6-1.3); POTASSIUM - SERUM 3.9 mmol/L (3.5-5.1); VANCOMYCIN - TROUGH 21.6 ug/mL (10.0-20.0)
[2018-07-02 09:20] VITALS: BP 153/47
[2018-07-02 14:08] VITALS: BP 154/48
[2018-07-03 04:00] VITALS: BP 98/47
[2018-07-03 05:49] LABS: ANION GAP 9.6 mmol/L (8-16); CALCIUM 8.5 mg/dL (8.5-10.1); CARBON DIOXIDE 29.4 mmol/L (21.0-32.0); CREATININE - SERUM 1.3 mg/dL (0.6-1.3)
[2018-07-03 06:12] LABS: INR 3.28 (0.85-1.17); PROTIME 32.6 SECONDS (11.6-15.0)
[2018-07-03 08:15] VITALS: BP 176/49
[2018-07-03] MEDS ORDERED: COZAAR50 MG PO (12:45)
[2018-07-03] MEDS ORDERED: OMNICEF300 MG PO (12:48)
[2018-07-03 13:20] VITALS: BP 139/65
== END 2018-07-03 15:33 | disposition home health service (06) | DRG 291 ==
LOC: D.ER 14:22 → D.MS 18:21
PROVIDERS: Family Medicine; Internal Medicine Pulmonary Disease
DX: I50.33 Acute on chronic diastolic (congestive) heart failure (principal); J96.01 Acute respiratory failure with hypoxia; C17.0 Malignant neoplasm of duodenum; I11.0 Hypertensive heart disease with heart failure; I48.0 Paroxysmal atrial fibrillation; Z79.01 Long term (current) use of anticoagulants; E11.9 Type 2 diabetes mellitus without complications; Z79.4 Long term (current) use of insulin; E87.6 Hypokalemia; Z95.1 Presence of aortocoronary bypass graft

== ENCOUNTER 2018-12-16 12:48 | Inpatient (IN) | payer MEDICARE, BC ==
[~2018-12-16] VITALS: Ht 175.3 cm; Wt 84.1 kg
[~2018-12-16 12:48] MED LIST changes: +AMIODARONE HCL200 MG PO; +COZAAR50 MG PO; +NOVOLIN 70/30 110 ML SC; -NOVOLIN N100 U/ML SQ; +OMNICEF300 MG PO
--- NOTE | 2018-12-16 13:14 | NUR ---
NEW ADMIT TRANSFERED FROM ADMISSIONS. OREINTED TO ROOM. CALL LIGHT IN REACH. WILL CONT. PLAN OF CARE.
[2018-12-16 13:47] VITALS: BP 170/58; BMI 27.9
[2018-12-16 14:39] LABS: HEMATOCRIT 37.9 % (42.0-54.0); HEMOGLOBIN 12.4 g/dL (13.5-17.5); MCH 32.1 pg (26.0-34.0); MCHC 32.7 g/dL (31.0-37.0); MCV 98.2 fL (80.0-100.0); MEAN PLATELET VOLUME 10.1 fL (7.4-10.4); PLATELET COUNT 255 10x3/uL (130-400); RBC 3.86 10x6/uL (4.20-6.10); RDW 17.9 % (11.5-14.5); WBC 9.3 10x3/uL (4.8-10.8)
[2018-12-16 14:54] LABS: APTT 31.2 SECONDS (22.8-39.4); INR 1.21 (0.85-1.17); PROTIME 14.8 SECONDS (11.6-15.0)
[2018-12-16 14:55] LABS: D-DIMER-QUANTITATIVE 1.85 ug/mLFEU (0.20-0.54)
[2018-12-16 14:57] LABS: ALBUMIN 2.9 g/dL (3.4-5.0); ANION GAP 12.6 mmol/L (8-16); BILIRUBIN - TOTAL 0.94 mg/dL (0.2-1.3); CALCIUM 8.6 mg/dL (8.5-10.1); CARBON DIOXIDE 31.3 mmol/L (21.0-32.0); CREATININE - SERUM 1.2 mg/dL (0.6-1.3); POTASSIUM - SERUM 3.9 mmol/L (3.5-5.1); PROTEIN - SERUM 6.3 g/dL (6.4-8.2)
[2018-12-16 15:06] LABS: T4 THYROXIN - FREE 0.56 ng/dL (0.76-1.46)
[2018-12-16 15:11] LABS: THYROID STIMULATING HORMONE 78.01 uIU/mL (0.36-3.74)
[2018-12-16 15:24] VITALS: BP 162/53
--- NOTE | 2018-12-16 16:03 | NUR ---
CONSENTS SIGNED FOR THORACENTESIS. URINE SPECIMEN COLLECTED AND TAKEN TO LAB. WILL MONITOR.
[2018-12-16 17:59] LABS: APPEARANCE CLEAR (CLEAR); BILIRUBIN NEGATIVE (NEGATIVE); COLOR YELLOW (YELLOW); GLUCOSE NEGATIVE (NEGATIVE); KETONE NEGATIVE (NEGATIVE); NITRITE NEGATIVE (NEGATIVE); PROTEIN TRACE mg/dL (NEGATIVE); UROBILINOGEN NORMAL (NORMAL)
[2018-12-16 18:00] LABS: EOSINOPHILS 8 % (0-7); LYMPHOCYTES 8 % (15-50); MONOCYTES 4 % (2-11); NEUTROPHILS 80 % (40-80); PLATELET ESTIMATE NORMAL
--- NOTE | 2018-12-16 19:35 | NUR ---
RESUMING PATIENT CARE. PATIENT IS ALERT AND ORIENTED, SITTING UP IN BED. RESPIRATIONS ARE EVEN AND UNLABORED. ALL NEEDS MET. PATIENT EXPRESSED TO ME THAT HIS DAUGHTER IN THAT LIVES IN [place] IS ABLE TO RECEIVE INFORMATION REGARDING HIM. PATIENT SET UP A PASSWORD WHICH IS PJM. PATIENT REMAINS ON 2L NC. CALL LIGHT WITHIN REACH. NO S/S OF DISTRESS. NO C/O PAIN. WILL CPOC.
[2018-12-17] VITALS (11 sets, daily range): BP systolic 130–170; BP diastolic 49–70; Ht 175.3 cm; Wt 84.1 kg
[2018-12-17 05:23] LABS: BASOPHILS 0.7 % (0-2); EOSINOPHILS 8.9 % (0-7); HEMATOCRIT 33.8 % (42.0-54.0); HEMOGLOBIN 11.2 g/dL (13.5-17.5); IMMATURE GRANULOCYTES 1.4 % (0-5); LYMPHOCYTES 9.3 % (15-50); MCH 32.3 pg (26.0-34.0); MCHC 33.1 g/dL (31.0-37.0); MCV 97.4 fL (80.0-100.0); MEAN PLATELET VOLUME 10.4 fL (7.4-10.4); MONOCYTES 8.2 % (2-11); NEUTROPHILS 71.5 % (40-80); PLATELET COUNT 250 10x3/uL (130-400); RBC 3.47 10x6/uL (4.20-6.10); RDW 17.9 % (11.5-14.5); WBC 8.7 10x3/uL (4.8-10.8)
[2018-12-17 05:28] LABS: APTT 33.9 SECONDS (22.8-39.4); INR 1.26 (0.85-1.17); PROTIME 15.3 SECONDS (11.6-15.0)
[2018-12-17 05:30] LABS: CALCIUM 8.2 mg/dL (8.5-10.1); CARBON DIOXIDE 30.5 mmol/L (21.0-32.0); CREATININE - SERUM 1.2 mg/dL (0.6-1.3); MAGNESIUM - SERUM 1.7 mg/dL (1.8-2.4); POTASSIUM - SERUM 3.5 mmol/L (3.5-5.1); T4 THYROXINE 5.8 ug/dL (4.7-13.3)
--- NOTE | 2018-12-17 07:30 | NUR ---
RECEIVED PT SITTING IN CHAIR RESP SL SOB DENIES ANY NEEDS AT THIS TIME NPO AWAITING THORCENTISES
--- NOTE | 2018-12-17 11:30 | NUR ---
PT TO SPECIALS FOR PROCEDURE VIA BED AT THIS TIME
--- NOTE | 2018-12-17 12:45 | NUR ---
RECEIVED PT BACK TO ROOM VIA BED FROM PROCEDURE AAOX4 RESP UNLABORED VSS WILL CONTINUE TO MONITOR
--- NOTE | 2018-12-17 14:23 | NUR ---
REVIEWED DISCHARGE INSTRUCTIONS WITH PT AND BOTH STATE UNDERSTANDING COPY GIVEN DCD SALINE LOCK TO RFA WITH IV CATHETER INTACT SITE FREE OF REDNESS OR EDEMA PT DISCHARGED HOME IN STABLE CONDITION WITH ALL PERSONAL BELONGINGS
--- NOTE | 2018-12-17 15:36 | NUR ---
REFUSED SCD'S. UP AD LUKE
[2018-12-17] MEDS ORDERED: COUMADIN4 MG PO (16:40)
[2018-12-17] MEDS ORDERED: HUMULIN N100 U/ML SC (16:40)
--- NOTE | 2018-12-17 17:14 | NUR ---
FSBS 339 REGULAR INSULIN 12 UNITS GIVEN SQ RT ARM
--- NOTE | 2018-12-17 19:45 | NUR ---
RESUMED CARE OF PT, LYING IN BED RESPIRATIONS EVEN AND UNLABORED ON 2LPM VIA NC. 58 SB ON TELEMETRY. RIGHT INFUSAPORT NS @ 50. CALL LIGHT IN REACH. SEE NURSE ASSESSMENT.
[2018-12-18] VITALS: BP 135/51
[2018-12-18 04:00] VITALS: BP 149/57
[2018-12-18 06:50] LABS: ANION GAP 7.3 mmol/L (8-16); CARBON DIOXIDE 31.9 mmol/L (21.0-32.0); CREATININE - SERUM 1.3 mg/dL (0.6-1.3); PHOSPHOROUS 3.7 mg/dL (2.5-4.9); POTASSIUM - SERUM 3.2 mmol/L (3.5-5.1)
[2018-12-18 06:59] LABS: BASOPHILS 0.5 % (0-2); EOSINOPHILS 8.9 % (0-7); HEMATOCRIT 33.6 % (42.0-54.0); HEMOGLOBIN 11.1 g/dL (13.5-17.5); IMMATURE GRANULOCYTES 1.8 % (0-5); MCH 32.5 pg (26.0-34.0); MCV 98.2 fL (80.0-100.0); MONOCYTES 9.3 % (2-11); NEUTROPHILS 70.5 % (40-80); PLATELET COUNT 235 10x3/uL (130-400); RBC 3.42 10x6/uL (4.20-6.10); RDW 17.6 % (11.5-14.5); WBC 7.9 10x3/uL (4.8-10.8)
--- NOTE | 2018-12-18 07:30 | NUR ---
RECEIVED PT IN BED AAOX4 RESP UNLABORED SKIN W/D DRSG C/D/I TO RT BACK O2 ON 2LPM NC PT DENIES ANY NEEDS OR DISCOMFORT NAD NOTED
[2018-12-18 08:13] VITALS: BP 129/64
--- NOTE | 2018-12-18 09:53 | MORECARE ---
CASE MANAGEMENT DISCHARGE SUMMARY PATIENT: WILEY KOWALSKI UNIT: [id number] ADM DATE: 12/16/18 AGE: 78 : 39 SEX: M ROOM/BED: D.2119 AUTHOR: WILLIAM CHAVEZ PHYSICIAN: REFERRING PHYSICIAN: SYEDA HOUSER MD DATE OF SERVICE: 12/18/18 Discharge Plan Patient Name: WILEY KOWALSKI [facility] [facility] 1940 Planned Disposition: Home Anticipated Discharge Date: Discharge Date: Expected LOS: Initial Reviewer: [email or web address] Initial Review Date: 12/18/2018 Generated: 12/18/18 10:53 am Patient Name: WILEY KOWALSKI Page [id number] at 0953 All edits/amendments must be made on the electronic document DICTATION DATE: 12/18/1853 WIRE CHIEF: MANNY 12/18/1853 RPT#: [id number] DC DATE: STATUS: ADM IN [facility] [address] [place] [address] END OF REPORT
--- NOTE | 2018-12-18 10:04 | MORECARE ---
CASE MANAGEMENT DISCHARGE SUMMARY PATIENT: WILEY KOWALSKI UNIT: [id number] ADM DATE: 12/16/18 AGE: 78 : 39 SEX: M ROOM/BED: D.2119 AUTHOR: WILLIAM CHAVEZ PHYSICIAN: REFERRING PHYSICIAN: SYEDA HOUSER MD DATE OF SERVICE: 12/18/18 Discharge Plan Patient Name: WILEY KOWALSKI [facility] [facility] 1940 Planned Disposition: Home Anticipated Discharge Date: Discharge Date: Expected LOS: Initial Reviewer: [email or web address] Initial Review Date: 12/18/2018 Generated: 12/18/18 11:03 am DCPIA - Discharge Planning Initial Assessment Updated by [email or web address]: Magda Bashir on 12/18/18 9:55 am * Is the patient Alert and Oriented? Yes * How many steps to enter\exit or inside your home? * PCP DR LINTON * Pharmacy [facility] [address] * Preadmission Environment Home with Family * ADLs Independent * Equipment Cane Glucometer Oxygen Rolling Walker Walker Wheelchair * List name and contact numbers for known caregivers / representatives who currently or will assist patient after discharge: LUIS FELIPE LITTLE, SPOUSE, TIFFANIE KENT, DAUGHTER, * Verbal permission to speak to the caregivers and representatives has been obtained from the patient. Yes * Community resources currently utilized None * Additional services required to return to the preadmission environment? No * Can the patient safely return to the preadmission environment? Yes * Has this patient been hospitalized within the prior 30 days at any hospital? Yes Last DP export: 12/18/18 8:53 a Patient Name: WILEY KOWALSKI Page [phone] at 1004 All edits/amendments must be made on the electronic document DICTATION DATE: 12/18/18 100 PRESS MACHINE OPERATOR: MANNY 12/18/18 100 RPT#: [id number] DC DATE: STATUS: ADM IN [facility] [address] [place] [address] END OF REPORT
--- NOTE | 2018-12-18 10:12 | MORECARE ---
CASE MANAGEMENT DISCHARGE SUMMARY PATIENT: WILEY KOWALSKI UNIT: [id number] ADM DATE: 12/16/18 AGE: 78 : 39 SEX: M ROOM/BED: D.6971 AUTHOR: SCOTT,DOC PHYSICIAN: REFERRING PHYSICIAN: SYEDA HOUSER MD DATE OF SERVICE: 12/18/18 Discharge Plan Patient Name: WILEY KOWALSKI Facility: [facility]:[place] : 1940 Planned Disposition: Home Anticipated Discharge Date: Discharge Date: Expected LOS: Initial Reviewer: [email or web address] Initial Review Date: 12/18/2018 Generated: 12/18/18 11:12 am Comments DCP- Discharge Planning Updated by [email or web address]: Magda Bashir on 12/18/18 9:[address] Patient Name: WILEY KOWALSKI Admission Status: Elective Accout number: [id number] Admission Date: 12-16-2018 : 1940 Admission Diagnosis: Attending: SYEDA HOUSER Current LOS: 2 Anticipated DC Date: Planned Disposition: Home Primary Insurance: MEDICARE A & B Discharge Planning Comments: CM MET WITH PATIENT IN HIS ROOM TO DISCUSS DISCHARGE PLANNING NEEDS. HE STATED HIS PLANS ARE TO RETURN HOME WITH HIS SPOUSE AND HAS NO NEEDS. HE IS NOT OPEN TO HAVING HOME HEALTH, EVEN IF THE DOCTOR STATED HE NEEDS IT BECAUSE HE HAD A BAD EXPERIENCE WITH THEM THE LAST TIME THEY CAME OUT. HE STATED THAT THERE IS NOTHING THEY CAN DO FOR HIM THAT HIS CAN'T DO. HE STATED HE A GLUCOMETER, WALKER, WHEELCHAIR, CANE, AND OXYGEN BUT HE COULD NOT REMEMBER WITH WHO ([facility] PERMISSION RECEIVED TO CALL AND FIND OUT). HE STATED THE THOUGHT HE HAD A NEBULIZER BUT WASN'T SURE, AND SAID IF HE DID HE GOT IT FROM THE SAME PLACE HE GOT HIS OXYGEN. HE STATED THAT HE HAS BEEN IN THE HOSPITAL IN THE LAST 30 DAYS FOR THE SAME REASON "FLUID ON MY LUNG THAT HAS TO BE DRAINED". HE CURRENTLY DENIES ANY NEEDS. I HAVE ENCOURAGED HIM TO CALL IF HE WERE TO THINK OF ANY NEEDS, AND WE WOULD BE GLAD TO ASSIST. CALL PLACED TO OLEG @ [phone]. SPOKE WITH REPRESENTIVE WHO STATED THE PATIENT WAS A CLIENT OF THEIRS. HE HAS A HOME OXYGEN CONCENTRATOR AND A PORTABLE CONCENTRATOR. SHE STATED THAT HE DOES NOT HAVE NEBULIZER, BUT THEY WOUD BE GLAD TO ASSIST IF NEEDED. CM WILL CONTINUE TO FOLLOW. Receiving Supervisor: Magda Bashir RN DCPIA - Discharge Planning Initial Assessment Updated by [email or web address]: Magda Bashir on 12/18/18 9:55 am * Is the patient Alert and Oriented? Yes * How many steps to enter\\exit or inside your home? * PCP DR LINTON * Pharmacy [facility] [address] * Preadmission Environment Home with Family * ADLs Independent * Equipment Cane Glucometer Oxygen Rolling Walker Walker Wheelchair * List name and contact numbers for known caregivers / representatives who currently or will assist patient after discharge: LUIS FELIPE LITTLE, SPOUSE, TIFFANIE KENT, DAUGHTER, * Verbal permission to speak to the caregivers and representatives has been obtained from the patient. Yes * Community resources currently utilized None * Additional services required to return to the preadmission environment? No * Can the patient safely return to the preadmission environment? Yes * Has this patient been hospitalized within the prior 30 days at any hospital? Yes Last DP export: 12/18/18 9:03 a Patient Name: WILEY KOWALSKI Page [phone] at 1012 All edits/amendments must be made on the electronic document DICTATION DATE: 12/18/18 1011 EAR PULL MACHINE OPERATOR: MANNY 12/18/18 1011 RPT#: [id number] UT DATE: STATUS: ADM IN [facility] [address] [place] [address] END OF REPORT
[2018-12-18 11:05] VITALS: BP 131/68
--- NOTE | 2018-12-18 12:12 | NUR ---
FSBS 204 REGULAR INSULIN 8 UNITS GIVEN SQ TO ABD
--- NOTE | 2018-12-18 12:17 | CN ---
PATIENT NAME:WILEY KOWALSKI MEDICAL RECORD: [id number] : 38 LOCATION:D. D.2119 ADMIT DATE: 12/16/18 ACCOUNT: [id number] CONSULTING PHYSICIAN: JASON VILLARREAL MD REFERRING PHYSICIAN: SYEDA HOUSER MD DATE OF CONSULTATION: 12/17/2018 HISTORY OF PRESENT ILLNESS: A 78-year-old gentleman with history of aortic valve disease status post aortic valve replacement, history of atrial fibrillation and currently in sinus, found to be markedly hypothyroidism with TSH in the 80 range, still having a marked symptomology from his pleural effusion with orthopnea, PND. LV function entirely normal. His aortic valve gradient is acceptable. I think this is mostly thyroid induced effusion; however, markedly symptomatic, should be able to benefit from thoracentesis. PAST MEDICAL HISTORY: Includes; 1. History of a duodenal carcinoma. 2. Hypertension. 3. Hyperlipidemia. 4. Atrial fibrillation, currently in sinus. 5. Aortic valve disease status post aortic valve replacement. ALLERGIES: ALBUTEROL, TERAZOSIN, AND TAMSULOSIN. SOCIAL HISTORY: Nonsmoker, nondrinker. Easily takes care of his ADLs. No set exercise program. MEDICATIONS: Atenolol 100 mg p.o. daily, amlodipine 5 every day, losartan 50 every day, potassium 40 every day, insulin per scale, Glucotrol 5 every day. REVIEW OF SYSTEMS: The patient reports easy bruising but reports no swollen glands. The patient reports no fever, no night sweats, no significant weight gain, no significant weight loss. No significant exercise tolerance. The patient reports no dry eyes, no irritation, no vision change. Patient reports no difficulty hearing and no ear pain. Patient reports no frequent nose bleeds or nose and sinus problems. Patient reports on arm pain on exertion. No shortness of breath while lying down. No history of heart murmur. Patient reports no cough, no wheezing or coughing up blood. Patient reports no abdominal pain, no vomiting. Normal appetite. No diarrhea and not vomiting blood. No nausea and no constipation. Patient reports no incontinence. No difficulty urinating. No hematuria. No increased frequency. Patient reports no muscle aches. No weakness, no arthralgias, no back pain. No swelling of the extremities. Patient reports no abnormal mole, no jaundice, no rashes. Reports no loss of consciousness. No weakness and no numbness. No seizures, dizziness, or headaches. The patient reports no depression, no sleep disturbance, feeling safe in a relationship and no alcohol abuse. Patient reports on fatigue. Reports no runny nose or sinus pressure. No itching, no hives, and no frequent sneezing. PHYSICAL EXAMINATION: GENERAL: Pleasant gentleman, in no acute distress, appears stated age. VITAL SIGNS: Blood pressure 160/53, pulse 55, regular. HEENT: Normocephalic, atraumatic. NECK: No bruits noted. HEART: Regular, II/ systolic ejection murmur. CONSULT REPORT [id number] WILEY KOWALSKI LUNGS: Diminished breath sounds, right base. ABDOMEN: Soft, nontender. EXTREMITIES: Pulse 2+ with no edema. DIAGNOSTIC DATA: ECG shows normal sinus rhythm. IMPRESSION: Suspect hypothyroid induced pleural effusion. Given symptomology, I think he probably will benefit from a thoracentesis. LV function is normal. TRANSINT:[id number] Voice Confirmation ID: [id number] DOCUMENT ID: [id number] JASON VILLARREAL MD at 1217 CC: [id number] DICTATION DATE: 12/17/18 0838 PHYSICAL MEDICINE SPECIALIST: 12/17/18 0913 ADM IN [place] [id number] [place] [address]
[2018-12-18 15:38] VITALS: BP 122/64
--- NOTE | 2018-12-18 19:10 | NUR ---
Received patient resting in bed, alert and oriented x 4. Oxygen on @2L/min. Right mid back dressing C/D/I. Telemetry on, rhythm SB, HR = 55/min. No voiced complaints.
[2018-12-18 20:00] VITALS: BP 136/53
[2018-12-19 00:09] VITALS: BP 129/71
--- NOTE | 2018-12-19 02:35 | NUR ---
Eyes closed, sleeping, respirations easy and regular.
[2018-12-19 04:11] VITALS: BP 141/48
--- NOTE | 2018-12-19 07:00 | NUR ---
BG check this morning = 84, not given long-acting insulin as scheduled, due to low BG. Was given yesterday after patient ate breakfast. Passed same on in report at shift change for Day Nurse to give later.
[2018-12-19 08:09] LABS: ANION GAP 9.5 mmol/L (8-16); CALCIUM 8.1 mg/dL (8.5-10.1); CARBON DIOXIDE 29.3 mmol/L (21.0-32.0); CREATININE - SERUM 1.2 mg/dL (0.6-1.3); PHOSPHOROUS 3.5 mg/dL (2.5-4.9); POTASSIUM - SERUM 3.8 mmol/L (3.5-5.1)
[2018-12-19 08:15] LABS: BASOPHILS 0.3 % (0-2); EOSINOPHILS 10.5 % (0-7); HEMATOCRIT 34.7 % (42.0-54.0); HEMOGLOBIN 11.4 g/dL (13.5-17.5); IMMATURE GRANULOCYTES 1.4 % (0-5); LYMPHOCYTES 8.2 % (15-50); MCH 32.3 pg (26.0-34.0); MCHC 32.9 g/dL (31.0-37.0); MCV 98.3 fL (80.0-100.0); MEAN PLATELET VOLUME 10.1 fL (7.4-10.4); MONOCYTES 9.7 % (2-11); NEUTROPHILS 69.9 % (40-80); PLATELET COUNT 235 10x3/uL (130-400); RBC 3.53 10x6/uL (4.20-6.10); RDW 17.6 % (11.5-14.5); WBC 7.6 10x3/uL (4.8-10.8)
[2018-12-19 09:13] VITALS: BP 150/49
[2018-12-19 11:30] VITALS: BP 159/61
--- NOTE | 2018-12-19 15:17 | NUR ---
DRSG REMOVED TO RIGHT BACK AND LEFT OPEN TO AIR.
[2018-12-19 15:30] VITALS: BP 116/50
[2018-12-19 19:45] VITALS: BP 144/45
--- NOTE | 2018-12-19 20:01 | NUR ---
INITIAL ROUNDS COMPLETED AT 1900 HRS. PT SITTING UP IN THE RECLINER. DENIES ANY DISCOMFORT. ASSESSMENT COMPLETED AT 1930. VSS. SB PER CM HR 58. MURMUR NOTED. ALERT AND ORIENTED TO PERSON, PLACE AND TIME. LUNGS DIMINISHED IN BASES BILAT. IV TO L INFUSAPORT SL. INCISION TO R MID BACK CLEAN, DRY AND INTACT. PT'S OWN SUPPORT STOCKINGS IN USE. WILL CONTINUE TO MONITOR. SR UP X2,CALL LIGHT WITHIN REACH.
--- NOTE | 2018-12-19 21:54 | NUR ---
PM [id number]. NO COVERAGE NEEDED. PM MEDS GIVEN. PT SITTING IN RECLINER; DENIES ANY DISCOMFORT. CALL LIGHT WITHIN REACH.
--- NOTE | 2018-12-20 00:22 | NUR ---
PT AWAKE; DENIES ANY DISCOMFORT. CALL LIGHT WITHIN REACH.
[2018-12-20 00:29] VITALS: BP 148/50
--- NOTE | 2018-12-20 02:44 | NUR ---
PT RESTING WITH EYES CLOSED. RESP EVEN AND REGULAR. CALL LIGHT WITHIN REACH.
[2018-12-20 03:55] VITALS: BP 159/47
--- NOTE | 2018-12-20 04:36 | NUR ---
PT AWAKE; DENIES ANY DISCOMFORT. CALL LIGHT WITHIN REACH.
[2018-12-20 05:51] LABS: CALCIUM 8.1 mg/dL (8.5-10.1); CARBON DIOXIDE 29.9 mmol/L (21.0-32.0); CREATININE - SERUM 1.2 mg/dL (0.6-1.3); PHOSPHOROUS 3.8 mg/dL (2.5-4.9); POTASSIUM - SERUM 3.9 mmol/L (3.5-5.1)
[2018-12-20 05:54] LABS: BASOPHILS 0.8 % (0-2); EOSINOPHILS 11.4 % (0-7); HEMATOCRIT 35.5 % (42.0-54.0); HEMOGLOBIN 11.4 g/dL (13.5-17.5); LYMPHOCYTES 9.2 % (15-50); MCH 31.8 pg (26.0-34.0); MCHC 32.1 g/dL (31.0-37.0); MCV 99.2 fL (80.0-100.0); MONOCYTES 8.4 % (2-11); NEUTROPHILS 69.2 % (40-80); PLATELET COUNT 232 10x3/uL (130-400); RBC 3.58 10x6/uL (4.20-6.10); RDW 17.5 % (11.5-14.5); WBC 7.7 10x3/uL (4.8-10.8)
--- NOTE | 2018-12-20 06:25 | NUR ---
VSS THROUGHOUT NIGHT. SR PER CM. AM FSBS 9S6. PT REFUSED AM SUB-Q INSULIN. NEEDS MET; WILL CONTINUE TO MONITOR.
[2018-12-20 09:22] VITALS: BP 161/53
[2018-12-20] MEDS ORDERED: SYNTHROID50 MCG PO (10:38)
[2018-12-20 13:41] VITALS: BP 170/56
--- NOTE | 2018-12-20 14:55 | NUR ---
IV AND TELEMETRY DCD. DC PLANS GIVEN. UNDERSTANDING VOICED. ESCORTED TO CAR BY W/C.
--- NOTE | 2018-12-21 10:04 | MORECARE ---
CASE MANAGEMENT DISCHARGE SUMMARY PATIENT: WILEY KOWALSKI UNIT: [id number] ADM DATE: 12/16/18 AGE: 78 : 39 SEX: M ROOM/BED: D.6768 AUTHOR: SCOTT,DOC PHYSICIAN: REFERRING PHYSICIAN: SYEDA HOUSER MD DATE OF SERVICE: 12/21/18 Discharge Plan Patient Name: WILEY KOWALSKI Facility: [facility]:[place] : 1940 Planned Disposition: Home Anticipated Discharge Date: 12/20/18 Discharge Date: 12/20/2018 Expected LOS: 4 Initial Reviewer: [email or web address] Initial Review Date: 12/18/2018 Generated: 12/21/18 11:04 am Comments DCP- Discharge Planning Updated by [email or web address]: Magda Bashir on 12/18/18 9:[address] Patient Name: WILEY KOWALSKI Admission Status: Elective Accout number: [id number] Admission Date: 12-16-2018 : 1940 Admission Diagnosis: Attending: SYEDA HOUSER Current LOS: 2 Anticipated DC Date: Planned Disposition: Home Primary Insurance: MEDICARE A & B Discharge Planning Comments: CM MET WITH PATIENT IN HIS ROOM TO DISCUSS DISCHARGE PLANNING NEEDS. HE STATED HIS PLANS ARE TO RETURN HOME WITH HIS SPOUSE AND HAS NO NEEDS. HE IS NOT OPEN TO HAVING HOME HEALTH, EVEN IF THE DOCTOR STATED HE NEEDS IT BECAUSE HE HAD A BAD EXPERIENCE WITH THEM THE LAST TIME THEY CAME OUT. HE STATED THAT THERE IS NOTHING THEY CAN DO FOR HIM THAT HIS CAN'T DO. HE STATED HE A GLUCOMETER, WALKER, WHEELCHAIR, CANE, AND OXYGEN BUT HE COULD NOT REMEMBER WITH WHO ([facility] PERMISSION RECEIVED TO CALL AND FIND OUT). HE STATED THE THOUGHT HE HAD A NEBULIZER BUT WASN'T SURE, AND SAID IF HE DID HE GOT IT FROM THE SAME PLACE HE GOT HIS OXYGEN. HE STATED THAT HE HAS BEEN IN THE HOSPITAL IN THE LAST 30 DAYS FOR THE SAME REASON "FLUID ON MY LUNG THAT HAS TO BE DRAINED". HE CURRENTLY DENIES ANY NEEDS. I HAVE ENCOURAGED HIM TO CALL IF HE WERE TO THINK OF ANY NEEDS, AND WE WOULD BE GLAD TO ASSIST. CALL PLACED TO OLEG @ [phone]. SPOKE WITH REPRESENTIVE WHO STATED THE PATIENT WAS A CLIENT OF THEIRS. HE HAS A HOME OXYGEN CONCENTRATOR AND A PORTABLE CONCENTRATOR. SHE STATED THAT HE DOES NOT HAVE NEBULIZER, BUT THEY WOUD BE GLAD TO ASSIST IF NEEDED. CM WILL CONTINUE TO FOLLOW. Endband Sizer: Magda Bashir RN DCPIA - Discharge Planning Initial Assessment Updated by [email or web address]: Magda Bashir on 12/18/18 9:55 am * Is the patient Alert and Oriented? Yes * How many steps to enter\\exit or inside your home? * PCP DR LINTON * Pharmacy [facility] [address] * Preadmission Environment Home with Family * ADLs Independent * Equipment Cane Glucometer Oxygen Rolling Walker Walker Wheelchair * List name and contact numbers for known caregivers / representatives who currently or will assist patient after discharge: LUIS FELIPE LITTLE, SPOUSE, TIFFANIE KENT, DAUGHTER, * Verbal permission to speak to the caregivers and representatives has been obtained from the patient. Yes * Community resources currently utilized None * Additional services required to return to the preadmission environment? No * Can the patient safely return to the preadmission environment? Yes * Has this patient been hospitalized within the prior 30 days at any hospital? Yes Last DP export: 12/18/18 9:12 a Patient Name: WILEY KOWALSKI Page 10400 at 1004 All edits/amendments must be made on the electronic document DICTATION DATE: 12/21/18 1004 STATISTICAL GENETICIST: MANNY 12/21/18 1004 RPT#: [id number] DC DATE:12/20/18 STATUS: DIS IN [facility] [address] [place] [address] END OF REPORT
== END 2018-12-20 14:56 | disposition home or self-care (01) | DRG 643 ==
LOC: D.M2 12:48 → D.SDCHOLD 12:48 → D.M2 12:55
PROVIDERS: General Practice; Internal Medicine Pulmonary Disease; ADMIT Internal Medicine Nephrology; ATTEND Internal Medicine Nephrology
PROC: 0W993ZZ Drainage of Right Pleural Cavity, Percutaneous Approach (ICD-10-PCS; principal; 2018-12-17 11:55)
DX: E03.2 Hypothyroidism due to medicaments and other exogenous substances (principal); I50.21 Acute systolic (congestive) heart failure; J96.21 Acute and chronic respiratory failure with hypoxia; J98.11 Atelectasis; C17.0 Malignant neoplasm of duodenum; I11.0 Hypertensive heart disease with heart failure; E11.9 Type 2 diabetes mellitus without complications; R91.1 Solitary pulmonary nodule; I08.3 Combined rheumatic disorders of mitral, aortic and tricuspid valves; D64.9 Anemia, unspecified; N40.0 Benign prostatic hyperplasia without lower urinary tract symptoms; I48.91 Unspecified atrial fibrillation; K76.1 Chronic passive congestion of liver; T46.2X5A Adverse effect of other antidysrhythmic drugs, initial encounter; Z79.01 Long term (current) use of anticoagulants; Z86.718 Personal history of other venous thrombosis and embolism; Z86.711 Personal history of pulmonary embolism

== ENCOUNTER 2019-01-11 11:45 | Inpatient (IN) | payer MEDICARE, BC ==
[~2019-01-11] VITALS: Ht 175.3 cm; Wt 83.0 kg
[~2019-01-11 11:45] MED LIST changes: +COUMADIN4 MG PO; +HUMULIN N100 U/ML SC; +SYNTHROID50 MCG PO
[2019-01-11 12:32] VITALS: BP 120/51; BMI 27.0
[2019-01-11 14:47] LABS: BASOPHILS 0.4 % (0-2); EOSINOPHILS 3.9 % (0-7); HEMATOCRIT 37.5 % (42.0-54.0); HEMOGLOBIN 12.6 g/dL (13.5-17.5); IMMATURE GRANULOCYTES 1.4 % (0-5); LYMPHOCYTES 10.5 % (15-50); MCH 32.1 pg (26.0-34.0); MCHC 33.6 g/dL (31.0-37.0); MCV 95.7 fL (80.0-100.0); MEAN PLATELET VOLUME 10.8 fL (7.4-10.4); MONOCYTES 8.2 % (2-11); NEUTROPHILS 75.6 % (40-80); RBC 3.92 10x6/uL (4.20-6.10); RDW 15.3 % (11.5-14.5); WBC 6.9 10x3/uL (4.8-10.8)
[2019-01-11 14:53] LABS: PLATELET COUNT 172 10x3/uL (130-400)
[2019-01-11 15:50] LABS: ANION GAP 8.4 mmol/L (8-16); CALCIUM 8.4 mg/dL (8.5-10.1); CARBON DIOXIDE 33.8 mmol/L (21.0-32.0); CREATININE - SERUM 1.2 mg/dL (0.6-1.3); POTASSIUM - SERUM 3.2 mmol/L (3.5-5.1)
[2019-01-11 17:09] VITALS: BP 170/53
[2019-01-11 23:00] VITALS: BP 142/52
[2019-01-12 04:30] VITALS: BP 159/48
[2019-01-12 06:38] LABS: BASOPHILS 0.3 % (0-2); EOSINOPHILS 4.2 % (0-7); HEMATOCRIT 38.1 % (42.0-54.0); HEMOGLOBIN 12.6 g/dL (13.5-17.5); LYMPHOCYTES 11.7 % (15-50); MCH 32.1 pg (26.0-34.0); MCHC 33.1 g/dL (31.0-37.0); MCV 96.9 fL (80.0-100.0); MEAN PLATELET VOLUME 10.4 fL (7.4-10.4); MONOCYTES 8.7 % (2-11); NEUTROPHILS 74.1 % (40-80); PLATELET COUNT 163 10x3/uL (130-400); RBC 3.93 10x6/uL (4.20-6.10); RDW 15.1 % (11.5-14.5); WBC 6.9 10x3/uL (4.8-10.8)
[2019-01-12 07:28] LABS: ANION GAP 5.6 mmol/L (8-16); CALCIUM 8.7 mg/dL (8.5-10.1); CARBON DIOXIDE 35.7 mmol/L (21.0-32.0); CREATININE - SERUM 1.1 mg/dL (0.6-1.3); POTASSIUM - SERUM 3.3 mmol/L (3.5-5.1); THYROID STIMULATING HORMONE 55.33 uIU/mL (0.36-3.74)
[2019-01-12 07:52] LABS: APTT 30.7 SECONDS (22.8-39.4); INR 1.14 (0.85-1.17); PROTIME 14.1 SECONDS (11.6-15.0)
[2019-01-12 09:15] VITALS: BMI 27.0
[2019-01-12 09:23] VITALS: BP 167/56
[2019-01-12 11:55] VITALS: Ht 175.3 cm; Wt 83.0 kg
[2019-01-12 12:30] VITALS: BP 163/54
[2019-01-12 16:15] VITALS: BP 164/55
[2019-01-12 17:48] LABS: APPEARANCE CLEAR (CLEAR); BILIRUBIN NEGATIVE (NEGATIVE); COLOR YELLOW (YELLOW); GLUCOSE 50 mg/dL (NEGATIVE); KETONE NEGATIVE (NEGATIVE); NITRITE NEGATIVE (NEGATIVE); PROTEIN TRACE mg/dL (NEGATIVE); UROBILINOGEN NORMAL (NORMAL)
[2019-01-12 20:00] VITALS: BP 130/63; BP 163/46
[2019-01-12 23:57] VITALS: BP 152/53
[2019-01-13 04:30] VITALS: BP 137/49
[2019-01-13 08:03] LABS: BASOPHILS 0.5 % (0-2); EOSINOPHILS 3.2 % (0-7); HEMATOCRIT 38.1 % (42.0-54.0); HEMOGLOBIN 12.5 g/dL (13.5-17.5); IMMATURE GRANULOCYTES 0.9 % (0-5); LYMPHOCYTES 8.3 % (15-50); MCH 31.6 pg (26.0-34.0); MCHC 32.8 g/dL (31.0-37.0); MCV 96.5 fL (80.0-100.0); MEAN PLATELET VOLUME 10.7 fL (7.4-10.4); NEUTROPHILS 77.1 % (40-80); PLATELET COUNT 174 10x3/uL (130-400); RBC 3.95 10x6/uL (4.20-6.10); RDW 15.1 % (11.5-14.5); WBC 6.6 10x3/uL (4.8-10.8)
[2019-01-13 08:19] LABS: CALCIUM 8.2 mg/dL (8.5-10.1); CARBON DIOXIDE 30.8 mmol/L (21.0-32.0); CHLORIDE - SERUM 106 mmol/L (98-107); CREATININE - SERUM 0.9 mg/dL (0.6-1.3); MAGNESIUM - SERUM 1.6 mg/dL (1.8-2.4); PHOSPHOROUS 3.5 mg/dL (2.5-4.9); SODIUM 145 mmol/L (136-145); UREA NITROGEN 18 mg/dL (7-18); eGFR NON AFRICAN AMERICAN 86 mL/min (90-120)
[2019-01-13 08:45] LABS: CALC OSMOLALITY 292 mosm/kg (275-300); GLUCOSE 129 mg/dL (74-106)
[2019-01-13 08:47] LABS: POTASSIUM - SERUM 2.9 mmol/L (3.5-5.1)
[2019-01-13 09:12] VITALS: BP 157/94
[2019-01-13 12:53] VITALS: BP 166/50
[2019-01-13 18:22] VITALS: BP 156/54
[2019-01-13 20:00] VITALS: BP 157/52
[2019-01-14] VITALS: BP 162/53
[2019-01-14 05:00] VITALS: BP 166/57
[2019-01-14 08:00] VITALS: BP 165/49
[2019-01-14 08:55] LABS: ANION GAP 11.1 mmol/L (8-16); BASOPHILS 0.5 % (0-2); CALCIUM 8.5 mg/dL (8.5-10.1); CARBON DIOXIDE 31.5 mmol/L (21.0-32.0); HEMATOCRIT 38.8 % (42.0-54.0); HEMOGLOBIN 12.9 g/dL (13.5-17.5); IMMATURE GRANULOCYTES 0.8 % (0-5); LYMPHOCYTES 10.4 % (15-50); MCH 31.9 pg (26.0-34.0); MCHC 33.2 g/dL (31.0-37.0); MEAN PLATELET VOLUME 10.7 fL (7.4-10.4); MONOCYTES 9.8 % (2-11); NEUTROPHILS 75.5 % (40-80); PHOSPHOROUS 3.7 mg/dL (2.5-4.9); PLATELET COUNT 177 10x3/uL (130-400); RBC 4.04 10x6/uL (4.20-6.10); RDW 14.9 % (11.5-14.5); WBC 6.7 10x3/uL (4.8-10.8)
[2019-01-14 08:56] LABS: CREATININE - SERUM 1.2 mg/dL (0.6-1.3); POTASSIUM - SERUM 3.6 mmol/L (3.5-5.1)
[2019-01-14 14:16] VITALS: BP 157/50
[2019-01-14 16:00] VITALS: BP 155/54
--- NOTE | 2019-01-14 16:32 | MORECARE ---
CASE MANAGEMENT DISCHARGE SUMMARY PATIENT: WILEY HERNANDEZ UNIT: [id number] ADM DATE: 01/11/19 AGE: 78 : 39 SEX: M ROOM/BED: D.1211 AUTHOR: WILLIAM CHAVEZ PHYSICIAN: REFERRING PHYSICIAN: KAITLIN LINTON DO DATE OF SERVICE: 01/14/19 Discharge Plan Patient Name: WILEY HERNANDEZ [facility] [facility] 1940 Planned Disposition: Home Anticipated Discharge Date: 01/14/19 Discharge Date: Expected LOS: 3 Initial Reviewer: [email or web address] Initial Review Date: 01/14/2019 Generated: 01/14/19 5:32 pm DCPIA - Discharge Planning Initial Assessment Updated by [email or web address]: Brissa Moss on 01/14/19 4:31 pm * Is the patient Alert and Oriented? Yes * How many steps to enter\exit or inside your home? * PCP Zunilda * Pharmacy [facility] * Preadmission Environment Home with Family * ADLs Independent * Equipment Cane Glucometer Grab Bars Oxygen Rolling Walker * List name and contact numbers for known caregivers / representatives who currently or will assist patient after discharge: Nisha Hernandez, spouse, * Verbal permission to speak to the caregivers and representatives has been obtained from the patient. Yes * Community resources currently utilized None * Additional services required to return to the preadmission environment? No * Can the patient safely return to the preadmission environment? Yes * Has this patient been hospitalized within the prior 30 days at any hospital? Yes Patient Name: WILEY HERNANDEZ Page 16976 at 1632 All edits/amendments must be made on the electronic document DICTATION DATE: 01/14/19 163 COMMERCIAL SINGER: MANNY 01/14/19 163 RPT#: [id number] DC DATE: STATUS: ADM IN [facility] [address] [place] [address] END OF REPORT
--- NOTE | 2019-01-14 16:47 | MORECARE ---
CASE MANAGEMENT DISCHARGE SUMMARY PATIENT: WILEY HERNANDEZ UNIT: [id number] ADM DATE: 01/11/19 AGE: 78 : 39 SEX: M ROOM/BED: D.1211 AUTHOR: SCOTTDOC PHYSICIAN: REFERRING PHYSICIAN: KAITLIN LINTON DO DATE OF SERVICE: 01/14/19 Discharge Plan Patient Name: WILEY HERNANDEZ Facility: [facility]:[place] : 1940 Planned Disposition: Home Anticipated Discharge Date: 01/14/19 Discharge Date: Expected LOS: 3 Initial Reviewer: [email or web address] Initial Review Date: 01/14/2019 Generated: 01/14/19 5:47 pm Comments DCP- Discharge Planning Updated by [email or web address]: Brissa Moss on 01/14/19 3:[address] Patient Name: WILEY HERNANDEZ Admission Status: Elective Accout number: [id number] Admission Date: 01-11-2019 : 1940 Admission Diagnosis: Attending: KAITLIN LINTON Current LOS: 3 Anticipated DC Date: 01-14-2019 Planned Disposition: Home Primary Insurance: MEDICARE A & B Discharge Planning Comments: After obtaining verbal consent, CM met with patient and spouse about discharge planning / needs. Patient states his discharge plan is to return home with his . States he has had home health through [facility] in the past. States he would VERY MUCH prefer to not get home health again, but most definitely will not ever want [facility] again. Denies any discharge planning needs at this time. States he no longer has / needs wheelchair so he returned it to [facility] in [place] where he got it. States he has a built in seat in his shower, but has not needed to use it up to this point. Has O2 concentrator and portable O2 at home through [facility]. States he is going to discharge home tomorrow. CM explained and served DC IMM. CM will continue to follow and assist as needed with discharge planning / needs. Engineering Associate: Brissa Moss DCPIA - Discharge Planning Initial Assessment Updated by [email or web address]: Brissa Moss on 01/14/19 4:31 pm * Is the patient Alert and Oriented? Yes * How many steps to enter\exit or inside your home? * PCP Shamiro * Pharmacy [facility] * Preadmission Environment Home with Family * ADLs Independent * Equipment Cane Glucometer Grab Bars Oxygen Rolling Walker * List name and contact numbers for known caregivers / representatives who currently or will assist patient after discharge: Nisha Hernandez, spouse, * Verbal permission to speak to the caregivers and representatives has been obtained from the patient. Yes * Community resources currently utilized None * Additional services required to return to the preadmission environment? No * Can the patient safely return to the preadmission environment? Yes * Has this patient been hospitalized within the prior 30 days at any hospital? Yes Coverage Notice Reviewer: [email or web address] Valerie Moss Notice Issued Date-Time: 01/14/2019 16:20 Notice Type: IM Discharge Notice Notice Delivered To: Patient Relationship to Patient: Self Private Sector Executive Name: Delivery Method: HAND - Hand Delivered Katelin Days: Prior Verbal Notification: Recipient Understood Notice: Yes Recipient Signature: Yes Med Rec Note Co-signed by Attending: Coverage Notice Comment: Last DP export: 01/14/19 3:32 p Patient Name: WILEY HERNANDEZ Page [phone] at 1647 All edits/amendments must be made on the electronic document DICTATION DATE: 01/14/191645 SATURATOR OPERATOR: MANNY 01/14/191645 RPT#: [id number] DC DATE: STATUS: ADM IN [facility] [address] [place] [address] END OF REPORT
[2019-01-14 20:51] VITALS: BP 150/55
[2019-01-15 01:11] VITALS: BP 138/65
[2019-01-15 06:21] VITALS: BP 137/51
[2019-01-15 07:58] VITALS: BP 131/53
[2019-01-15 08:08] LABS: HEMATOCRIT 38.4 % (42.0-54.0); HEMOGLOBIN 13.1 g/dL (13.5-17.5); LYMPHOCYTES 10.7 % (15-50); MCH 32.8 pg (26.0-34.0); MCHC 34.1 g/dL (31.0-37.0); MCV 96.2 fL (80.0-100.0); MEAN PLATELET VOLUME 10.5 fL (7.4-10.4); PLATELET COUNT 176 10x3/uL (130-400); RBC 3.99 10x6/uL (4.20-6.10); RDW 14.9 % (11.5-14.5); WBC 6.8 10x3/uL (4.8-10.8)
[2019-01-15 08:42] LABS: ANION GAP 10.5 mmol/L (8-16); CALCIUM 8.8 mg/dL (8.5-10.1); CARBON DIOXIDE 31.2 mmol/L (21.0-32.0); CREATININE - SERUM 1.2 mg/dL (0.6-1.3); POTASSIUM - SERUM 3.7 mmol/L (3.5-5.1)
[2019-01-15 08:43] LABS: INR 1.09 (0.85-1.17); PROTIME 13.6 SECONDS (11.6-15.0)
[2019-01-15 12:00] VITALS: BP 161/47
[2019-01-15 16:00] VITALS: BP 176/58
[2019-01-15] MEDS ORDERED: COUMADIN4 MG PO (17:45)
[2019-01-15] MEDS ORDERED: ALDACTONE25 MG PO (17:45)
[2019-01-15] MEDS ORDERED: LASIX40 MG PO (17:46)
--- NOTE | 2019-01-18 09:26 | MORECARE ---
CASE MANAGEMENT DISCHARGE SUMMARY PATIENT: WILEY HERNANDEZ UNIT: [id number] ADM DATE: 01/11/19 AGE: 78 : 39 SEX: M ROOM/BED: D.1211 AUTHOR: SCOTTDOC PHYSICIAN: REFERRING PHYSICIAN: KAITLIN LINTON DO DATE OF SERVICE: 01/18/19 Discharge Plan Patient Name: WILEY HERNANDEZ Facility: [facility]:[place] : 1940 Planned Disposition: Home Anticipated Discharge Date: 01/14/19 Discharge Date: 01/15/2019 Expected LOS: 3 Initial Reviewer: [email or web address] Initial Review Date: 01/14/2019 Generated: 01/18/19 10:26 am Comments DCP- Discharge Planning Updated by [email or web address]: Brissa Moss on 01/14/19 3:[address] Patient Name: WILEY HERNANDEZ Admission Status: Elective Accout number: [id number] Admission Date: 01-11-2019 : 1940 Admission Diagnosis: Attending: KAITLIN LINTON Current LOS: 3 Anticipated DC Date: 01-14-2019 Planned Disposition: Home Primary Insurance: MEDICARE A & B Discharge Planning Comments: After obtaining verbal consent, CM met with patient and spouse about discharge planning / needs. Patient states his discharge plan is to return home with his . States he has had home health through [facility] in the past. States he would VERY MUCH prefer to not get home health again, but most definitely will not ever want [facility] again. Denies any discharge planning needs at this time. States he no longer has / needs wheelchair so he returned it to [facility] in [place] where he got it. States he has a built in seat in his shower, but has not needed to use it up to this point. Has O2 concentrator and portable O2 at home through [facility]. States he is going to discharge home tomorrow. CM explained and served DC IMM. CM will continue to follow and assist as needed with discharge planning / needs. Retail Management Keyholder: Brissa Moss DCPIA - Discharge Planning Initial Assessment Updated by [email or web address]: Brissa Moss on 01/14/19 4:31 pm * Is the patient Alert and Oriented? Yes * How many steps to enter\exit or inside your home? * PCP Shamiro * Pharmacy [facility] * Preadmission Environment Home with Family * ADLs Independent * Equipment Cane Glucometer Grab Bars Oxygen Rolling Walker * List name and contact numbers for known caregivers / representatives who currently or will assist patient after discharge: Nisha Hernnadez, spouse, * Verbal permission to speak to the caregivers and representatives has been obtained from the patient. Yes * Community resources currently utilized None * Additional services required to return to the preadmission environment? No * Can the patient safely return to the preadmission environment? Yes * Has this patient been hospitalized within the prior 30 days at any hospital? Yes Coverage Notice Reviewer: [email or web address] Valerie Moss Notice Issued Date-Time: 01/14/2019 16:20 Notice Type: IM Discharge Notice Notice Delivered To: Patient Relationship to Patient: Self Compliance Representative Dealer Name: Delivery Method: HAND - Hand Delivered Katelin Days: Prior Verbal Notification: Recipient Understood Notice: Yes Recipient Signature: Yes Med Rec Note Co-signed by Attending: Coverage Notice Comment: Last DP export: 01/14/19 3:47 p Patient Name: WILEY HERNANDEZ Page 99525 at 0926 All edits/amendments must be made on the electronic document DICTATION DATE: 01/18/19924 TRUST ADMINISTRATOR: MANNY 01/18/19924 RPT#: [id number] DC DATE:01/15/19 STATUS: DIS IN [facility] [address] [place] [address] END OF REPORT
--- NOTE | 2019-01-20 14:38 | CN ---
PATIENT NAME:WILEY KOWALSKI MEDICAL RECORD: [id number] : 38 LOCATION:D.M3 D.1211 ADMIT DATE: 01/11/19 ACCOUNT: [id number] CONSULTING PHYSICIAN: KADEN CAO MD REFERRING PHYSICIAN: KAITLIN LINTON DO DATE OF CONSULTATION: 01/15/2019 CARDIOLOGY CONSULTATION DIAGNOSES: 1. Shortness of breath. 2. Dyspnea on exertion. 3. Pleural effusions. 4. Hypothyroidism. 5. History of atrial fibrillation. 6. Aortic valve replacement. HISTORY OF PRESENT ILLNESS: This is a gentleman who presents with shortness of breath, found to have bilateral pleural effusions. They are treating medically with diuresis, holding off on thoracentesis at this time. He recently had an echocardiogram with an ejection fraction in the 55% range. He has a history of atrial fibrillation, but he has maintained sinus rhythm. The valve is with normal structure and function in this position, but no gradient across the valve and no leak of the valve. PHYSICAL EXAMINATION: GENERAL APPEARANCE: Well-nourished, well-developed, appears stated age. Level of distress, comfortable. PSYCHIATRIC: Mental status, alert, normal affect. Orientation, oriented to time, place and person. EYES: Lids and conjunctiva, noninjected. No discharge, no pallor. ENT: Lips, teeth, gums, normal dentition. Oropharynx, no cyanosis, no pallor. NECK: Carotid arteries, bilateral normal upstroke, no bruits, no thrills. JUGULAR VEINS: No jugular venous pressure or distention. CERVICAL LYMPH NODES: Nontender, nonenlarged. THYROID: Not enlarged. Nontender. No nodules. LUNGS: Respiratory effort, unlabored. CHEST: Normal curvature. No thoracic deformity. No chest wall tenderness. Percussion, resonant. Auscultation, clear. No wheezes, no rales, no rhonchi. CARDIOVASCULAR: Precordial exam, nondisplaced. No heaves or pericardial thrills. Rate and rhythm, regular. Heart sounds, normal S1, normal S2. No S3, no gallop, no rub. Systolic murmur, not heard. Diastolic murmur, not heard. EXTREMITIES: No cyanosis, no edema. Peripheral pulses, full and equal in all extremities, except as noted. No bruits appreciated. ABDOMEN: Soft, nondistended. Normal aorta. No bruit. Nontender. No masses. Liver, nontender, no hepatomegaly. Spleen, nontender, no splenomegaly. MUSCULOSKELETAL: No joint tenderness. No joint swelling. No erythema. NEUROLOGICAL: Normal gait, normal strength, normal tone. SKIN: Warm and dry. OVERALL IMPRESSION: Shortness of breath, pleural effusion. This is noncardiac in nature. He has a normal ejection fraction, normal valvular structures at this time with the normal functioning prosthetic aortic valve and troponin has been normal with no signs or symptoms of ischemia. At this time, no other cardiac workup or treatment is necessary. CONSULT REPORT [id number] WILEY KOWALSKI TRANSINT:[id number] Voice Confirmation ID: [id number] DOCUMENT ID: [id number] KADEN CAO MD at 1438 CC: [id number] DICTATION DATE: 01/15/19 1521 VACUUM DRIER TENDER: 01/15/19 1544 DIS IN 01/15/19 [id number] [place] [address]
--- NOTE | 2019-01-20 14:39 | EC ---
PATIENT:WILEY KOWALSKI DATE OF SERVICE: 01/11/19 SEX: M MEDICAL RECORD: [id number] DATE OF : [birth year] LOCATION:D.M3 D.121 AGE OF PATIENT: 78 ADMISSION DATE: 01/11/19 REFERRING PHYSICIAN: INTERPRETING PHYSICIAN: KADEN BELLO MD ECHOCARDIOGRAM REPORT ECHO CHARGES 4 ECHO COMPLETE Date: 01/15/19 CLINICAL DIAGNOSIS: CHF/A-FIB - S/P CABG/AVR ECHOCARDIOGRAPHIC MEASUREMENTS (adult normal given) AC root (d.<3.7cm) 0 cm LV Septum d (<1.2 cm> 0 cm Valve Excursion 0 cm LV Septum (systole) 0 cm Left Atria (s.<4.0cm> 0 cm LVPW d(<1.2cm) 0 cm RV (d.<2.3cm) 0 cm LVPW (sytole) 0 cm LV diastole(<5.6CM) 0 cm MV E-F(>70mm/sec) 0 cm LV systole 0 cm LVOT Diameter 1.7 cm MV exc.(>10mm) 0 cm Est.ejection fraction (50-75%) % DOPPLER: LVIT 0 cm/sec A 0 cm/sec E 0 cm/sec LA 0 cm/sec RVSP 54.0 mmHg LVOT 129 cm/sec AOP1/2T 0 m/s Asc. Ao 225 cm/sec RVOT 0 cm/sec RA 0 cm/sec PA 0 cm/sec AV Gradient Peak 20.3 mmHg AV Mean 10.3 mmHg AV Area 1.3 cm MV Gradient Peak 0 mmHg MV Mean 0 mmHg MV Area 0 cm COMMENTS: LIMITED STUDY (2-D,COLOR,DOPPLER) COMPLETE ECHO DONE ON 12/01/18 Container Crane Operator: 1 MAILE TRANOE Spanner Operator: 1 Dr. Bello TAPE# PACS Pericardial Effusion N DATE OF SERVICE: Echocardiogram FINDINGS: 1. Left ventricular chamber size is within normal limits. Left ventricular systolic function is normal. Overall ejection fraction estimated at 50%. 2. Left atrium, right atrium, and right ventricular chamber sizes are within normal limits. 3. Valvular structures: Aortic valve is replaced with a tissue prosthesis that ECHOCARDIOGRAM REPORT [id number] WILEY KOWALSKI has normal structure and function in this position. The remaining valvular structures have normal structure and motion. 4. Doppler interrogation reveals mild aortic insufficiency, mild mitral regurgitation, mild tricuspid regurgitation, no other valvular insufficiency or stenosis. 5. No evidence of pericardial effusion or left ventricular thrombus. TRANSINT:[id number] Voice Confirmation ID: [id number] DOCUMENT ID: [id number] KADEN BELLO MD at 1439 CC: [id number] DICTATION DATE: 01/15/19 165 ACCOUNTS SUPERVISOR: 01/15/19 2355 DIS IN 01/15/19 [address] [place] [address]
== END 2019-01-15 18:20 | disposition home or self-care (01) | DRG 643 ==
LOC: D.M3 11:45
PROVIDERS: Internal Medicine Pulmonary Disease; Radiology Vascular & Interventional Radiology; ADMIT Internal Medicine Nephrology; ATTEND Family Medicine
DX: E03.9 Hypothyroidism, unspecified (principal); J96.21 Acute and chronic respiratory failure with hypoxia; I50.33 Acute on chronic diastolic (congestive) heart failure; J98.11 Atelectasis; I11.0 Hypertensive heart disease with heart failure; I27.20 Pulmonary hypertension, unspecified; I25.10 Atherosclerotic heart disease of native coronary artery without angina pectoris; I08.3 Combined rheumatic disorders of mitral, aortic and tricuspid valves; E11.9 Type 2 diabetes mellitus without complications; I48.91 Unspecified atrial fibrillation; N40.0 Benign prostatic hyperplasia without lower urinary tract symptoms; E87.6 Hypokalemia

== ENCOUNTER → 2019-10-19 10:05 | Outpatient (CLI) | payer MEDICARE, BC ==
[2019-01-12 11:55] VITALS: BMI 27.0
[~2019-10-19 10:05] MED LIST changes: +ALDACTONE25 MG PO
== END | disposition home or self-care (01) ==
LOC: D.RT 08-09 14:00 → D.RAD 08-09 14:00 → D.RT 08-09 14:45 → D.RAD 08-09 15:00 → D.RT 11:00
PROVIDERS: ATTEND Internal Medicine Pulmonary Disease
DX: J98.11 Atelectasis (principal)

== ENCOUNTER 2019-12-15 06:49 | Outpatient (CLI) | payer MEDICARE, BC ==
[~2019-12-15] VITALS: Ht 175.3 cm; Wt 90.9 kg
--- NOTE | ~2019-12-15 | HEMODYNAMI ---
PATIENT:WILEY KOWALSKI MEDICAL RECORD: [id number] : 38 LOCATION:[place] ADMISSION DATE: 12/15/19 Generatedon:12/15/201910:43 Patient name: WILEY KOWALSKI Patient #: [id number] SSN: : 1940 Date of study: 12/15/2019 Page: Of Hemodynamic Procedure Report Patient Data Patient Demographics Procedure consent was obtained First Name: WILEY Gender: Male Last Name: DEX : 1940 Middle Initial: FRANK Age: 79 year(s) Patient #: [id number] Race: Unknown Additional ID: [id number] Contact details [address]: [address] [place] [address] State: [place] City: [place] Zip code: [address] Past Medical History Allergies Allergen Reaction Date Comments Reported Other allergy 03/26/2018 FLOMAX,TERAZOSIN Admission Admission Data Admission Date: 12/15/2019 Admission Time: 6:49 Procedure Procedure Types Cath Procedure Peripheral Cath Diagnostic Procedure Venography IVC/SVC IVC Filter Retreival Procedure Description Procedure Date Procedure Date: 12/15/2019 Procedure Start Time: 9:59 Procedure Staff Name Function Sher Srivastava MD Performing Physician Dragan Silvestre RT Monitor SVEN STILES RT Scrub Melissa Collado RN Nurse Procedure Data Cath Procedure Fluoroscopy Diagnostic fluoroscopy Total fluoroscopy Time: 6.2 time: 6.2 min min Diagnostic fluoroscopy Total fluoroscopy dose: 338 dose: 338 mGy mGy Diagnostic catheters Device Type Used For End Catheter Placement DIAGNOSTIC Supertotrque MPA-2 5Fr ([id number]) Merit ULTRA BOLUS FLUSH 5Fr 65CM catheter ([id number]) Procedure Medications Medication Administration Route Dosage Heparin Flush Bag added to field 3 bags (1000units/500ml NS) Lidocaine 1% added to field 20 Versed I.V. 1 mg Fentanyl I.V. 50 mcg Versed I.V. 1 mg Fentanyl I.V. 50 mcg Hemodynamics Rest Heart Rate: 63 (bpm) Snapshots Pre Cath Intra NCS Post Cath Vital Signs Time Heart Resp SPO2 etCO2 NIBP (mmHg) Rhythm Pain Sedation Rate (ipm) (%) (mmHg) Status Level (bpm) 9:47:37 63 15 97 28.5 183/70(141) NSR 0 (11) 10(A) , No pain 9:52:12 62 20 97 27.7 172/67(132) NSR 0 (11) 10(A) , No pain 9:56:44 62 21 97 28.5 172/67(129) NSR 0 (11) 10(A) , No pain 10:01:16 63 21 97 28.5 175/73(136) NSR 0 (11) 10(A) , No pain 10:04:09 64 19 96 30 168/64(133) NSR 0 (11) 10(A) , No pain 10:08:41 60 13 95 33.8 149/61(119) NSR 0 (11) 10(A) , No pain 10:13:09 60 18 96 30 147/58(119) NSR 0 (11) 10(A) , No pain 10:17:35 61 26 96 33 150/60(128) NSR 0 (11) 10(A) , No pain 10:22:02 61 24 96 33 151/63(119) NSR 0 (11) 10(A) , No pain 10:26:28 61 15 95 33 152/60(119) NSR 0 (11) 10(A) , No pain 10:30:56 61 18 95 32.3 156/62(117) NSR 0 (11) 10(A) , No pain 10:35:23 60 30 94 31.6 152/65(121) NSR 0 (11) 10(A) , No pain 10:39:49 61 49 93 30.1 151/64(124) NSR 0 (11) 10(A) , No pain Medications Time Medication Route Dose Verified Delivered Reason Notes Effe ctiveness by by 9:50:49 Heparin Flush added 3 Sher Olivarez used for Bag to bags Carola Srivastava MD procedure (1000units/500ml field LINDSEY NS) 9:51:04 Lidocaine 1% added 20ml Sher Olivarez for local to vial Carola Srivastava MD anesthetic field LINDSEY 10:00:34 Versed I.V. 1 mg Sher Melissa for Tobias Srivastava RN sedation 10:00:45 Fentanyl I.V. 50 Sher Torres for Tobias Menard RN sedation 10:04:29 Versed I.V. 1 mg Sher Cardonaody for Tobias Srivastava RN sedation 10:04:37 Fentanyl I.V. 50 Sher Torres for mcg Tobias Srivastava RN sedation Procedure Log Time Note 9:28:08 Dragan Silvestre RT (R) (CV) sent for patient. Start room use. 9:28:16 Patient received from Outpatients to IR Alert and oriented. Tansferred to table in Supine position. 9:28:25 Time tracking: Regular hours (M-F 7:00 - 5:00) 9:28:44 Plan of Care:Hemodynamics will remain stable., Cardiac rhythm will remain stable., Comfort level will be maintained., Respiratory function will remain adequate., Patient/ family verbilizes understanding of procedure., Procedure tolerated without complication., Recovers from procedure without complications.. 9:28:48 Signed procedure consent form obtained from patient. 9:28:49 Correct patient and procedure confirmed by team. 9:28:53 Full Disclosure recording started 9:28:55 - 9:28:59 H&P Date Dictated: 12/15/2019 H&P Addendum completed by physician on day of procedure. (MUST COMPLETE FOR ALL OUTPATIENTS). 9:28:59 Pre-procedure instructions explained to patient. 9:29:00 Pre-op teaching completed and patient verbalized understanding. 9:29:07 Use device set IR Diagnostic 9:29:08 ACIST Syringe (86848) opened to sterile field. 9:29:09 ACIST Hand Control (03405) opened to sterile field. 9:29:09 ACIST Manifold (43762) opened to sterile field. 9:29:10 Bag Decanter () opened to sterile field. 9:29:10 Sterile Angiographic Pack opened to sterile field. 9:29:11 Tegaderm 4 x 4 (1626W) opened to sterile field. 9:29:18 Family in waiting room. 9:29:20 Patient NPO since Midnight. 9:29:25 Is the patient allergic to Iodine/contrast media? No. 9:29:32 Is patient on blood thinner?No 9:29:36 Patient diabetic? No. 9:29:38 If diabetic: On Metformin? No 9:29:50 - 9:30:04 ----Pre-sedation anethsthesia assessment.---- 9:30:08 Previous problem with sedation/anesthesia? No ? 9:30:09 Snore? Yes 9:30:11 Sleep apnea? No 9:30:14 Deviated septum? No 9:30:15 Opens mouth fully? Yes 9:30:16 Sticks out tongue? Yes 9:30:18 Airway obstruction? No ? 9:30:23 Dentures? Yes out 9:30:35 Patient pain scale 0/10 no pain. 9:30:45 IV patent on arrival in left hand with 0.9% NaCl at [facility]. 9:37:21 Sharps counted by scrub and verified by R.N. 9:37:21 Alarms reviewed by R. N. 9:37:33 Right Internal jugular was prepped with chlora-prep and draped in sterile fashion. 9:46:12 Vital chart was started 9:46:42 Baseline sample Acquired. 9:50:49 Heparin Flush Bag (1000units/500ml NS) 3 bags added to field was administered by Sher Srivastava MD; used for procedure; Verbal order read back and verified. 9:51:04 Lidocaine 1% 20ml vial added to field was administered by Sher Srivastava MD; for local anesthetic; Verbal order read back and verified. 9:58:42 Physician arrived 9:58:43 --------ALL STOP TIME OUT------ 9:58:43 Final Timeout: patient, procedure, and site verified with staff and physician. All members of the team are in agreement. 9:58:48 Right neck site verified by team. 9:58:53 Fire Safety Assessment: A--An alcohol-based skin anteseptic being used preoperatively., C--Open oxygen or nitrous oxide is being used. 9:58:58 3a) 45-59 Moderately reduced kidney function. 9:59:05 Maximum allowable contrast dose (3.7 X eGFR X 0.75)144.3 ml. 9:59:19 Sedation plan: IV Moderate Sedation Medication:Versed, Fentanyl 9:59:40 Procedure started. 9:59:51 Local anesthetic to right IJ vein with Lidocaine 1% by Sher Srivastava MD.INITIAL ACCESS ONLY 10:00:34 Versed 1 mg I.V. was administered by Melissa Collado RN; for sedation; Verbal order read back and verified. 10:00:45 Fentanyl 50 mcg I.V. was administered by Melissa Collado RN; for sedation ; Verbal order read back and verified. 10:01:55 SHEATH 6FR Rudyard (SHI622) opened to sterile field. 10:01:56 Micropuncture VSI 4FR kit opened to sterile field. 10:01:57 TUBING Contrast Injection High Pressure (QRN230Q) opened to sterile field. 10:01:57 TUBING Contrast Injection High Pressure (JAZ324H) opened to sterile field. 10:01:58 DOC .035 wire (V25975) opened to sterile field. 10:04:29 Versed 1 mg I.V. was administered by Melissa Collado RN; for sedation; Verbal order read back and verified. 10:04:37 Fentanyl 50 mcg I.V. was administered by Melissa Collado RN; for sedation ; Verbal order read back and verified. 10:08:27 GLIDE WIRE ANGLE 260cm (LW6717) opened to sterile field. 10:09:41 A DIAGNOSTIC Supertotrque MPA-2 5Fr (454367) was advanced over the wire and used for . 10:09:48 AMPLATZ Super stiff 180cm wire ([id number]) opened to sterile field. 10:10:57 A [employer] ULTRA BOLUS FLUSH 5Fr 65CM catheter ([id number]) was advanced over the wire and used for . 10:30:12 Procedure ended.(Physican Out) 10:30:51 Fluoroscopy time 06.20 minutes. 10:30:55 Fluoroscopy dose: 338 mGy 10:30:55 Flurop Dose total: 338 10:31:00 Sharps counted by scrub and verified by R.N. 10:31:08 Insertion/operative site no bleeding no hematoma. 10:31:22 Post-op/insertion site Right Jugular vein dressed using a 4 x 4 and Tegaderm. 10:31:57 Post right IJ vein:stable 10:38:24 Procedure and supply charges have been captured, reviewed, submitted an d are correct. 10:38:25 Post procedure instruction explained to patient.Patient verbalizes understanding. 10:39:29 Report given to Outpatients. 10:41:32 Patient transfered to Outpatients with Stretcher. 10:43:28 Vital chart was stopped Device Usage Item Name Manufacture Quantity Catalog Number Hospital Part Current Ct nimal Lot# / Charge Number Stock Stock Serial# Code ACIST Syringe Acist 1 74783 429482 476508 098309 20 (06037) Medical Systems Inc ACIST Hand Acist 1 82794 211700 064423 067855 5 Control Medical (95237) Systems Inc ACIST Manifold Acist 1 17975 211740 761078 625002 5 (64860) Medical Systems Inc Bag Decanter Microtek 1 2001S 606575 88436 196817 5 (2001S) Medical Inc. Sterile Cardinal 1 [id number] 645710 380875 5 Angiographic Health Pack Tegaderm 4 x 4 3M 1 1626W 351179 450228 577705 5 (1626W) SHEATH 6FR Terumo 1 [id number] 703375 993981 662359 40 Rudyard (FEO716) Micropuncture VSI VASCULAR 1 7266V 492153 171200 5 VSI 4FR kit SOLUTIONS TUBING Merit 2 [id number] 006131 601187 722970 5 Contrast Medical Injection High Pressure (CSQ994B) DOC .035 wire Cook Medical 1 [id number] 954280 770327 5 (P04728) GLIDE WIRE Terumo 1 GT3546 255488 930104 870466 5 ANGLE 260cm (QZ4649) DIAGNOSTIC Cardinal 1 876402 094270 084841 027201 5 Proper Cloth MPA-2 5Fr (942260) AMPLATZ Super Novi 1 [id number] 493807 280138 418575 5 [id number] stiff 180cm Scientific wire ([id number]) Merit ULTRA Merit 1 [id number] 597468 813290 5 BOLUS FLUSH Medical 5Fr 65CM catheter ([id number]) Signature Audit [place] Stage Time Signature Unsigned Intra-Procedure 12/15/2019 Dragan 10:43:24 AM [place] RT (R) (CV) [facility] [address] [place] [address]
[2019-12-15 07:14] LABS: BASOPHILS 0.5 % (0-2); EOSINOPHILS 3.9 % (0-7); HEMATOCRIT 40.4 % (42.0-54.0); HEMOGLOBIN 13.1 g/dL (13.5-17.5); IMMATURE GRANULOCYTES 0.8 % (0-5); LYMPHOCYTES 9.3 % (15-50); MCH 29.1 pg (26.0-34.0); MCHC 32.4 g/dL (31.0-37.0); MCV 89.8 fL (80.0-100.0); MEAN PLATELET VOLUME 9.4 fL (7.4-10.4); MONOCYTES 10.5 % (2-11); PLATELET COUNT 233 10x3/uL (130-400); WBC 8.3 10x3/uL (4.8-10.8)
[2019-12-15 07:25] LABS: INR 1.6 (0.85-1.17); PROTIME 18.9 SECONDS (11.6-15.0)
[2019-12-15 07:26] LABS: ANION GAP 12.1 mmol/L (8-16); APTT 38.3 SECONDS (22.8-39.4); CALCIUM 8.8 mg/dL (8.5-10.1); CREATININE - SERUM 1.4 mg/dL (0.6-1.3); POTASSIUM - SERUM 4.1 mmol/L (3.5-5.1)
[2019-12-15 08:41] VITALS: BP 160/58; Ht 175.3 cm; Wt 90.9 kg
== END 2019-12-15 13:30 | disposition home or self-care (01) ==
LOC: D.SP 06:49 → D.RAD 09:30 → D.SP 13:30
PROVIDERS: ATTEND General Practice
DX: Z86.711 Personal history of pulmonary embolism (principal)